=== PATIENT | male | born 1950 | race Caucasian/White ===

== ENCOUNTER 2017-08-03 00:51 | Inpatient (IN) | payer MEDICARE, OTHER ==
--- NOTE | 2017-08-03 01:02 | ED Physician Chart ---
ED Chief Complaint/HPI - Patient Information Date Seen:: 08/03/17 Time Seen:: 01:02 Chief Complaint:: Increased agitation History of Present Illness:: 66 yo male was brought from SNF to ER for evaluation of agitation and aggressiveness toward staff. He was trying to pull right right chest Fady catheter. He had ESRD on hemodialysis. 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 Allergies:: Allergies Allergy/AdvReac Type Severity Reaction Status Date / Time No Known Allergies Allergy Verified 08/03/17 00:52 ED Review of Systems - Review of Systems General/Constitutional: No fever Skin: No bruising Head: No headache Eyes: No pain ENT: No nasal drainage Neck: No neck pain Cardio Vascular: No chest pain Pulmonary: No cough GI: No nausea, No vomiting Musculoskeletal: No bone or joint pain Neurological: No focal symptoms ED Past Medical History - Past Medical History Past Medical History: HTN, DM, Dyslipidemia, PUD/GERD, ESRD, Thyroid disorder, Other (anemia of chronic kidney disease, BPH) Social History: Non Smoker, No Alcohol, No Drug Use Surgical History: CABG, other (Amputations of right 3rd, 4th, and 5th digits, Bilateral BTK amputations) Family Medical History - Family Member Mother History Unknown: Yes ED Physical Exam - Physical Examination General/Constitutional: Awake Other Gen/Cons comments:: Oriented to self and date Head: Atraumatic Eyes: PERRL Skin: No rash ENMT: Nasal exam nl Neck: No nuchal rigidity Other Respiratory comments:: Right chest Fady catheter intact. Decreased left lung sound Cardio Vascular: RRR, No murmur, gallop, rubs, NL S1 S2 GI: No tenderness/rebounding/guarding Other Extremities comments:: Bilateral BTK amputations, Right 3rd, 4th and 5th digits amputations Neuro/Psych: Normal sensory exam ED Labs/Radiology/EKG Results - Radiology Results Results: CXR: left lungs opacity ED Assessment - Assessment General Assessment: Left lung pneumonia Psychosis ESRD Dependent on dialysis Assessment/Comments:: CBC, CMP, UA CXR, EKG Oxygen support Admit to med surg for further evaluation and management ED Septic Shock - . Is Septic Shock (SBP<90, OR Lactate>4 mmol\L) present?: No ED Reassessment (Disposition) - Reassessment Reassessment Condition:: Improved - Patient Disposition Discharge/Transfer:: Acute Care w/in this hosp Admitting Medical Physician:: Hira Gaston
[2017-08-03 01:24] LABS: % BASOPHILS 0.7 % (0.0-2.0); % EOSINOPHILS 5.2 % (0.0-5.0); % LYMPHOCYTES 28.2 % (20.0-50.0); % MONOCYTES 10.9 % (2.0-10.0); EOSINOPHILE ABSOLUTE 0.3 Th/cmm (0.1-0.4); HEMATOCRIT 27.5 % (41.0-60); HEMOGLOBIN 8.9 gm/dL (12-16); LYMPHOCYTE ABSOLUTE 1.9 Th/cmm (1.5-3.0); MEAN CELL VOLUME 95.2 fl (80-99); MEAN CORPUSCULAR HEMOGLOBIN 30.8 pg (27.0-31.0); MEAN CORPUSCULAR HGB CONC 32.4 pg (28.0-36.0); MEAN PLATELET VOLUME 7.9 fl; MONOCYTE ABSOLUTE 0.7 Th/cmm (0.3-1.0); NEUTROPHILE ABSOLUTE 3.7 Th/cmm (1.8-8.0); PLATELET COUNT 308 Th/cmm (150-400); RED BLOOD COUNT 2.88 Mil/cmm (3.80-5.80); RED CELL DISTRIBUTION WIDTH 13.7 % (11.5-20.0); WHITE BLOOD COUNT 6.6 Th/cmm (4.8-10.8)
[2017-08-03 01:39] LABS: ALB/GLOB RATIO 0.8 (1.0-1.8); ALBUMIN 2.8 gm/dL (4.2-5.5); ANION GAP 9.3 (7.0-16.0); BILIRUBIN,TOTAL 0.6 mg/dL (0.3-1.0); CALCIUM SERUM 8.4 mg/dL (8.6-10.3); CARBON DIOXIDE 27.2 mEq/L (21.0-31.0); CREATININE - SERUM 2.6 mg/dL (0.7-1.3); GFR AFRICAN-AMERICAN 31.7 ml/min (>90); GFR NON AFRICAN-AMERICAN 26.2 ml/min; POTASSIUM SERUM 3.5 mEq/L (3.5-5.1); TOTAL PROTEIN,SERUM 6.4 gm/dL (6.0-8.3)
[2017-08-03] MEDS ORDERED: Albuterol Nebulizer 2.5mg/3mL HHN PRN (07:00)
[2017-08-03] MEDS ORDERED: Ipratropium Neb 0.5 mg/2.5 mL UD HHN PRN (07:21)
[2017-08-03] MEDS ORDERED: Morphine Sulfate 4 mg/mL 1mL Syr IVP PRN (07:23)
[2017-08-03] MEDS ORDERED: Dextrose 50% 50 mL Abboject IVP PRN (07:23)
[2017-08-03] MEDS ORDERED: Mag Sulfate 2gm/50mL Premix 2 GM/50 ML BAG IV PRN (07:23)
[2017-08-03] MEDS ORDERED: Potassium Chloride 20 mEq ER Tab PO PRN (07:23)
[2017-08-03] MEDS ORDERED: Potassium Chloride 40 MEQ, Lidocaine 1% 20mL Vial 25 MG in Sodium Chloride 0.9% 250 ML IV PRN (07:23)
[2017-08-03] MEDS ORDERED: INSULIN ASPART SLIDING SCALE 100 UNITS/ML UNIT SUBQ SCH (07:30)
--- NOTE | 2017-08-03 08:18 | Diagnostic Imaging Report ---
Portable chest x-ray HISTORY: Shortness of breath The exam demonstrates opacification of the majority of the left hemithorax suggesting a large pleural effusion. Underlying pulmonary parenchymal pathology cannot be excluded. Obscuration of the left heart margin. Multiple metallic densities project over the right upper chest and right neck region. Additional surgical clips noted in the right upper hemithorax. A vascular catheter extends into the region of the right atrium. IMPRESSION: 1. Opacification of the majority of the left hemithorax suggesting a pleural effusion. Underlying pulmonary parenchymal pathology cannot be excluded 2. Surgical changes 3. Metallic densities projecting over the right upper chest and right lower neck region 4. Vascular catheter tip extending into the region of the right atrium.
--- NOTE | 2017-08-03 08:43 | History & Physical ---
ADMIT DATE: 08/03/2017 CHIEF COMPLAINT: Agitation, psychosis, aggressive behavior, worsening confusion and pulling out hemodialysis access. HISTORY OF PRESENT ILLNESS: The patient is a 66-year-old male. He lives in a facility. He sees Dr. Hopkins as a psychiatrist. He has history of mood disorder and psychosis as well. Yesterday, he became more confused and he was more altered as well. He was also very agitated and aggressive towards the staff. Apparently, he also pulled out his right chest Fady catheter. He is a dialysis patient, along with history of diabetes along with anemia, bilateral BKAs, dyslipidemia and peripheral arterial disease. SOCIAL HISTORY: No documented history of alcohol, tobacco, or drug abuse. FAMILY HISTORY: Noncontributory. ALLERGIES: No known drug allergies. SURGICAL HISTORY: Positive for bilateral BKAs and dialysis access placement. MEDICATIONS: All medications reviewed and reconciled. FAMILY HISTORY: Noncontributory. REVIEW OF SYSTEMS: GENERAL: Positive for worsening fatigue, worsening confusion, decreased appetite and aggressive behavior as well. HEENT: No recent head trauma or change in vision, taste, hearing, or smell. ORAL: No recent pain or discharge. NECK: No recent tracheal deviation. ABDOMEN: No recent pain or distension. SKIN: No recent rashes. HEMATOLOGY: He has history of severe peripheral arterial disease. NEUROLOGIC: He has history of diabetic neuropathy. ENDOCRINE: He has history of diabetes out of control. EXTREMITIES/MUSCULOSKELETAL: He has history of bilateral BKAs. PHYSICAL EXAMINATION: VITAL SIGNS: Temperature is 98.8 degrees, heart rate is 86, respirations 17, blood pressure 166/66. Currently, no pain. GENERAL: No acute distress. He is sleepy; however, he does awaken to verbal and physical stimulus. He is confused. HEENT: No acute issues. NECK: Trachea is midline. No JVD. CARDIOVASCULAR: Regular rate and rhythm. RESPIRATORY: Decreased breath sounds bilaterally. PSYCHIATRIC: He has labile mood. He had episodes of psychosis and aggressive behavior yesterday. NEUROLOGIC: No evidence of acute stroke or seizure activity. EXTREMITIES: Bilateral BKA stumps are dry. GENITOURINARY: No hematuria is noted. LABORATORY DATA: White count is 6.6, hemoglobin is 8.9, platelet count 308,000. Sodium 134, potassium 3.5, chloride 101, bicarbonate 27.2, BUN 15, creatinine 2.6, glucose 214, alkaline phosphatase 189. Albumin is 2.8. Chest x-ray and UA are pending. ASSESSMENT: 1. Metabolic encephalopathy. 2. Vasomotor nephropathy. 3. Psychosis. 4. Anemia of chronic illness. 5. Moderate malnutrition. 6. Diabetes mellitus, out of control. 7. Bilateral BKA. 8. Deep vein thrombosis. 9. Hyperlipidemia. 10. Hyponatremia. 11. Neuropathy/diabetic neuropathy. 12. Peripheral arterial disease. 13. Hypertension, out of control. PLAN: UA and chest x-ray are pending. We will continue the patient's home medications. They have all been reviewed. He is on Eliquis for his history of DVT. Continue atorvastatin for dyslipidemia. Dr. Hopkins has been consulted. He may be a candidate for Geropsych Unit once he is medically cleared. His blood pressure medications have been reconciled. His blood pressure has been fluctuating. Also, his diabetes is out of control. He has been refusing fingerstick checks. I advised him to let us do his insulin sliding scale. Continue levothyroxine for his hypothyroidism. Also Dr. Zimmerman has been consulted for nephrology. He will require dialysis. We will assess for the need for a new catheter. JOB# [id number]
[2017-08-03] MEDS ORDERED: Non-Formulary Item 1 EA (Apixaban [Eliquis] 5 MG) PO SCH (09:00)
[2017-08-03] MEDS: INSULIN ASPART SLIDING SCALE 100 UNITS/ML UNIT SUBQ SCH ×5 (09:30→20:51)
[2017-08-03] MEDS: Vitamin B Complex w/Vitamin C Tab PO SCH ×2 (09:32→09:43)
[2017-08-03] MEDS: Ferrous Sulfate 325 MG TAB PO SCH ×4 (09:32→20:50)
[2017-08-03] MEDS: Aspirin 81mg Chewable Tab PO SCH (09:33)
[2017-08-03] MEDS: Levothyroxine 0.1 Mg Tab PO SCH (09:36)
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
[2017-08-03 16:23] LABS: A1C % 5.2 % (4.0-6.0)
[2017-08-03 18:12] LABS: URINE MICROSCOPIC INDICATED? YES; URINE SOURCE RANDOM
[2017-08-03 18:17] LABS: URINE BILIRUBIN NEGATIVE (NEGATIVE); URINE BLOOD LARGE (NEGATIVE); URINE GLUCOSE (UA) NEGATIVE (NEGATIVE); URINE KETONE NEGATIVE (NEGATIVE); URINE LEUKOCYTE ESTERASE TRACE (NEGATIVE); URINE NITRATE NEGATIVE (NEGATIVE); URINE PROTEIN 100 mg/dL (NEGATIVE); URINE UROBILINOGEN 0.2 E.U./dL (0.2 - 1.0)
[2017-08-03 18:23] LABS: URINE CLARITY HAZY (CLEAR); URINE COLOR YELLOW
[2017-08-03 18:25] LABS: URINE BACTERIA NONE SEEN /hpf (NONE SEEN); URINE EPITHELIAL CELLS FEW /lpf (FEW); URINE RBC 25-50 /hpf (0-5); URINE WBC 0-2 /hpf (0-5)
--- NOTE | 2017-08-03 21:37 | Consultation ---
DATE OF CONSULTATION: 08/03/2017 PSYCHIATRIC CONSULT PATIENT'S AGE: 66-year-old. SEX: Male. PHYSICIAN: Dr. Gaston. PROPERTY MANAGEMENT BOOKKEEPER: Dr. Hopkins. REASON FOR THE CONSULT: Psychosis and agitation. HISTORY OF PRESENT ILLNESS: The patient is a 66-year-old male who was admitted to the hospital because of increased agitation and irritability. The patient is living in a [facility] in the [facility]. I received a call from the nursing melting supervisor and the facility because the patient has been agitated and irritable and aggressive with the staff and he was transferred to the hospital. The patient currently is confused and agitated. Because of his agitation, I was not able to answer any of my questions coherently. Also, has been fighting with the staff and resisting care. PAST PSYCHIATRIC HISTORY: The patient has history of dementia and psychosis. PAST MEDICAL HISTORY: The patient has hypertension as well as diabetes mellitus and hyperlipidemia as well as peptic ulcer disease and hypothyroidism. SOCIAL HISTORY: The patient lives in [facility]. No known alcohol or drug use. ALLERGIES: No known allergies. MENTAL STATUS EXAM: The patient appears older than his stated age. Agitated. Disheveled. Restless. Disorganized thoughts. The patient did not answer any questions because of his agitation and irritability. The patient is agitated and he is restless and unable to answer any of my questions or follow any of my instructions. Poor insight and poor judgment. ASSESSMENT: PRIMARY DIAGNOSIS: Unspecified psychosis. SECONDARY DIAGNOSIS: Dementia, moderate to severe, with psychotic features. TREATMENT PLAN: We will monitor the patient's behavior closely. We will start individual as well as milieu psychotherapy. Also, we will start the patient on Seroquel 12.5 mg twice a day and we will follow up. Thanks to Dr. Gaston and we will follow with you. JOB# [id number]
--- NOTE | 2017-08-03 22:47 | Consultation ---
DATE OF CONSULTATION: 08/03/2017 RENAL CONSULTATION REFERRING PHYSICIAN: Dr. Gaston. REASON FOR CONSULTATION: End-stage renal disease, on chronic hemodialysis. HISTORY OF PRESENT ILLNESS: I was kindly asked by Dr. Gaston to evaluate this 66-year-old male with end-stage renal disease. The patient lives in a facility in [place]. Yesterday, he was confused, altered and agitated. He pulled out his right chest Fady catheter; therefore, he was sent to this hospital for Geropsych. PAST MEDICAL HISTORY: Diabetes, hypertension, bilateral BKA, dyslipidemia, peripheral artery disease and end-stage renal disease. FAMILY HISTORY: Noncontributory. ALLERGIES: No known drug allergies. SOCIAL HISTORY: Negative for smoking, alcohol or drugs. SURGICAL HISTORY: Bilateral BKA and dialysis access. MEDICATIONS: As listed in the chart. FAMILY HISTORY: Noncontributory. LABORATORY DATA: White count 6.6, H and H is 8.9 and 27.5 and platelets 208. Potassium 3.5, bicarbonate 27, BUN is 15, creatinine is 2.6 and glucose is 183. PHYSICAL EXAMINATION: VITAL SIGNS: Blood pressure is 164/79, heart rate is 85 and temperature 97.6. HEENT: Anicteric sclerae. NECK: Supple. No JVD. LUNGS: Clear to auscultation bilaterally. CARDIOVASCULAR: Regular rate and rhythm. ABDOMEN: Soft, nontender and nondistended. EXTREMITIES: No edema, no cyanosis. He has bilateral BKA. NEUROLOGIC: The patient is lethargic. ASSESSMENT AND PLAN: A 66-year-old male with diabetes, hypertension, bilateral below-knee amputations, end-stage renal disease and psychosis. The patient will be dialyzed tomorrow morning. We will make sure that the catheter is in the right place. JOB# [id number]
--- NOTE | 2017-08-04 01:49 | Consultation ---
DATE OF CONSULTATION: 08/03/[address] Gaston. Thank you very much Dr. Gsaton for this consultation. HISTORY OF PRESENT ILLNESS: This is a 66-year-old male who was getting agitated. He lives in the facility. He has history of end-stage renal disease, on dialysis for the past year. According to the family, the patient has history of diabetes, bilateral BKA and he was found to have pleural effusion on the chest x-ray and we were called for further evaluation. The patient denies any shortness of breath, minimal congestion on and off. He denies any distress. SOCIAL HISTORY: No smoking, drinking, or drug use. PHYSICAL EXAMINATION: GENERAL: Awake, alert, not in acute distress. VITAL SIGNS: Temperature is 97.6, pulse 85, respiration 16, blood pressure 164/79, saturation 99%. HEENT: Atraumatic, normocephalic. Pupils reactive to light and accommodation. Ears, nose and throat are normal. NECK: Supple. No JVD. CHEST: There are decreased breath sounds in left base, few rhonchi bilaterally. HEART: Regular rate and rhythm. ABDOMEN: Soft, nontender. EXTREMITIES: No edema. LABORATORY DATA: WBC 6.6, hemoglobin 8.9, hematocrit 27.5, platelets 308. Sodium is 134, potassium 3.5, BUN is 15, creatinine 2.6. TSH is 5.22. Chest x-ray, bilateral effusion, more significant on the left side, the cardiomegaly. IMPRESSION: This is a 66-year-old male with some fluid overload and significant pleural effusion on the left side without any consolidation as well. PLAN: 1. CT of the chest. 2. Ultrasound-guided thoracentesis of the left side. 3. Hemodialysis. Follow up chest x-ray. We will follow the patient with you. Thank you very much for this consultation. JOB# [id number]
[2017-08-04 06:21] LABS: % EOSINOPHILS 5.1 % (0.0-5.0); % LYMPHOCYTES 28.4 % (20.0-50.0); % MONOCYTES 11.8 % (2.0-10.0); % NEUTROPHILS 53.7 % (40.0-80.0); BASOPHILE ABSOLUTE 0.1 Th/cumm (0-0.2); EOSINOPHILE ABSOLUTE 0.4 Th/cmm (0.1-0.4); HEMATOCRIT 27.9 % (41.0-60); HEMOGLOBIN 9.4 gm/dL (12-16); LYMPHOCYTE ABSOLUTE 2.3 Th/cmm (1.5-3.0); MEAN CELL VOLUME 93.6 fl (80-99); MEAN CORPUSCULAR HEMOGLOBIN 31.7 pg (27.0-31.0); MEAN CORPUSCULAR HGB CONC 33.8 pg (28.0-36.0); MEAN PLATELET VOLUME 7.8 fl; NEUTROPHILE ABSOLUTE 4.3 Th/cmm (1.8-8.0); PLATELET COUNT 294 Th/cmm (150-400); RED BLOOD COUNT 2.98 Mil/cmm (3.80-5.80); RED CELL DISTRIBUTION WIDTH 14.2 % (11.5-20.0); WHITE BLOOD COUNT 8.1 Th/cmm (4.8-10.8)
[2017-08-04] MEDS: Levothyroxine 0.1 Mg Tab PO SCH (06:35)
[2017-08-04 06:38] LABS: ANION GAP 11.1 (7.0-16.0); CARBON DIOXIDE 25.9 mEq/L (21.0-31.0); CREATININE - SERUM 3.9 mg/dL (0.7-1.3); GFR AFRICAN-AMERICAN 19.9 ml/min (>90); GFR NON AFRICAN-AMERICAN 16.4 ml/min
[2017-08-04] MEDS: INSULIN ASPART SLIDING SCALE 100 UNITS/ML UNIT SUBQ SCH ×4 (06:48→21:34)
[2017-08-04 07:05] LABS: INR 1.09 (0.5-1.4); PROTHROMBIN TIME (TEST) 11.3 SECONDS (9.5-11.5)
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
[2017-08-04] MEDS: Aspirin 81mg Chewable Tab PO SCH (08:41)
[2017-08-04] MEDS: Ferrous Sulfate 325 MG TAB PO SCH ×3 (08:41→21:25)
[2017-08-04] MEDS: Vitamin B Complex w/Vitamin C Tab PO SCH (08:42)
--- NOTE | 2017-08-04 10:39 | Diagnostic Imaging Report ---
Ultrasound-guided left thoracentesis HISTORY: Left pleural effusion COMPARISON: CT chest 07/26/2017 Technique/procedure: Informed consent was obtained and sterile techniques were utilized. Using ultrasound guidance 1.8 liters of red tinged colored fluid was drained from the left pleural space and sent to the laboratory for analysis. The patient tolerated the procedure without any immediate complications. IMPRESSION: Successful left-sided ultrasound-guided thoracentesis as above.
--- NOTE | 2017-08-04 10:39 | Progress Notes ---
DATE: 08/04/2017 SUBJECTIVE: Chart reviewed and the patient interviewed. Also, discussed the patient's condition with the staff and reviewed records and labs. The patient seems to be slightly calmer than before. He also seems to be less irritable and less agitated. The patient also still has episodes of anger and irritability, but seems to be less than before. Otherwise, the patient continued to comply with taking his medications with no side effects of gabapentin or Seroquel. [facility]# [id number]
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
[2017-08-04] MEDS: Piperacillin/Tazobact 2.25 gm in 0.9% NS 50 ML IV SCH ×2 (12:02→21:25)
--- NOTE | 2017-08-04 14:58 | Diagnostic Imaging Report ---
CHEST X-RAY: AP view INDICATION: Status post left thoracentesis, left pneumothorax COMPARISON: Chest x-ray earlier the same day FINDINGS: Right dialysis catheter is stable. There is a left-sided pneumothorax estimated at 25% greatest along the left apex. There is probable minimal pneumothorax along the left base. A small left effusion is noted. Left basal airspace disease is noted. Mild cardiomegaly is noted. IMPRESSION: Left-sided pneumothorax estimated at 25% greatest along the left apex. Clinical correlation and continued follow-up is recommended. Small left effusion and left basal airspace disease. Results were conveyed to the referring team following the exam.
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
--- NOTE | 2017-08-04 16:32 | General Progress Note ---
Subjective - Review of Systems Service Date: 08/04/17 Subjective: patient seen and examined. patient had thorocentesis 1.8 liters removed feeling better Objective - Results Result Diagrams: 08/04/17 06:10 08/04/17 06:10 Recent Labs: Laboratory Last Values WBC 8.1 Th/cmm (4.8-10.8) 08/04/17 06:10 RBC 2.98 Mil/cmm (3.80-5.80) L 08/04/17 06:10 Hgb 9.4 gm/dL (12-16) L 08/04/17 06:10 Hct 27.9 % (41.0-60) L 08/04/17 06:10 MCV 93.6 fl (80-99) 08/04/17 06:10 MCH 31.7 pg (27.0-31.0) H 08/04/17 06:10 MCHC Differential 33.8 pg (28.0-36.0) 08/04/17 06:10 RDW 14.2 % (11.5-20.0) 08/04/17 06:10 Plt Count 294 Th/cmm (150-400) 08/04/17 06:10 MPV 7.8 fl 08/04/17 06:10 Neutrophils % 53.7 % (40.0-80.0) 08/04/17 06:10 Lymphocytes % 28.4 % (20.0-50.0) 08/04/17 06:10 Monocytes % 11.8 % (2.0-10.0) H 08/04/17 06:10 Eosinophils % 5.1 % (0.0-5.0) H 08/04/17 06:10 Basophils % 1.0 % (0.0-2.0) 08/04/17 06:10 PT 11.3 SECONDS (9.5-11.5) 08/04/17 06:10 INR 1.09 (0.5-1.4) 08/04/17 06:10 PTT (Actin FS) 30.0 SECONDS (26.0-38.0) 08/04/17 06:10 Sodium 135 mEq/L (136-145) L 08/04/17 06:10 Potassium 4.0 mEq/L (3.5-5.1) 08/04/17 06:10 Chloride 102 mEq/L (98-107) 08/04/17 06:10 Carbon Dioxide 25.9 mEq/L (21.0-31.0) 08/04/17 06:10 Anion Gap 11.1 (7.0-16.0) 08/04/17 06:10 BUN 28 mg/dL (7-25) H 08/04/17 06:10 Creatinine 3.9 mg/dL (0.7-1.3) H 08/04/17 06:10 Est GFR ( Amer) 19.9 ml/min (>90) 08/04/17 06:10 Est GFR (Non-Af Amer) 16.4 ml/min 08/04/17 06:10 BUN/Creatinine Ratio 7.2 08/04/17 06:10 Glucose 125 mg/dL (70-105) H 08/04/17 06:10 POC Glucose 198 MG/DL (70 - 105) H 08/04/17 12:01 Hemoglobin A1c % 5.2 % (4.0-6.0) 08/03/17 01:15 Calcium 9.0 mg/dL (8.6-10.3) 08/04/17 06:10 Magnesium 1.8 mg/dL (1.9-2.7) L 08/03/17 01:15 Total Bilirubin 0.6 mg/dL (0.3-1.0) 08/03/17 01:15 AST 22 U/L (13-39) 08/03/17 01:15 ALT 13 U/L (7-52) 08/03/17 01:15 Alkaline Phosphatase 189 U/L (34-104) H 08/03/17 01:15 Total Protein 6.4 gm/dL (6.0-8.3) 08/03/17 01:15 Albumin 2.8 gm/dL (4.2-5.5) L 08/03/17 01:15 Globulin 3.6 gm/dL 08/03/17 01:15 Albumin/Globulin Ratio 0.8 (1.0-1.8) L 08/03/17 01:15 TSH 5.22 uIU/ml (0.34-5.60) 08/03/17 01:15 Urine Source RANDOM 08/02/17 17:50 Urine Color YELLOW 08/02/17 17:50 Urine Clarity HAZY (CLEAR) 08/02/17 17:50 Urine pH 7.0 (4.6 - 8.0) 08/02/17 17:50 Ur Specific [place] 1.020 (1.005-1.030) 08/02/17 17:50 Urine Protein 100 mg/dL (NEGATIVE) H 08/02/17 17:50 Urine Glucose (UA) NEGATIVE mg/dL (NEGATIVE) 08/02/17 17:50 Urine Ketones NEGATIVE mg/dL (NEGATIVE) 08/02/17 17:50 Urine Blood LARGE (NEGATIVE) H 08/02/17 17:50 Urine Nitrate NEGATIVE (NEGATIVE) 08/02/17 17:50 Urine Bilirubin NEGATIVE (NEGATIVE) 08/02/17 17:50 Urine Urobilinogen 0.2 E.U./dL (0.2 - 1.0) 08/02/17 17:50 Ur Leukocyte Esterase TRACE (NEGATIVE) H 08/02/17 17:50 Urine RBC 25-50 /hpf (0-5) H 08/02/17 17:50 Urine WBC 0-2 /hpf (0-5) 08/02/17 17:50 Ur Epithelial Cells FEW /lpf (FEW) 08/02/17 17:50 Urine Bacteria NONE SEEN /hpf (NONE SEEN) 08/02/17 17:50 - Physical Exam Vitals and I&O: Vital Signs Temp 97.4 F 08/04/17 10:50 Pulse 83 08/04/17 14:23 Resp 20 08/04/17 14:23 BP 88/51 08/04/17 13:44 Pulse Ox 96 08/04/17 14:23 Intake & Output 08/03/17 08/04/17 08/04/17 18:59 06:59 18:59 Intake Total 600 Output Total 15 Balance 585 Weight (lbs) 65.317 kg 65.317 kg Intake: Oral 600 Output: Urine 15 Other: # Voids 2 0 # Bowel Movements 0 Weight Source Estimated Bedscale Active Medications: Current Medications Acetaminophen (Tylenol) 650 mg PO Q6H PRN PRN Reason: HEADACHE/TEMP ABOVE 100F Stop: 10/02/17 07:22 Albuterol Sulfate (Albuterol 2.5mg/3ml Neb Ud) 2.5 mg HHN Q4HRT PRN PRN Reason: Shortness of Breath or Wheeze Stop: 10/02/17 06:59 Aspirin (Aspirin Chewable) 81 mg PO DAILY [facility] Stop: 10/02/17 08:59 Last Admin: 08/04/17 08:41 Dose: Not Given Atorvastatin Calcium (Lipitor) 40 mg PO HS [facility] Stop: 10/02/17 20:59 Last Admin: 08/03/17 20:49 Dose: 40 mg Carvedilol (Coreg) 3.125 mg PO BID [facility] Stop: 10/02/17 08:59 Last Admin: 08/04/17 08:43 Dose: Not Given Dextrose (D50w) 50 ml IVP PRN PRN PRN Reason: BLOOD SUGAR BELOW 60 Stop: 10/02/17 07:22 Docusate Sodium (Colace) 100 mg PO BID [facility] Stop: 10/02/17 08:59 Last Admin: 08/04/17 08:42 Dose: 100 mg Famotidine (Pepcid) 20 mg PO [facility] Stop: 10/02/17 20:59 Last Admin: 08/03/17 20:49 Dose: 20 mg Ferrous Sulfate (Iron) 325 mg PO TID [facility] Stop: 10/02/17 08:59 Last Admin: 08/04/17 13:43 Dose: Not Given Gabapentin (Neurontin) 300 mg PO [facility] Stop: 10/02/17 20:59 Last Admin: 08/03/17 20:49 Dose: 300 mg Hydralazine HCl (Apresoline) 25 mg PO TID [facility] Stop: 10/02/17 08:59 Last Admin: 08/04/17 13:43 Dose: Not Given Potassium Chloride 40 meq/Lidocaine HCl 25 mg/ Sodium Chloride 272.5 mls @ 68 mls/hr IV DAILY PRN PRN Reason: k level less than 3.2 Stop: 10/02/17 07:22 Magnesium Sulfate (Magnesium Sulfate Premix) 2 gm in 50 mls @ 25 mls/hr IV DAILY PRN PRN Reason: Magnesium level less than 1.6 Stop: 10/02/17 07:22 Piperacillin Sod/Tazobactam (Sod 2.25 gm/ Sodium Chloride) 50 mls @ 100 mls/hr IV Q8HR [facility] Stop: 10/03/17 12:59 Last Admin: 08/04/17 12:02 Dose: 100 mls/hr Insulin Aspart (Novolog Insulin Sliding Scale) 0 units SUBQ ACHS [facility] PRN Reason: Protocol Stop: 10/02/17 07:29 Last Admin: 08/04/17 13:43 Dose: Not Given Ipratropium [place] (Atrovent Neb 0.5mg/2.5ml) 0.5 mg HHN Q4HRT PRN PRN Reason: Shortness of Breath or Wheeze Stop: 10/02/17 07:20 Isosorbide Dinitrate (Isordil) 10 mg PO TID [facility] Stop: 10/02/17 08:59 Last Admin: 08/04/17 13:44 Dose: Not Given Levothyroxine Sodium (Synthroid) 0.1 mg PO QDAC [facility] Stop: 10/02/17 08:59 Last Admin: 08/04/17 06:35 Dose: 0.1 mg Lorazepam (Ativan) 1 mg IVP Q4HR PRN; Protocol PRN Reason: Anxiety Stop: 10/02/17 07:22 Magnesium Oxide (Mag-Oxide) 400 mg PO BID PRN PRN Reason: Mg less than 1.9 Stop: 10/02/17 07:22 Last Admin: 08/04/17 08:42 Dose: 400 mg Miscellaneous (Apixaban [Eliquis]) 5 mg PO BID [facility] Stop: 10/02/17 08:59 Miscellaneous (Clinical Monitoring) 1 [facility] DAILY PRN PRN Reason: RENAL Stop: 10/02/17 10:23 Miscellaneous (Zosyn Iv Per Pharmacy) 1 [facility] PRN PRN PRN Reason: PROTOCOL Stop: 10/03/17 08:27 Miscellaneous (Pharmacy To Dose) 1 [facility] PRN [facility] Stop: 10/05/17 15:59 Morphine Sulfate (Morphine) 1 mg IVP Q4HR PRN PRN Reason: Severe Pain Stop: 10/02/17 07:22 Nitroglycerin (Nitrostat) 0.4 mg SL TID PRN PRN Reason: Chest Pain Stop: 10/02/17 07:20 Ondansetron HCl (Zofran) 4 mg IVP Q6H PRN PRN Reason: Nausea / Vomiting Stop: 10/02/17 07:22 Potassium Chloride (Klor-Con) 40 meq PO DAILY PRN PRN Reason: k level less than 3.5 Stop: 10/02/17 07:22 Quetiapine Fumarate 100 mg/ (Quetiapine Fumarate 25 mg) 125 mg PO BID [facility] Stop: 10/02/17 09:59 Last Admin: 08/04/17 08:47 Dose: Not Given Tamsulosin HCl (Flomax) 0.4 mg PO DAILY [facility] Stop: 10/02/17 08:59 Last Admin: 08/04/17 08:41 Dose: 0.4 mg Vitamin B Complex/Vit C/Folic Acid (Vitamin B Complex W/Vitamin C) 1 tab PO DAILY [facility] Stop: 10/02/17 08:59 Last Admin: 08/04/17 08:42 Dose: 1 tab Zinc Sulfate (Zinc Sulfate) 220 mg PO DAILY [facility] Stop: 10/02/17 08:59 Last Admin: 08/04/17 08:41 Dose: 220 mg Zolpidem Tartrate (Ambien) 5 mg PO HS PRN PRN Reason: Insomnia Stop: 10/02/17 07:20 General: Cooperative, No acute distress HEENT: Atraumatic, PERRLA Neck: Supple, no JVD Cardiovascular: Regular rate, Normal S1, Normal S2 Lungs: Other (has bl rales and congestion) Abdomen: Bowel sounds, Soft Extremities: Other (has bl bka) - Procedures Procedures: Procedures Procedure Code Date ASPIRATE PLEURA W/ IMAGING 87103 08/03/17 DRAINAGE OF LEFT PLEURAL CAVITY, PERCUTANEOUS APPROACH [id number] 08/03/17 Assessment/Plan - Assessment Assessment: ESRD PLEURAL EFFUSION PNEUMONIA DM TYPE 2 PVD B/L BKA - Plan Plan: CONTINUE HD SUPPORT Nutritional Asmnt/Malnutr-PDOC - Dietary Evaluation Malnutrition Findings (Please click <Entered> for more info): Nutritional Asmnt/Malnutrition Start: 08/03/17 17: 24 Text: Status: Complete Freq: Document 08/03/17 17:24 AMOS (Rec: 08/03/17 17:41 AMOS [email or web address]) Nutritional Asmnt/Malnutrition Patient General Information Nutritional Screening High Risk Consult Diagnosis PNA Pertinent Medical Hx/Surgical Hx HTN, DM, dyslipidemia, PUD/ GERD, ESRD, thyroid disorder, anemia of CKD, BPH, CABG, bilateral BKA, amputations of right 3rd, 4th and 5th digits Subjective Information Consult received for BS 214 at admission and low moni score, chronic surgical site. Pt seen sleeping at time of visit. RN reported pt ate well , consumed 100% of breakfast this morning. Current Diet Order/ Nutrition Support [facility]-60 Pertinent Medications colace, iron, novolog, synthroid, vit B complex w/vit C, zinc Pertinent Labs 08/03 Na 134, K 3.5, Cl 101, BUN 15, Cr 2.6, glucose 214, POC 183-196, A1c 5.2, Ca 8.4 Nutritional Hx/Data Height 1.65 m Height (Calculated Centimeters) 165.1 Current Weight (lbs) 65.317 kg Weight (Calculated Kilograms) 65.3 Weight (Calculated Grams) 81095.3 [place] Body Weight 136 % [place] Body Weight 105 Body Mass Index (BMI) 23.9 GI Symptoms GI Symptoms None Last BM 08/03 x 2 Difficult in: None Skin Integrity/Comment: Moni 12 scab to left wrist and left arm, reddened scar to sacrum Current %PO Good (75-100%) Estimated Nutritional Goals BEE in Kcals: Using Current wt Calories/Kcals/Kg 25-30 Kcals Calculated 5295-5350 Protein: Using Current wt Protein g/k-1.2 Protein Calculated 64-77 Fluid: ml 1600-1920ml (1ml/kcal) Nutritional Problem 1. Problem Problem altered nutrition related labs Etiology hx of DM Signs/Symptoms: glucose 214, POC 183-196 Malnutrition Alert Protein-Calorie Malnutrition N/A Is there a minimum of two criteria No selected? Query Text:Check all the applicable criteria. A minimum of two criteria are recommended for diagnosis of either severe or non-severe malnutrition. Intervention/Recommendation Comments 1. Continue with [facility]-60 diet as ordered. 2. Monitor PO intake, wt, labs and skin integrity 3. F/U as moderate risk in 3-5 days, 4/-08/09 Expected Outcomes/Goals Expected Outcomes/Goals 1. PO intake to meet at least 75% of nutritional needs. 2. Wt stability, skin to remain intact, labs to approach WNL.
[2017-08-04 20:10] LABS: BODY FLUID SOURCE THROACENTHESIS
[2017-08-04 20:11] LABS: BF APPEARANCE BLOODY; BF COLOR RED; BF WBC 239 /cumm
[2017-08-04 20:12] LABS: BF MONOCYTES 4 %; BF RBC 19350 /cumm
[2017-08-05] MEDS: Piperacillin/Tazobact 2.25 gm in 0.9% NS 50 ML IV SCH ×3 (04:16→21:13)
[2017-08-05 06:20] LABS: % BASOPHILS 0.6 % (0.0-2.0); % EOSINOPHILS 4.6 % (0.0-5.0); % LYMPHOCYTES 21.1 % (20.0-50.0); % MONOCYTES 11.9 % (2.0-10.0); % NEUTROPHILS 61.8 % (40.0-80.0); EOSINOPHILE ABSOLUTE 0.4 Th/cmm (0.1-0.4); HEMATOCRIT 28.5 % (41.0-60); HEMOGLOBIN 9.5 gm/dL (12-16); LYMPHOCYTE ABSOLUTE 1.8 Th/cmm (1.5-3.0); MEAN CELL VOLUME 94.7 fl (80-99); MEAN CORPUSCULAR HEMOGLOBIN 31.7 pg (27.0-31.0); MEAN CORPUSCULAR HGB CONC 33.5 pg (28.0-36.0); MEAN PLATELET VOLUME 8.3 fl; NEUTROPHILE ABSOLUTE 5.1 Th/cmm (1.8-8.0); PLATELET COUNT 306 Th/cmm (150-400); RED CELL DISTRIBUTION WIDTH 14.1 % (11.5-20.0); WHITE BLOOD COUNT 8.3 Th/cmm (4.8-10.8)
[2017-08-05] MEDS: INSULIN ASPART SLIDING SCALE 100 UNITS/ML UNIT SUBQ SCH ×4 (06:39→21:21)
[2017-08-05] MEDS: Levothyroxine 0.1 Mg Tab PO SCH (06:50)
[2017-08-05 06:51] LABS: ANION GAP 13.5 (7.0-16.0); CARBON DIOXIDE 23.2 mEq/L (21.0-31.0); CREATININE - SERUM 3.4 mg/dL (0.7-1.3); GFR AFRICAN-AMERICAN 23.3 ml/min (>90); GFR NON AFRICAN-AMERICAN 19.2 ml/min; POTASSIUM SERUM 3.7 mEq/L (3.5-5.1)
--- NOTE | 2017-08-05 09:08 | Diagnostic Imaging Report ---
CHEST X-RAY: AP view INDICATION: Pneumothorax COMPARISON: Chest x-ray 07/26/2018 FINDINGS: Left apical pneumothorax and probable left basal pneumothorax is noted estimated at 25-30%. Increased left lower lung zone markings are noted. Right dialysis catheter is stable. IMPRESSION: Left-sided pneumothorax greatest along the left apex estimated at 25% Increased left basal lung markings may be due to atelectasis versus less likely infiltrate.
--- NOTE | 2017-08-05 09:17 | General Progress Note ---
Subjective - Review of Systems Service Date: 08/05/17 Subjective: Pt seen and eval. I've been discussin care with daughter in detail. She was able to answer many questions. 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 Pt is very non complaint with food. He still eats desserts in spite of dm-ooc. Pt more comfortable now. No fevers or chills. No cough. Has sob with exertion. Pt is status post L thoracentesis on 08/04/17, and 1.8 liters removed. Has small Pneumothorax. Objective - Results Result Diagrams: 08/05/17 05:50 08/05/17 05:50 Recent Labs: Laboratory Last Values WBC 8.3 Th/cmm (4.8-10.8) 08/05/17 05:50 RBC 3.00 Mil/cmm (3.80-5.80) L 08/05/17 05:50 Hgb 9.5 gm/dL (12-16) L 08/05/17 05:50 Hct 28.5 % (41.0-60) L 08/05/17 05:50 MCV 94.7 fl (80-99) 08/05/17 05:50 MCH 31.7 pg (27.0-31.0) H 08/05/17 05:50 MCHC Differential 33.5 pg (28.0-36.0) 08/05/17 05:50 RDW 14.1 % (11.5-20.0) 08/05/17 05:50 Plt Count 306 Th/cmm (150-400) 08/05/17 05:50 MPV 8.3 fl 08/05/17 05:50 Neutrophils % 61.8 % (40.0-80.0) 08/05/17 05:50 Lymphocytes % 21.1 % (20.0-50.0) 08/05/17 05:50 Monocytes % 11.9 % (2.0-10.0) H 08/05/17 05:50 Eosinophils % 4.6 % (0.0-5.0) 08/05/17 05:50 Basophils % 0.6 % (0.0-2.0) 08/05/17 05:50 PT 11.3 SECONDS (9.5-11.5) 08/04/17 06:10 INR 1.09 (0.5-1.4) 08/04/17 06:10 PTT (Actin FS) 30.0 SECONDS (26.0-38.0) 08/04/17 06:10 Sodium 136 mEq/L (136-145) 08/05/17 05:50 Potassium 3.7 mEq/L (3.5-5.1) 08/05/17 05:50 Chloride 103 mEq/L (98-107) 08/05/17 05:50 Carbon Dioxide 23.2 mEq/L (21.0-31.0) 08/05/17 05:50 Anion Gap 13.5 (7.0-16.0) 08/05/17 05:50 BUN 22 mg/dL (7-25) 08/05/17 05:50 Creatinine 3.4 mg/dL (0.7-1.3) H 08/05/17 05:50 Est GFR ( Amer) 23.3 ml/min (>90) 08/05/17 05:50 Est GFR (Non-Af Amer) 19.2 ml/min 08/05/17 05:50 BUN/Creatinine Ratio 6.5 08/05/17 05:50 Glucose 139 mg/dL (70-105) H 08/05/17 05:50 POC Glucose 141 MG/DL (70 - 105) H 08/05/17 06:37 Hemoglobin A1c % 5.2 % (4.0-6.0) 08/03/17 01:15 Calcium 9.0 mg/dL (8.6-10.3) 08/05/17 05:50 Magnesium 1.8 mg/dL (1.9-2.7) L 08/03/17 01:15 Total Bilirubin 0.6 mg/dL (0.3-1.0) 08/03/17 01:15 AST 22 U/L (13-39) 08/03/17 01:15 ALT 13 U/L (7-52) 08/03/17 01:15 Alkaline Phosphatase 189 U/L (34-104) H 08/03/17 01:15 Total Protein 6.4 gm/dL (6.0-8.3) 08/03/17 01:15 Albumin 2.8 gm/dL (4.2-5.5) L 08/03/17 01:15 Globulin 3.6 gm/dL 08/03/17 01:15 Albumin/Globulin Ratio 0.8 (1.0-1.8) L 08/03/17 01:15 TSH 5.22 uIU/ml (0.34-5.60) 08/03/17 01:15 Urine Source RANDOM 08/02/17 17:50 Urine Color YELLOW 08/02/17 17:50 Urine Clarity HAZY (CLEAR) 08/02/17 17:50 Urine pH 7.0 (4.6 - 8.0) 08/02/17 17:50 Ur Specific [place] 1.020 (1.005-1.030) 08/02/17 17:50 Urine Protein 100 mg/dL (NEGATIVE) H 08/02/17 17:50 Urine Glucose (UA) NEGATIVE mg/dL (NEGATIVE) 08/02/17 17:50 Urine Ketones NEGATIVE mg/dL (NEGATIVE) 08/02/17 17:50 Urine Blood LARGE (NEGATIVE) H 08/02/17 17:50 Urine Nitrate NEGATIVE (NEGATIVE) 08/02/17 17:50 Urine Bilirubin NEGATIVE (NEGATIVE) 08/02/17 17:50 Urine Urobilinogen 0.2 E.U./dL (0.2 - 1.0) 08/02/17 17:50 Ur Leukocyte Esterase TRACE (NEGATIVE) H 08/02/17 17:50 Urine RBC 25-50 /hpf (0-5) H 08/02/17 17:50 Urine WBC 0-2 /hpf (0-5) 08/02/17 17:50 Ur Epithelial Cells FEW /lpf (FEW) 08/02/17 17:50 Urine Bacteria NONE SEEN /hpf (NONE SEEN) 08/02/17 17:50 Fluid Source THROACENTHESIS 08/04/17 11:00 Fluid Color RED 08/04/17 11:00 Fluid Appearance BLOODY 08/04/17 11:00 Fluid WBC 239 /cumm 08/04/17 11:00 Fluid RBC 96347 /cumm 08/04/17 11:00 Fluid Neutrophils 5 % 08/04/17 11:00 Fluid Lymphocytes 89 % 08/04/17 11:00 Fluid Monocytes 4 % 08/04/17 11:00 Fluid Eosinophils 1 % 08/04/17 11:00 Fluid Basophils 1 % 08/04/17 11:00 Fluid Glucose 118.0 mg/dL 08/04/17 11:00 - Physical Exam Vitals and I&O: Vital Signs Temp 97.7 F 08/05/17 04:00 Pulse 87 08/05/17 08:43 Resp 20 08/05/17 08:43 BP 138/62 08/05/17 04:00 Pulse Ox 97 08/05/17 08:43 Intake & Output 08/04/17 08/05/17 08/05/17 18:59 06:59 18:59 Intake Total 50 770 Balance 50 770 Weight (lbs) 65.317 kg Intake: Intake, IV Amount 50 50 Piperacillin Sodium/ 50 50 Tazobact 2.25 gm In Sodium Chloride 0.9% 50 ml @ 100 mls/hr IV Q8HR [facility] Rx#:[id number] Oral 720 Other: # Voids 2 # Bowel Movements 1 Weight Source Estimated Active Medications: Current Medications Acetaminophen (Tylenol) 650 mg PO Q6H PRN PRN Reason: HEADACHE/TEMP ABOVE 100F Stop: 10/02/17 07:22 Albuterol Sulfate (Albuterol 2.5mg/3ml Neb Ud) 2.5 mg HHN Q4HRT PRN PRN Reason: Shortness of Breath or Wheeze Stop: 10/02/17 06:59 Aspirin (Aspirin Chewable) 81 mg PO DAILY [facility] Stop: 10/02/17 08:59 Last Admin: 08/04/17 08:41 Dose: Not Given Atorvastatin Calcium (Lipitor) 40 mg PO HS [facility] Stop: 10/02/17 20:59 Last Admin: 08/04/17 21:24 Dose: 40 mg Carvedilol (Coreg) 3.125 mg PO BID [facility] Stop: 10/02/17 08:59 Last Admin: 08/04/17 17:12 Dose: Not Given Dextrose (D50w) 50 ml IVP PRN PRN PRN Reason: BLOOD SUGAR BELOW 60 Stop: 10/02/17 07:22 Docusate Sodium (Colace) 100 mg PO BID [facility] Stop: 10/02/17 08:59 Last Admin: 08/04/17 17:12 Dose: 100 mg Famotidine (Pepcid) 20 mg PO HS [facility] Stop: 10/02/17 20:59 Last Admin: 08/04/17 21:25 Dose: 20 mg Ferrous Sulfate (Iron) 325 mg PO TID [facility] Stop: 10/02/17 08:59 Last Admin: 08/04/17 21:25 Dose: 325 mg Gabapentin (Neurontin) 300 mg PO HS [facility] Stop: 10/02/17 20:59 Last Admin: 08/04/17 21:25 Dose: 300 mg Hydralazine HCl (Apresoline) 25 mg PO TID [facility] Stop: 10/02/17 08:59 Last Admin: 08/04/17 21:24 Dose: 25 mg Potassium Chloride 40 meq/Lidocaine HCl 25 mg/ Sodium Chloride 272.5 mls @ 68 mls/hr IV DAILY PRN PRN Reason: k level less than 3.2 Stop: 10/02/17 07:22 Magnesium Sulfate (Magnesium Sulfate Premix) 2 gm in 50 mls @ 25 mls/hr IV DAILY PRN PRN Reason: Magnesium level less than 1.6 Stop: 10/02/17 07:22 Piperacillin Sod/Tazobactam (Sod 2.25 gm/ Sodium Chloride) 50 mls @ 100 mls/hr IV Q8HR [facility] Stop: 10/03/17 12:59 Last Admin: 08/05/17 04:16 Dose: 100 mls/hr Insulin Aspart (Novolog Insulin Sliding Scale) 0 units SUBQ ACHS [facility] PRN Reason: Protocol Stop: 10/02/17 07:29 Last Admin: 08/05/17 06:39 Dose: Not Given Ipratropium [place] (Atrovent Neb 0.5mg/2.5ml) 0.5 mg HHN Q4HRT PRN PRN Reason: Shortness of Breath or Wheeze Stop: 10/02/17 07:20 Isosorbide Dinitrate (Isordil) 10 mg PO TID [facility] Stop: 10/02/17 08:59 Last Admin: 08/04/17 21:24 Dose: 10 mg Levothyroxine Sodium (Synthroid) 0.1 mg PO QDAC [facility] Stop: 10/02/17 08:59 Last Admin: 08/05/17 06:50 Dose: 0.1 mg Lorazepam (Ativan) 1 mg IVP Q4HR PRN; Protocol PRN Reason: Anxiety Stop: 10/02/17 07:22 Magnesium Oxide (Mag-Oxide) 400 mg PO BID PRN PRN Reason: Mg less than 1.9 Stop: 10/02/17 07:22 Last Admin: 08/04/17 08:42 Dose: 400 mg Miscellaneous (Clinical Monitoring) 1 [facility] DAILY PRN PRN Reason: RENAL Stop: 10/02/17 10:23 Miscellaneous (Zosyn Iv Per Pharmacy) 1 [facility] PRN PRN PRN Reason: PROTOCOL Stop: 10/03/17 08:27 Miscellaneous (Pharmacy To Dose) 1 [facility] PRN [facility] Stop: 10/05/17 15:59 Morphine Sulfate (Morphine) 1 mg IVP Q4HR PRN PRN Reason: Severe Pain Stop: 10/02/17 07:22 Nitroglycerin (Nitrostat) 0.4 mg SL TID PRN PRN Reason: Chest Pain Stop: 10/02/17 07:20 Ondansetron HCl (Zofran) 4 mg IVP Q6H PRN PRN Reason: Nausea / Vomiting Stop: 10/02/17 07:22 Potassium Chloride (Klor-Con) 40 meq PO DAILY PRN PRN Reason: k level less than 3.5 Stop: 10/02/17 07:22 Quetiapine Fumarate 100 mg/ (Quetiapine Fumarate 25 mg) 125 mg PO BID [facility] Stop: 10/02/17 09:59 Last Admin: 08/04/17 17:12 Dose: 125 mg Rivaroxaban (Xarelto) 10 mg PO DAILY [facility] Stop: 10/04/17 08:59 Tamsulosin HCl (Flomax) 0.4 mg PO DAILY [facility] Stop: 10/02/17 08:59 Last Admin: 08/04/17 08:41 Dose: 0.4 mg Vitamin B Complex/Vit C/Folic Acid (Vitamin B Complex W/Vitamin C) 1 tab PO DAILY [facility] Stop: 10/02/17 08:59 Last Admin: 08/04/17 08:42 Dose: 1 tab Zinc Sulfate (Zinc Sulfate) 220 mg PO DAILY [facility] Stop: 10/02/17 08:59 Last Admin: 08/04/17 08:41 Dose: 220 mg Zolpidem Tartrate (Ambien) 5 mg PO HS PRN PRN Reason: Insomnia Stop: 10/02/17 07:20 General: Cooperative, No acute distress HEENT: Atraumatic, PERRLA Neck: Supple, no JVD Cardiovascular: Regular rate, Normal S1, Normal S2 Lungs: Other (has bl rales and congestion) Abdomen: Bowel sounds, Soft Extremities: Other (has bl bka) - Procedures Procedures: Procedures Procedure Code Date ASPIRATE PLEURA W/ IMAGING 96330 08/03/17 DRAINAGE OF LEFT PLEURAL CAVITY, PERCUTANEOUS APPROACH [id number] 08/03/17 Assessment/Plan - Assessment Assessment: Asp PNA ME VMN Anemia of Ch ill Psychosis Mod malnut CAD with hx of quad bypass sx in 2013 Dm-OOC BL BKA PAD Hyponatremia Diabetic Nephropathy and Neuropathy HTN-OOC L pleural effusiob L Pneumothorax - Plan Plan: Pt is scheduled for US guided thoracentesis of L pleural effusion. Dr. Hernandez and Dr. Zimmerman have seen the pt. Scheduled for dialysis today. On IV zosyn. Met with daughter. Discussed diabetic control. Status post L thoracentesis with 1.8 liters removed. Has L pneumothorax. Dr. Saez and Dr. Hernandez following. Nutritional Asmnt/Malnutr-PDOC - Dietary Evaluation Malnutrition Findings (Please click <Entered> for more info): Nutritional Asmnt/Malnutrition Start: 08/03/17 17: 24 Text: Status: Complete Freq: Document 08/03/17 17:24 HEN (Rec: 08/03/17 17:41 [email or web address] [email or web address]) Nutritional Asmnt/Malnutrition Patient General Information Nutritional Screening High Risk Consult Diagnosis PNA Pertinent Medical Hx/Surgical Hx HTN, DM, dyslipidemia, PUD/ GERD, ESRD, thyroid disorder, anemia of CKD, BPH, CABG, bilateral BKA, amputations of right 3rd, 4th and 5th digits Subjective Information Consult received for BS 214 at admission and low moni score, chronic surgical site. Pt seen sleeping at time of visit. RN reported pt ate well , consumed 100% of breakfast this morning. Current Diet Order/ Nutrition Support CCHO-60gm Pertinent Medications colace, iron, novolog, synthroid, vit B complex w/vit C, zinc Pertinent Labs 08/03 Na 134, K 3.5, Cl 101, BUN 15, Cr 2.6, glucose 214, POC 183-196, A1c 5.2, Ca 8.4 Nutritional Hx/Data Height 1.65 m Height (Calculated Centimeters) 165.1 Current Weight (lbs) 65.317 kg Weight (Calculated Kilograms) 65.3 Weight (Calculated Grams) 80227.3 [place] Body Weight 136 % [place] Body Weight 105 Body Mass Index (BMI) 23.9 GI Symptoms GI Symptoms None Last BM 08/03 x 2 Difficult in: None Skin Integrity/Comment: Moni Kothari scab to left wrist and left arm, reddened scar to sacrum Current %PO Good (75-100%) Estimated Nutritional Goals BEE in Kcals: Using Current wt Calories/Kcals/Kg 25-30 Kcals Calculated 3848-5124 Protein: Using Current wt Protein g/k-1.2 Protein Calculated 64-77 Fluid: ml 1600-1920ml (1ml/kcal) Nutritional Problem 1. Problem Problem altered nutrition related labs Etiology hx of DM Signs/Symptoms: glucose 214, POC 183-196 Malnutrition Alert Protein-Calorie Malnutrition N/A Is there a minimum of two criteria No selected? Query Text:Check all the applicable criteria. A minimum of two criteria are recommended for diagnosis of either severe or non-severe malnutrition. Intervention/Recommendation Comments 1. Continue with CCHO-60gm diet as ordered. 2. Monitor PO intake, wt, labs and skin integrity 3. F/U as moderate risk in 3-5 days, 08/07-08/09 Expected Outcomes/Goals Expected Outcomes/Goals 1. PO intake to meet at least 75% of nutritional needs. 2. Wt stability, skin to remain intact, labs to approach WNL.
[2017-08-05] MEDS: Aspirin 81mg Chewable Tab PO SCH ×2 (10:00→12:51)
[2017-08-05] MEDS: Ferrous Sulfate 325 MG TAB PO SCH ×5 (10:01→21:00)
[2017-08-05] MEDS: Vitamin B Complex w/Vitamin C Tab PO SCH (10:07)
--- NOTE | 2017-08-05 12:43 | General Progress Note ---
Subjective - Review of Systems Service Date: 08/05/17 Subjective: patient seen and examined. patient had thorocentesis 1.8 liters removed feeling better Objective - Results Result Diagrams: 08/05/17 05:50 08/05/17 05:50 Recent Labs: Laboratory Last Values WBC 8.3 Th/cmm (4.8-10.8) 08/05/17 05:50 RBC 3.00 Mil/cmm (3.80-5.80) L 08/05/17 05:50 Hgb 9.5 gm/dL (12-16) L 08/05/17 05:50 Hct 28.5 % (41.0-60) L 08/05/17 05:50 MCV 94.7 fl (80-99) 08/05/17 05:50 MCH 31.7 pg (27.0-31.0) H 08/05/17 05:50 MCHC Differential 33.5 pg (28.0-36.0) 08/05/17 05:50 RDW 14.1 % (11.5-20.0) 08/05/17 05:50 Plt Count 306 Th/cmm (150-400) 08/05/17 05:50 MPV 8.3 fl 08/05/17 05:50 Neutrophils % 61.8 % (40.0-80.0) 08/05/17 05:50 Lymphocytes % 21.1 % (20.0-50.0) 08/05/17 05:50 Monocytes % 11.9 % (2.0-10.0) H 08/05/17 05:50 Eosinophils % 4.6 % (0.0-5.0) 08/05/17 05:50 Basophils % 0.6 % (0.0-2.0) 08/05/17 05:50 PT 11.3 SECONDS (9.5-11.5) 08/04/17 06:10 INR 1.09 (0.5-1.4) 08/04/17 06:10 PTT (Actin FS) 30.0 SECONDS (26.0-38.0) 08/04/17 06:10 Sodium 136 mEq/L (136-145) 08/05/17 05:50 Potassium 3.7 mEq/L (3.5-5.1) 08/05/17 05:50 Chloride 103 mEq/L (98-107) 08/05/17 05:50 Carbon Dioxide 23.2 mEq/L (21.0-31.0) 08/05/17 05:50 Anion Gap 13.5 (7.0-16.0) 08/05/17 05:50 BUN 22 mg/dL (7-25) 08/05/17 05:50 Creatinine 3.4 mg/dL (0.7-1.3) H 08/05/17 05:50 Est GFR ( Amer) 23.3 ml/min (>90) 08/05/17 05:50 Est GFR (Non-Af Amer) 19.2 ml/min 08/05/17 05:50 BUN/Creatinine Ratio 6.5 08/05/17 05:50 Glucose 139 mg/dL (70-105) H 08/05/17 05:50 POC Glucose 141 MG/DL (70 - 105) H 08/05/17 06:37 Hemoglobin A1c % 5.2 % (4.0-6.0) 08/03/17 01:15 Calcium 9.0 mg/dL (8.6-10.3) 08/05/17 05:50 Magnesium 1.8 mg/dL (1.9-2.7) L 08/03/17 01:15 Total Bilirubin 0.6 mg/dL (0.3-1.0) 08/03/17 01:15 AST 22 U/L (13-39) 08/03/17 01:15 ALT 13 U/L (7-52) 08/03/17 01:15 Alkaline Phosphatase 189 U/L (34-104) H 08/03/17 01:15 Total Protein 6.4 gm/dL (6.0-8.3) 08/03/17 01:15 Albumin 2.8 gm/dL (4.2-5.5) L 08/03/17 01:15 Globulin 3.6 gm/dL 08/03/17 01:15 Albumin/Globulin Ratio 0.8 (1.0-1.8) L 08/03/17 01:15 TSH 5.22 uIU/ml (0.34-5.60) 08/03/17 01:15 Urine Source RANDOM 08/02/17 17:50 Urine Color YELLOW 08/02/17 17:50 Urine Clarity HAZY (CLEAR) 08/02/17 17:50 Urine pH 7.0 (4.6 - 8.0) 08/02/17 17:50 Ur Specific [place] 1.020 (1.005-1.030) 08/02/17 17:50 Urine Protein 100 mg/dL (NEGATIVE) H 08/02/17 17:50 Urine Glucose (UA) NEGATIVE mg/dL (NEGATIVE) 08/02/17 17:50 Urine Ketones NEGATIVE mg/dL (NEGATIVE) 08/02/17 17:50 Urine Blood LARGE (NEGATIVE) H 08/02/17 17:50 Urine Nitrate NEGATIVE (NEGATIVE) 08/02/17 17:50 Urine Bilirubin NEGATIVE (NEGATIVE) 08/02/17 17:50 Urine Urobilinogen 0.2 E.U./dL (0.2 - 1.0) 08/02/17 17:50 Ur Leukocyte Esterase TRACE (NEGATIVE) H 08/02/17 17:50 Urine RBC 25-50 /hpf (0-5) H 08/02/17 17:50 Urine WBC 0-2 /hpf (0-5) 08/02/17 17:50 Ur Epithelial Cells FEW /lpf (FEW) 08/02/17 17:50 Urine Bacteria NONE SEEN /hpf (NONE SEEN) 08/02/17 17:50 Fluid Source THROACENTHESIS 08/04/17 11:00 Fluid Color RED 08/04/17 11:00 Fluid Appearance BLOODY 08/04/17 11:00 Fluid WBC 239 /cumm 08/04/17 11:00 Fluid RBC 16469 /cumm 08/04/17 11:00 Fluid Neutrophils 5 % 08/04/17 11:00 Fluid Lymphocytes 89 % 08/04/17 11:00 Fluid Monocytes 4 % 08/04/17 11:00 Fluid Eosinophils 1 % 08/04/17 11:00 Fluid Basophils 1 % 08/04/17 11:00 Fluid Glucose 118.0 mg/dL 08/04/17 11:00 Fluid LDH 190 U/L 08/04/17 11:00 - Physical Exam Vitals and I&O: Vital Signs Temp 97.3 F 08/05/17 08:00 Pulse 88 08/05/17 10:02 Resp 20 08/05/17 08:43 BP 108/50 08/05/17 10:02 Pulse Ox 97 08/05/17 08:43 Intake & Output 08/04/17 08/05/17 08/05/17 18:59 06:59 18:59 Intake Total 50 820 Balance 50 820 Weight (lbs) 65.317 kg 65.317 kg Intake: Intake, IV Amount 50 100 Piperacillin Sodium/ 50 100 Tazobact 2.25 gm In Sodium Chloride 0.9% 50 ml @ 100 mls/hr IV Q8HR [facility] Rx#:[id number] Oral 720 Other: # Voids 2 # Bowel Movements 1 Weight Source Estimated Bedscale Active Medications: Current Medications Acetaminophen (Tylenol) 650 mg PO Q6H PRN PRN Reason: HEADACHE/TEMP ABOVE 100F Stop: 10/02/17 07:22 Albuterol Sulfate (Albuterol 2.5mg/3ml Neb Ud) 2.5 mg HHN Q4HRT PRN PRN Reason: Shortness of Breath or Wheeze Stop: 10/02/17 06:59 Aspirin (Aspirin Chewable) 81 mg PO DAILY [facility] Stop: 10/02/17 08:59 Last Admin: 08/05/17 10:00 Dose: Not Given Atorvastatin Calcium (Lipitor) 40 mg PO HS [facility] Stop: 10/02/17 20:59 Last Admin: 08/04/17 21:24 Dose: 40 mg Carvedilol (Coreg) 3.125 mg PO BID [facility] Stop: 10/02/17 08:59 Last Admin: 08/05/17 10:00 Dose: Not Given Dextrose (D50w) 50 ml IVP PRN PRN PRN Reason: BLOOD SUGAR BELOW 60 Stop: 10/02/17 07:22 Docusate Sodium (Colace) 100 mg PO BID [facility] Stop: 10/02/17 08:59 Last Admin: 08/05/17 10:10 Dose: 100 mg Famotidine (Pepcid) 20 mg PO HS [facility] Stop: 10/02/17 20:59 Last Admin: 08/04/17 21:25 Dose: 20 mg Ferrous Sulfate (Iron) 325 mg PO TID [facility] Stop: 10/02/17 08:59 Last Admin: 08/05/17 10:09 Dose: 325 mg Gabapentin (Neurontin) 300 mg PO HS [facility] Stop: 10/02/17 20:59 Last Admin: 08/04/17 21:25 Dose: 300 mg Hydralazine HCl (Apresoline) 25 mg PO TID [facility] Stop: 10/02/17 08:59 Last Admin: 08/05/17 10:01 Dose: Not Given Potassium Chloride 40 meq/Lidocaine HCl 25 mg/ Sodium Chloride 272.5 mls @ 68 mls/hr IV DAILY PRN PRN Reason: k level less than 3.2 Stop: 10/02/17 07:22 Magnesium Sulfate (Magnesium Sulfate Premix) 2 gm in 50 mls @ 25 mls/hr IV DAILY PRN PRN Reason: Magnesium level less than 1.6 Stop: 10/02/17 07:22 Piperacillin Sod/Tazobactam (Sod 2.25 gm/ Sodium Chloride) 50 mls @ 100 mls/hr IV Q8HR [facility] Stop: 10/03/17 12:59 Last Admin: 08/05/17 12:26 Dose: 100 mls/hr Insulin Aspart (Novolog Insulin Sliding Scale) 0 units SUBQ ACHS [place] PRN Reason: Protocol Stop: 10/02/17 07:29 Last Admin: 08/05/17 06:39 Dose: Not Given Ipratropium [place] (Atrovent Neb 0.5mg/2.5ml) 0.5 mg HHN Q4HRT PRN PRN Reason: Shortness of Breath or Wheeze Stop: 10/02/17 07:20 Isosorbide Dinitrate (Isordil) 10 mg PO TID [facility] Stop: 10/02/17 08:59 Last Admin: 08/05/17 10:02 Dose: Not Given Levothyroxine Sodium (Synthroid) 0.1 mg PO QDAC [facility] Stop: 10/02/17 08:59 Last Admin: 08/05/17 06:50 Dose: 0.1 mg Lorazepam (Ativan) 1 mg IVP Q4HR PRN; Protocol PRN Reason: Anxiety Stop: 10/02/17 07:22 Magnesium Oxide (Mag-Oxide) 400 mg PO BID PRN PRN Reason: Mg less than 1.9 Stop: 10/02/17 07:22 Last Admin: 08/04/17 08:42 Dose: 400 mg Miscellaneous (Clinical Monitoring) 1 ea DAILY PRN PRN Reason: RENAL Stop: 10/02/17 10:23 Miscellaneous (Zosyn Iv Per Pharmacy) 1 ea MC PRN PRN PRN Reason: PROTOCOL Stop: 10/03/17 08:27 Miscellaneous (Pharmacy To Dose) 1 ea PRN [facility] Stop: 10/05/17 15:59 Morphine Sulfate (Morphine) 1 mg IVP Q4HR PRN PRN Reason: Severe Pain Stop: 10/02/17 07:22 Nitroglycerin (Nitrostat) 0.4 mg SL TID PRN PRN Reason: Chest Pain Stop: 10/02/17 07:20 Ondansetron HCl (Zofran) 4 mg IVP Q6H PRN PRN Reason: Nausea / Vomiting Stop: 10/02/17 07:22 Potassium Chloride (Klor-Con) 40 meq PO DAILY PRN PRN Reason: k level less than 3.5 Stop: 10/02/17 07:22 Quetiapine Fumarate 100 mg/ (Quetiapine Fumarate 25 mg) 125 mg PO BID [facility] Stop: 10/02/17 09:59 Last Admin: 08/05/17 10:10 Dose: 125 mg Rivaroxaban (Xarelto) 10 mg PO DAILY [facility] Stop: 10/04/17 08:59 Last Admin: 08/05/17 10:07 Dose: 10 mg Tamsulosin HCl (Flomax) 0.4 mg PO DAILY [facility] Stop: 10/02/17 08:59 Last Admin: 08/05/17 10:09 Dose: 0.4 mg Vitamin B Complex/Vit C/Folic Acid (Vitamin B Complex W/Vitamin C) 1 tab PO DAILY [facility] Stop: 10/02/17 08:59 Last Admin: 08/05/17 10:07 Dose: 1 tab Zinc Sulfate (Zinc Sulfate) 220 mg PO DAILY [facility] Stop: 10/02/17 08:59 Last Admin: 08/05/17 10:09 Dose: 220 mg Zolpidem Tartrate (Ambien) 5 mg PO HS PRN PRN Reason: Insomnia Stop: 10/02/17 07:20 General: Cooperative, No acute distress HEENT: Atraumatic, PERRLA Neck: Supple, no JVD Cardiovascular: Regular rate, Normal S1, Normal S2 Lungs: Other (has bl rales and congestion) Abdomen: Bowel sounds, Soft Extremities: Other (has bl bka) - Procedures Procedures: Procedures Procedure Code Date ASPIRATE PLEURA W/ IMAGING 46996 08/03/17 DRAINAGE OF LEFT PLEURAL CAVITY, PERCUTANEOUS APPROACH [id number] 08/03/17 Assessment/Plan - Assessment Assessment: ESRD PLEURAL EFFUSION PNEUMONIA DM TYPE 2 PVD B/L BKA - Plan Plan: CONTINUE HD SUPPORT Nutritional Asmnt/Malnutr-PDOC - Dietary Evaluation Malnutrition Findings (Please click <Entered> for more info): Nutritional Asmnt/Malnutrition Start: 08/03/17 17: 24 Text: Status: Complete Freq: Document 08/03/17 17:24 RAFA (Rec: 08/03/17 17:41 [facility]) Nutritional Asmnt/Malnutrition Patient General Information Nutritional Screening High Risk Consult Diagnosis PNA Pertinent Medical Hx/Surgical Hx HTN, DM, dyslipidemia, PUD/ GERD, ESRD, thyroid disorder, anemia of CKD, BPH, CABG, bilateral BKA, amputations of right 3rd, 4th and 5th digits Subjective Information Consult received for BS 214 at admission and low moni score, chronic surgical site. Pt seen sleeping at time of visit. RN reported pt ate well , consumed 100% of breakfast this morning. Current Diet Order/ [facility] Pertinent Medications colace, iron, novolog, synthroid, vit B complex w/vit C, zinc Pertinent Labs 08/03 Na 134, K 3.5, Cl 101, BUN 15, Cr 2.6, glucose 214, POC 183-196, A1c 5.2, Ca 8.4 Nutritional Hx/Data Height 1.65 m Height (Calculated Centimeters) 165.1 Current Weight (lbs) 65.317 kg Weight (Calculated Kilograms) 65.3 Weight (Calculated Grams) 73799.3 [place] Body Weight 136 % [place] Body Weight 105 Body Mass Index (BMI) 23.9 GI Symptoms GI Symptoms None Last BM 08/03 x 2 Difficult in: None Skin Integrity/Comment: Moni 12 scab to left wrist and left arm, reddened scar to sacrum Current %PO Good (75-100%) Estimated Nutritional Goals BEE in Kcals: Using Current wt Calories/Kcals/Kg 25-30 Kcals Calculated 1299-4993 Protein: Using Current wt Protein g/k-1.2 Protein Calculated 64-77 Fluid: ml 1600-1920ml (1ml/kcal) Nutritional Problem 1. Problem Problem altered nutrition related labs Etiology hx of DM Signs/Symptoms: glucose 214, POC 183-196 Malnutrition Alert Protein-Calorie Malnutrition N/A Is there a minimum of two criteria No selected? Query Text:Check all the applicable criteria. A minimum of two criteria are recommended for diagnosis of either severe or non-severe malnutrition. Intervention/Recommendation Comments 1. Continue with CCHO-60gm diet as ordered. 2. Monitor PO intake, wt, labs and skin integrity 3. F/U as moderate risk in 3-5 days, 08/07-08/09 Expected Outcomes/Goals Expected Outcomes/Goals 1. PO intake to meet at least 75% of nutritional needs. 2. Wt stability, skin to remain intact, labs to approach WNL.
[2017-08-05 13:36] LABS: BF TOTAL PROTEIN 4.1 g/dL
--- NOTE | 2017-08-05 16:12 | Pathology Report ---
[id number] Collection Date: 08/04/2017 Surgeon: Dr. Robi Moore Specimen Description: Left pleural fluid for cytology Gross Description: Received in two large glass containers is approximately 1800 mL of dark red fluid. A hostess party sales representative portion of the specimen is sent for cytology processing. Microscopic Description: Examination of two cytospins and a cell block shows large numbers of red blood cells admixed with a few lymphocytes and neutrophils. There is no evidence for atypia. Diagnosis: No cytologic evidence for malignancy, left pleural fluid cytology. Comment: The specimen appears to consist of mostly blood. Clinical correlation is recommended to determine if follow-up studies are warranted. [facility]# [id number] IAIN
--- NOTE | 2017-08-06 01:43 | Progress Notes ---
DATE: 08/05/2017 FOLLOWUP NOTE A 66-year-old male who was admitted to the hospital agitation, irritability, combative at [facility]. The patient not able to be cared for at a lower level of care. Daughter at bedside. Notes that the patient has dementia. He has gotten aggressive at times and agitated at times. He was removing his catheter, yelling and screaming. She is concerned now that maybe he is too sedated. PAST PSYCHIATRIC HISTORY: Dementia, mental behaviors. SOCIAL HISTORY: The patient living in [place]. Daughter at bedside. Brother at bedside. ALLERGIES: No known drug allergies. MEDICATIONS: Noted. MENTAL STATUS EXAMINATION: Stated age. Sleeping, hard to arouse, lethargic. History of confusion, still with poor impulse control. PROVISIONAL DIAGNOSIS: Dementia with behavioral disturbances; psychosis, unspecified, and maybe also an overlying delirium. RECOMMENDATIONS AND PLAN: I will continue to monitor. Daughter concerned that the patient may be somewhat over sedated. I will lower his Seroquel dosing down a little bit to 100 mg in the morning and 125 mg at night. We will monitor and follow up. Discussed with daughter. JOB# [id number]
[2017-08-06] MEDS: Piperacillin/Tazobact 2.25 gm in 0.9% NS 50 ML IV SCH ×3 (04:52→21:12)
[2017-08-06] MEDS: Levothyroxine 0.1 Mg Tab PO SCH (06:46)
[2017-08-06] MEDS: INSULIN ASPART SLIDING SCALE 100 UNITS/ML UNIT SUBQ SCH ×4 (06:47→21:50)
[2017-08-06 06:53] LABS: % BASOPHILS 0.2 % (0.0-2.0); % LYMPHOCYTES 19.7 % (20.0-50.0); % MONOCYTES 11.3 % (2.0-10.0); % NEUTROPHILS 63.8 % (40.0-80.0); EOSINOPHILE ABSOLUTE 0.4 Th/cmm (0.1-0.4); HEMATOCRIT 26.9 % (41.0-60); HEMOGLOBIN 8.9 gm/dL (12-16); LYMPHOCYTE ABSOLUTE 1.8 Th/cmm (1.5-3.0); MEAN CELL VOLUME 95.3 fl (80-99); MEAN CORPUSCULAR HEMOGLOBIN 31.7 pg (27.0-31.0); MEAN CORPUSCULAR HGB CONC 33.2 pg (28.0-36.0); MEAN PLATELET VOLUME 8.3 fl; NEUTROPHILE ABSOLUTE 5.7 Th/cmm (1.8-8.0); PLATELET COUNT 284 Th/cmm (150-400); RED BLOOD COUNT 2.82 Mil/cmm (3.80-5.80); RED CELL DISTRIBUTION WIDTH 13.9 % (11.5-20.0); WHITE BLOOD COUNT 8.9 Th/cmm (4.8-10.8)
[2017-08-06 06:59] LABS: ANION GAP 13.5 (7.0-16.0); CALCIUM SERUM 8.7 mg/dL (8.6-10.3); CARBON DIOXIDE 24.5 mEq/L (21.0-31.0); GFR AFRICAN-AMERICAN 17.3 ml/min (>90); GFR NON AFRICAN-AMERICAN 14.3 ml/min
[2017-08-06 07:36] LABS: CREATININE - SERUM 4.4 mg/dL (0.7-1.3)
[2017-08-06] MEDS: Ferrous Sulfate 325 MG TAB PO SCH ×3 (08:36→21:11)
[2017-08-06] MEDS: Vitamin B Complex w/Vitamin C Tab PO SCH (08:36)
[2017-08-06] MEDS: Aspirin 81mg Chewable Tab PO SCH (08:36)
--- NOTE | 2017-08-06 09:02 | Diagnostic Imaging Report ---
CHEST X-RAY: AP view INDICATION: Shortness of breath COMPARISON: 08/06/2015 FINDINGS: Left apical and left basal pneumothorax is noted estimated at 30%. Small left effusion is noted. Right dialysis catheter is stable. Cardiomegaly is noted. IMPRESSION: Left apical and left basal pneumothorax estimated at 30%. Clinical correlation and follow-up recommended. Left basal atelectasis versus less likely infiltrate.
--- NOTE | 2017-08-06 09:13 | General Progress Note ---
Subjective - Review of Systems Service Date: 08/06/17 Subjective: Pt seen and eval. I've been discussin care with daughter in detail. She was able to answer many questions. 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 Pt is very non complaint with food. He still eats desserts in spite of dm-ooc. Pt more comfortable now. No fevers or chills. No cough. Has sob with exertion. Pt is status post L thoracentesis on 08/04/17, and 1.8 liters removed. Has L 30% Pneumothorax. Objective - Results Result Diagrams: 08/06/17 05:44 08/06/17 05:44 Recent Labs: Laboratory Last Values WBC 8.9 Th/cmm (4.8-10.8) 08/06/17 05:44 RBC 2.82 Mil/cmm (3.80-5.80) L 08/06/17 05:44 Hgb 8.9 gm/dL (12-16) L 08/06/17 05:44 Hct 26.9 % (41.0-60) L 08/06/17 05:44 MCV 95.3 fl (80-99) 08/06/17 05:44 MCH 31.7 pg (27.0-31.0) H 08/06/17 05:44 MCHC Differential 33.2 pg (28.0-36.0) 08/06/17 05:44 RDW 13.9 % (11.5-20.0) 08/06/17 05:44 Plt Count 284 Th/cmm (150-400) 08/06/17 05:44 MPV 8.3 fl 08/06/17 05:44 Neutrophils % 63.8 % (40.0-80.0) 08/06/17 05:44 Lymphocytes % 19.7 % (20.0-50.0) L 08/06/17 05:44 Monocytes % 11.3 % (2.0-10.0) H 08/06/17 05:44 Eosinophils % 5.0 % (0.0-5.0) 08/06/17 05:44 Basophils % 0.2 % (0.0-2.0) 08/06/17 05:44 PT 11.3 SECONDS (9.5-11.5) 08/04/17 06:10 INR 1.09 (0.5-1.4) 08/04/17 06:10 PTT (Actin FS) 30.0 SECONDS (26.0-38.0) 08/04/17 06:10 Sodium 135 mEq/L (136-145) L 08/06/17 05:44 Potassium 4.0 mEq/L (3.5-5.1) 08/06/17 05:44 Chloride 101 mEq/L (98-107) 08/06/17 05:44 Carbon Dioxide 24.5 mEq/L (21.0-31.0) 08/06/17 05:44 Anion Gap 13.5 (7.0-16.0) 08/06/17 05:44 BUN 32 mg/dL (7-25) H 08/06/17 05:44 Creatinine 4.4 mg/dL (0.7-1.3) H* 08/06/17 05:44 Est GFR ( Amer) 17.3 ml/min (>90) 08/06/17 05:44 Est GFR (Non-Af Amer) 14.3 ml/min 08/06/17 05:44 BUN/Creatinine Ratio 7.3 08/06/17 05:44 Glucose 108 mg/dL (70-105) H 08/06/17 05:44 POC Glucose 103 MG/DL (70 - 105) 08/06/17 05:52 Hemoglobin A1c % 5.2 % (4.0-6.0) 08/03/17 01:15 Calcium 8.7 mg/dL (8.6-10.3) 08/06/17 05:44 Magnesium 1.8 mg/dL (1.9-2.7) L 08/03/17 01:15 Total Bilirubin 0.6 mg/dL (0.3-1.0) 08/03/17 01:15 AST 22 U/L (13-39) 08/03/17 01:15 ALT 13 U/L (7-52) 08/03/17 01:15 Alkaline Phosphatase 189 U/L (34-104) H 08/03/17 01:15 Total Protein 6.4 gm/dL (6.0-8.3) 08/03/17 01:15 Albumin 2.8 gm/dL (4.2-5.5) L 08/03/17 01:15 Globulin 3.6 gm/dL 08/03/17 01:15 Albumin/Globulin Ratio 0.8 (1.0-1.8) L 08/03/17 01:15 TSH 5.22 uIU/ml (0.34-5.60) 08/03/17 01:15 Urine Source RANDOM 08/02/17 17:50 Urine Color YELLOW 08/02/17 17:50 Urine Clarity HAZY (CLEAR) 08/02/17 17:50 Urine pH 7.0 (4.6 - 8.0) 08/02/17 17:50 Ur Specific [place] 1.020 (1.005-1.030) 08/02/17 17:50 Urine Protein 100 mg/dL (NEGATIVE) H 08/02/17 17:50 Urine Glucose (UA) NEGATIVE mg/dL (NEGATIVE) 08/02/17 17:50 Urine Ketones NEGATIVE mg/dL (NEGATIVE) 08/02/17 17:50 Urine Blood LARGE (NEGATIVE) H 08/02/17 17:50 Urine Nitrate NEGATIVE (NEGATIVE) 08/02/17 17:50 Urine Bilirubin NEGATIVE (NEGATIVE) 08/02/17 17:50 Urine Urobilinogen 0.2 E.U./dL (0.2 - 1.0) 08/02/17 17:50 Ur Leukocyte Esterase TRACE (NEGATIVE) H 08/02/17 17:50 Urine RBC 25-50 /hpf (0-5) H 08/02/17 17:50 Urine WBC 0-2 /hpf (0-5) 08/02/17 17:50 Ur Epithelial Cells FEW /lpf (FEW) 08/02/17 17:50 Urine Bacteria NONE SEEN /hpf (NONE SEEN) 08/02/17 17:50 Fluid Source THROACENTHESIS 08/04/17 11:00 Fluid Color RED 08/04/17 11:00 Fluid Appearance BLOODY 08/04/17 11:00 Fluid WBC 239 /cumm 08/04/17 11:00 Fluid RBC 38612 /cumm 08/04/17 11:00 Fluid Neutrophils 5 % 08/04/17 11:00 Fluid Lymphocytes 89 % 08/04/17 11:00 Fluid Monocytes 4 % 08/04/17 11:00 Fluid Eosinophils 1 % 08/04/17 11:00 Fluid Basophils 1 % 08/04/17 11:00 Fluid Glucose 118.0 mg/dL 08/04/17 11:00 Fluid Total Protein 4.1 g/dL 08/04/17 11:00 Fluid LDH 190 U/L 08/04/17 11:00 - Physical Exam Vitals and I&O: Vital Signs Temp 97.6 F 08/06/17 08:19 Pulse 81 08/06/17 08:49 Resp 22 08/06/17 08:50 BP 100/47 08/06/17 08:35 Pulse Ox 98 08/06/17 08:49 Intake & Output 08/05/17 08/06/17 08/06/17 18:59 06:59 18:59 Intake Total 250 50 Output Total 0 Balance 250 50 Weight (lbs) 65.317 kg Intake: Intake, IV Amount 50 50 Piperacillin Sodium/ 50 50 Tazobact 2.25 gm In Sodium Chloride 0.9% 50 ml @ 100 mls/hr IV Q8HR [facility] Rx#:[id number] Oral 200 Output: Urine 0 Other: # Bowel Movements 0 Weight Source Bedscale Active Medications: Current Medications Acetaminophen (Tylenol) 650 mg PO Q6H PRN PRN Reason: HEADACHE/TEMP ABOVE 100F Stop: 10/02/17 07:22 Albuterol Sulfate (Albuterol 2.5mg/3ml Neb Ud) 2.5 mg HHN Q4HRT PRN PRN Reason: Shortness of Breath or Wheeze Stop: 10/02/17 06:59 Aspirin (Aspirin Chewable) 81 mg PO DAILY [facility] Stop: 10/02/17 08:59 Last Admin: 08/06/17 08:36 Dose: 81 mg Atorvastatin Calcium (Lipitor) 40 mg PO HS [facility] Stop: 10/02/17 20:59 Last Admin: 08/05/17 21:01 Dose: 40 mg Carvedilol (Coreg) 3.125 mg PO BID [facility] Stop: 10/02/17 08:59 Last Admin: 08/06/17 08:35 Dose: Not Given Dextrose (D50w) 50 ml IVP PRN PRN PRN Reason: BLOOD SUGAR BELOW 60 Stop: 10/02/17 07:22 Docusate Sodium (Colace) 100 mg PO BID [facility] Stop: 10/02/17 08:59 Last Admin: 08/06/17 08:36 Dose: 100 mg Famotidine (Pepcid) 20 mg PO [facility] Stop: 10/02/17 20:59 Last Admin: 08/05/17 21:02 Dose: 20 mg Ferrous Sulfate (Iron) 325 mg PO TID [facility] Stop: 10/02/17 08:59 Last Admin: 08/06/17 08:36 Dose: 325 mg Gabapentin (Neurontin) 300 mg PO [facility] Stop: 10/02/17 20:59 Last Admin: 08/05/17 21:01 Dose: 300 mg Hydralazine HCl (Apresoline) 25 mg PO TID [facility] Stop: 10/02/17 08:59 Last Admin: 08/06/17 08:35 Dose: Not Given Potassium Chloride 40 meq/Lidocaine HCl 25 mg/ Sodium Chloride 272.5 mls @ 68 mls/hr IV DAILY PRN PRN Reason: k level less than 3.2 Stop: 10/02/17 07:22 Magnesium Sulfate (Magnesium Sulfate Premix) 2 gm in 50 mls @ 25 mls/hr IV DAILY PRN PRN Reason: Magnesium level less than 1.6 Stop: 10/02/17 07:22 Piperacillin Sod/Tazobactam (Sod 2.25 gm/ Sodium Chloride) 50 mls @ 100 mls/hr IV Q8HR [facility] Stop: 10/03/17 12:59 Last Admin: 08/06/17 04:52 Dose: 100 mls/hr Insulin Aspart (Novolog Insulin Sliding Scale) 0 units SUBQ ACHS [facility] PRN Reason: Protocol Stop: 10/02/17 07:29 Last Admin: 08/06/17 06:47 Dose: Not Given Ipratropium [place] (Atrovent Neb 0.5mg/2.5ml) 0.5 mg HHN Q4HRT PRN PRN Reason: Shortness of Breath or Wheeze Stop: 10/02/17 07:20 Isosorbide Dinitrate (Isordil) 10 mg PO TID [facility] Stop: 10/02/17 08:59 Last Admin: 08/06/17 08:35 Dose: Not Given Levothyroxine Sodium (Synthroid) 0.1 mg PO QDAC [facility] Stop: 10/02/17 08:59 Last Admin: 08/06/17 06:46 Dose: 0.1 mg Lorazepam (Ativan) 1 mg IVP Q4HR PRN; Protocol PRN Reason: Anxiety Stop: 10/02/17 07:22 Magnesium Oxide (Mag-Oxide) 400 mg PO BID PRN PRN Reason: Mg less than 1.9 Stop: 10/02/17 07:22 Last Admin: 08/04/17 08:42 Dose: 400 mg Miscellaneous (Clinical Monitoring) 1 [facility] DAILY PRN PRN Reason: RENAL Stop: 10/02/17 10:23 Miscellaneous (Zosyn Iv Per Pharmacy) 1 [facility] PRN PRN PRN Reason: PROTOCOL Stop: 10/03/17 08:27 Miscellaneous (Pharmacy To Dose) 1 [facility] PRN [facility] Stop: 10/05/17 15:59 Morphine Sulfate (Morphine) 1 mg IVP Q4HR PRN PRN Reason: Severe Pain Stop: 10/02/17 07:22 Last Admin: 08/06/17 03:24 Dose: 1 mg Nitroglycerin (Nitrostat) 0.4 mg SL TID PRN PRN Reason: Chest Pain Stop: 10/02/17 07:20 Ondansetron HCl (Zofran) 4 mg IVP Q6H PRN PRN Reason: Nausea / Vomiting Stop: 10/02/17 07:22 Potassium Chloride (Klor-Con) 40 meq PO DAILY PRN PRN Reason: k level less than 3.5 Stop: 10/02/17 07:22 Quetiapine Fumarate (Seroquel) 100 mg PO DAILY [facility] Stop: 10/05/17 08:59 Last Admin: 08/06/17 08:36 Dose: 100 mg Quetiapine Fumarate 100 mg/ (Quetiapine Fumarate 25 mg) 125 mg PO [facility] Stop: 10/04/17 20:59 Last Admin: 08/05/17 21:00 Dose: 125 mg Rivaroxaban (Xarelto) 10 mg PO DAILY [facility] Stop: 10/04/17 08:59 Last Admin: 08/06/17 08:36 Dose: 10 mg Tamsulosin HCl (Flomax) 0.4 mg PO DAILY [facility] Stop: 10/02/17 08:59 Last Admin: 08/06/17 08:36 Dose: 0.4 mg Vitamin B Complex/Vit C/Folic Acid (Vitamin B Complex W/Vitamin C) 1 tab PO DAILY [facility] Stop: 10/02/17 08:59 Last Admin: 08/06/17 08:36 Dose: 1 tab Zinc Sulfate (Zinc Sulfate) 220 mg PO DAILY [facility] Stop: 10/02/17 08:59 Last Admin: 08/06/17 08:36 Dose: 220 mg Zolpidem Tartrate (Ambien) 5 mg PO HS PRN PRN Reason: Insomnia Stop: 10/02/17 07:20 General: Cooperative, No acute distress HEENT: Atraumatic, PERRLA Neck: Supple, no JVD Cardiovascular: Regular rate, Normal S1, Normal S2 Lungs: Other (has bl rales and congestion) Abdomen: Bowel sounds, Soft Extremities: Other (has bl bka) - Procedures Procedures: Procedures Procedure Code Date ASPIRATE PLEURA W/ IMAGING 62651 08/03/17 DRAINAGE OF LEFT PLEURAL CAVITY, PERCUTANEOUS APPROACH [id number] 08/03/17 Assessment/Plan - Assessment Assessment: Asp PNA ME VMN Anemia of Ch ill Psychosis Mod malnut CAD with hx of quad bypass sx in 2013 Dm-OOC BL BKA PAD Hyponatremia Diabetic Nephropathy and Neuropathy HTN-OOC L pleural effusion 30% L Pneumothorax - Plan Plan: Pt is scheduled for US guided thoracentesis of L pleural effusion. Dr. Hernandez and Dr. Zimmerman have seen the pt. Scheduled for dialysis today. On IV zosyn. Met with daughter. Discussed diabetic control. Status post L thoracentesis with 1.8 liters removed. Has L pneumothorax. Dr. Saez and Dr. Hernandez following. Nutritional Asmnt/Malnutr-PDOC - Dietary Evaluation Malnutrition Findings (Please click <Entered> for more info): Nutritional Asmnt/Malnutrition Start: 08/03/17 17: 24 Text: Status: Complete Freq: Document 08/03/17 17:24 LCHENG (Rec: 08/03/17 17:41 RAFAG [id number]) Nutritional Asmnt/Malnutrition Patient General Information Nutritional Screening High Risk Consult Diagnosis PNA Pertinent Medical Hx/Surgical Hx HTN, DM, dyslipidemia, PUD/ GERD, ESRD, thyroid disorder, anemia of CKD, BPH, CABG, bilateral BKA, amputations of right 3rd, 4th and 5th digits Subjective Information Consult received for BS 214 at admission and low moni score, chronic surgical site. Pt seen sleeping at time of visit. RN reported pt ate well , consumed 100% of breakfast this morning. Current Diet [facility]/ [facility] Pertinent Medications colace, iron, novolog, synthroid, vit B complex w/vit C, zinc Pertinent Labs 08/03 Na 134, K 3.5, Cl 101, BUN 15, Cr 2.6, glucose 214, POC 183-196, A1c 5.2, Ca 8.4 Nutritional Hx/Data Height 1.65 m Height (Calculated Centimeters) 165.1 Current Weight (lbs) 65.317 kg Weight (Calculated Kilograms) 65.3 Weight (Calculated Grams) 92102.3 [place] Body Weight 136 % [place]bee Body Weight 105 Body Mass Index (BMI) 23.9 GI Symptoms GI Symptoms None Last BM 08/03 x 2 Difficult in: None Skin Integrity/Comment: Moni 12 scab to left wrist and left arm, reddened scar to sacrum Current %PO Good (75-100%) Estimated Nutritional Goals BEE in Kcals: Using Current wt Calories/Kcals/Kg 25-30 Kcals Calculated 7066-2899 Protein: Using Current wt Protein g/k-1.2 Protein Calculated 64-77 Fluid: ml 1600-1920ml (1ml/kcal) Nutritional Problem 1. Problem Problem altered nutrition related labs Etiology hx of DM Signs/Symptoms: glucose 214, POC 183-196 Malnutrition Alert Protein-Calorie Malnutrition N/A Is there a minimum of two criteria No selected? Query Text:Check all the applicable criteria. A minimum of two criteria are recommended for diagnosis of either severe or non-severe malnutrition. Intervention/Recommendation Comments 1. Continue with [facility] diet as ordered. 2. Monitor PO intake, wt, labs and skin integrity 3. F/U as moderate risk in 3-5 days, 08/07-08/09 Expected Outcomes/Goals Expected Outcomes/Goals 1. PO intake to meet at least 75% of nutritional needs. 2. Wt stability, skin to remain intact, labs to approach WNL.
--- NOTE | 2017-08-06 14:35 | General Progress Note ---
Subjective - Review of Systems Service Date: 08/06/17 Subjective: patient seen and examined. Objective - Results Result Diagrams: 08/06/17 05:44 08/06/17 05:44 Recent Labs: Laboratory Last Values WBC 8.9 Th/cmm (4.8-10.8) 08/06/17 05:44 RBC 2.82 Mil/cmm (3.80-5.80) L 08/06/17 05:44 Hgb 8.9 gm/dL (12-16) L 08/06/17 05:44 Hct 26.9 % (41.0-60) L 08/06/17 05:44 MCV 95.3 fl (80-99) 08/06/17 05:44 MCH 31.7 pg (27.0-31.0) H 08/06/17 05:44 MCHC Differential 33.2 pg (28.0-36.0) 08/06/17 05:44 RDW 13.9 % (11.5-20.0) 08/06/17 05:44 Plt Count 284 Th/cmm (150-400) 08/06/17 05:44 MPV 8.3 fl 08/06/17 05:44 Neutrophils % 63.8 % (40.0-80.0) 08/06/17 05:44 Lymphocytes % 19.7 % (20.0-50.0) L 08/06/17 05:44 Monocytes % 11.3 % (2.0-10.0) H 08/06/17 05:44 Eosinophils % 5.0 % (0.0-5.0) 08/06/17 05:44 Basophils % 0.2 % (0.0-2.0) 08/06/17 05:44 PT 11.3 SECONDS (9.5-11.5) 08/04/17 06:10 INR 1.09 (0.5-1.4) 08/04/17 06:10 PTT (Actin FS) 30.0 SECONDS (26.0-38.0) 08/04/17 06:10 Sodium 135 mEq/L (136-145) L 08/06/17 05:44 Potassium 4.0 mEq/L (3.5-5.1) 08/06/17 05:44 Chloride 101 mEq/L (98-107) 08/06/17 05:44 Carbon Dioxide 24.5 mEq/L (21.0-31.0) 08/06/17 05:44 Anion Gap 13.5 (7.0-16.0) 08/06/17 05:44 BUN 32 mg/dL (7-25) H 08/06/17 05:44 Creatinine 4.4 mg/dL (0.7-1.3) H* 08/06/17 05:44 Est GFR ( Amer) 17.3 ml/min (>90) 08/06/17 05:44 Est GFR (Non-Af Amer) 14.3 ml/min 08/06/17 05:44 BUN/Creatinine Ratio 7.3 08/06/17 05:44 Glucose 108 mg/dL (70-105) H 08/06/17 05:44 POC Glucose 175 MG/DL (70 - 105) H 08/06/17 11:27 Hemoglobin A1c % 5.2 % (4.0-6.0) 08/03/17 01:15 Calcium 8.7 mg/dL (8.6-10.3) 08/06/17 05:44 Magnesium 1.8 mg/dL (1.9-2.7) L 08/03/17 01:15 Total Bilirubin 0.6 mg/dL (0.3-1.0) 08/03/17 01:15 AST 22 U/L (13-39) 08/03/17 01:15 ALT 13 U/L (7-52) 08/03/17 01:15 Alkaline Phosphatase 189 U/L (34-104) H 08/03/17 01:15 Total Protein 6.4 gm/dL (6.0-8.3) 08/03/17 01:15 Albumin 2.8 gm/dL (4.2-5.5) L 08/03/17 01:15 Globulin 3.6 gm/dL 08/03/17 01:15 Albumin/Globulin Ratio 0.8 (1.0-1.8) L 08/03/17 01:15 TSH 5.22 uIU/ml (0.34-5.60) 08/03/17 01:15 Urine Source RANDOM 08/02/17 17:50 Urine Color YELLOW 08/02/17 17:50 Urine Clarity HAZY (CLEAR) 08/02/17 17:50 Urine pH 7.0 (4.6 - 8.0) 08/02/17 17:50 Ur Specific [place] 1.020 (1.005-1.030) 08/02/17 17:50 Urine Protein 100 mg/dL (NEGATIVE) H 08/02/17 17:50 Urine Glucose (UA) NEGATIVE mg/dL (NEGATIVE) 08/02/17 17:50 Urine Ketones NEGATIVE mg/dL (NEGATIVE) 08/02/17 17:50 Urine Blood LARGE (NEGATIVE) H 08/02/17 17:50 Urine Nitrate NEGATIVE (NEGATIVE) 08/02/17 17:50 Urine Bilirubin NEGATIVE (NEGATIVE) 08/02/17 17:50 Urine Urobilinogen 0.2 E.U./dL (0.2 - 1.0) 08/02/17 17:50 Ur Leukocyte Esterase TRACE (NEGATIVE) H 08/02/17 17:50 Urine RBC 25-50 /hpf (0-5) H 08/02/17 17:50 Urine WBC 0-2 /hpf (0-5) 08/02/17 17:50 Ur Epithelial Cells FEW /lpf (FEW) 08/02/17 17:50 Urine Bacteria NONE SEEN /hpf (NONE SEEN) 08/02/17 17:50 Fluid Source THROACENTHESIS 08/04/17 11:00 Fluid Color RED 08/04/17 11:00 Fluid Appearance BLOODY 08/04/17 11:00 Fluid WBC 239 /cumm 08/04/17 11:00 Fluid RBC 86002 /cumm 08/04/17 11:00 Fluid Neutrophils 5 % 08/04/17 11:00 Fluid Lymphocytes 89 % 08/04/17 11:00 Fluid Monocytes 4 % 08/04/17 11:00 Fluid Eosinophils 1 % 08/04/17 11:00 Fluid Basophils 1 % 08/04/17 11:00 Fluid Glucose 118.0 mg/dL 08/04/17 11:00 Fluid Total Protein 4.1 g/dL 08/04/17 11:00 Fluid LDH 190 U/L 08/04/17 11:00 - Physical Exam Vitals and I&O: Vital Signs Temp 97.6 F 08/06/17 12:00 Pulse 87 08/06/17 13:42 Resp 18 08/06/17 12:00 BP 113/85 08/06/17 13:42 Pulse Ox 99 08/06/17 12:00 Intake & Output 08/05/17 08/06/17 08/06/17 18:59 06:59 18:59 Intake Total 250 100 50 Output Total 0 Balance 250 100 50 Weight (lbs) 65.317 kg Intake: Intake, IV Amount 50 100 50 Piperacillin Sodium/ 50 100 50 Tazobact 2.25 gm In Sodium Chloride 0.9% 50 ml @ 100 mls/hr IV Q8HR [facility] Rx#:[id number] Oral 200 Output: Urine 0 Other: # Bowel Movements 0 Weight Source Bedscale Active Medications: Current Medications Acetaminophen (Tylenol) 650 mg PO Q6H PRN PRN Reason: HEADACHE/TEMP ABOVE 100F Stop: 10/02/17 07:22 Albuterol Sulfate (Albuterol 2.5mg/3ml Neb Ud) 2.5 mg HHN Q4HRT PRN PRN Reason: Shortness of Breath or Wheeze Stop: 10/02/17 06:59 Aspirin (Aspirin Chewable) 81 mg PO DAILY [facility] Stop: 10/02/17 08:59 Last Admin: 08/06/17 08:36 Dose: 81 mg Atorvastatin Calcium (Lipitor) 40 mg PO HS [facility] Stop: 10/02/17 20:59 Last Admin: 08/05/17 21:01 Dose: 40 mg Carvedilol (Coreg) 3.125 mg PO BID [facility] Stop: 10/02/17 08:59 Last Admin: 08/06/17 08:35 Dose: Not Given Dextrose (D50w) 50 ml IVP PRN PRN PRN Reason: BLOOD SUGAR BELOW 60 Stop: 10/02/17 07:22 Docusate Sodium (Colace) 100 mg PO BID [facility] Stop: 10/02/17 08:59 Last Admin: 08/06/17 08:36 Dose: 100 mg Famotidine (Pepcid) 20 mg PO HS [facility] Stop: 10/02/17 20:59 Last Admin: 08/05/17 21:02 Dose: 20 mg Ferrous Sulfate (Iron) 325 mg PO TID [facility] Stop: 10/02/17 08:59 Last Admin: 08/06/17 13:39 Dose: 325 mg Gabapentin (Neurontin) 300 mg PO HS [facility] Stop: 10/02/17 20:59 Last Admin: 08/05/17 21:01 Dose: 300 mg Hydralazine HCl (Apresoline) 25 mg PO TID [facility] Stop: 10/02/17 08:59 Last Admin: 08/06/17 13:41 Dose: Not Given Potassium Chloride 40 meq/Lidocaine HCl 25 mg/ Sodium Chloride 272.5 mls @ 68 mls/hr IV DAILY PRN PRN Reason: k level less than 3.2 Stop: 10/02/17 07:22 Magnesium Sulfate (Magnesium Sulfate Premix) 2 gm in 50 mls @ 25 mls/hr IV DAILY PRN PRN Reason: Magnesium level less than 1.6 Stop: 10/02/17 07:22 Piperacillin Sod/Tazobactam (Sod 2.25 gm/ Sodium Chloride) 50 mls @ 100 mls/hr IV Q8HR [facility] Stop: 10/03/17 12:59 Last Infusion: 08/06/17 12:42 Dose: Infused Insulin Aspart (Novolog Insulin Sliding Scale) 0 units SUBQ ACHS [facility] PRN Reason: Protocol Stop: 10/02/17 07:29 Last Admin: 08/06/17 11:32 Dose: 2 units Ipratropium [place] (Atrovent Neb 0.5mg/2.5ml) 0.5 mg HHN Q4HRT PRN PRN Reason: Shortness of Breath or Wheeze Stop: 10/02/17 07:20 Isosorbide Dinitrate (Isordil) 10 mg PO TID [facility] Stop: 10/02/17 08:59 Last Admin: 08/06/17 13:42 Dose: Not Given Levothyroxine Sodium (Synthroid) 0.1 mg PO QDAC [facility] Stop: 10/02/17 08:59 Last Admin: 08/06/17 06:46 Dose: 0.1 mg Lorazepam (Ativan) 1 mg IVP Q4HR PRN; Protocol PRN Reason: Anxiety Stop: 10/02/17 07:22 Magnesium Oxide (Mag-Oxide) 400 mg PO BID PRN PRN Reason: Mg less than 1.9 Stop: 10/02/17 07:22 Last Admin: 08/04/17 08:42 Dose: 400 mg Miscellaneous (Clinical Monitoring) 1 [facility] DAILY PRN PRN Reason: RENAL Stop: 10/02/17 10:23 Miscellaneous (Zosyn Iv Per Pharmacy) 1 [facility] PRN PRN PRN Reason: PROTOCOL Stop: 10/03/17 08:27 Miscellaneous (Pharmacy To Dose) 1 [facility] PRN [facility] Stop: 10/05/17 15:59 Morphine Sulfate (Morphine) 1 mg IVP Q4HR PRN PRN Reason: Severe Pain Stop: 10/02/17 07:22 Last Admin: 08/06/17 03:24 Dose: 1 mg Nitroglycerin (Nitrostat) 0.4 mg SL TID PRN PRN Reason: Chest Pain Stop: 10/02/17 07:20 Ondansetron HCl (Zofran) 4 mg IVP Q6H PRN PRN Reason: Nausea / Vomiting Stop: 10/02/17 07:22 Potassium Chloride (Klor-Con) 40 meq PO DAILY PRN PRN Reason: k level less than 3.5 Stop: 10/02/17 07:22 Quetiapine Fumarate (Seroquel) 100 mg PO DAILY [facility] Stop: 10/05/17 08:59 Last Admin: 08/06/17 08:36 Dose: 100 mg Quetiapine Fumarate 100 mg/ (Quetiapine Fumarate 25 mg) 125 mg PO HS [facility] Stop: 10/04/17 20:59 Last Admin: 08/05/17 21:00 Dose: 125 mg Rivaroxaban (Xarelto) 10 mg PO DAILY [facility] Stop: 10/04/17 08:59 Last Admin: 08/06/17 08:36 Dose: 10 mg Tamsulosin HCl (Flomax) 0.4 mg PO DAILY [facility] Stop: 10/02/17 08:59 Last Admin: 08/06/17 08:36 Dose: 0.4 mg Vitamin B Complex/Vit C/Folic Acid (Vitamin B Complex W/Vitamin C) 1 tab PO DAILY [facility] Stop: 10/02/17 08:59 Last Admin: 08/06/17 08:36 Dose: 1 tab Zinc Sulfate (Zinc Sulfate) 220 mg PO DAILY [facility] Stop: 10/02/17 08:59 Last Admin: 08/06/17 08:36 Dose: 220 mg Zolpidem Tartrate (Ambien) 5 mg PO HS PRN PRN Reason: Insomnia Stop: 10/02/17 07:20 General: Cooperative, No acute distress HEENT: Atraumatic, PERRLA Neck: Supple, no JVD Cardiovascular: Regular rate, Normal S1, Normal S2 Lungs: Other (has bl rales and congestion) Abdomen: Bowel sounds, Soft Extremities: Other (has bl bka) - Procedures Procedures: Procedures Procedure Code Date ASPIRATE PLEURA W/ IMAGING 05365 08/03/17 DRAINAGE OF LEFT PLEURAL CAVITY, PERCUTANEOUS APPROACH [id number] 08/03/17 Assessment/Plan - Assessment Assessment: ESRD PLEURAL EFFUSION PNEUMONIA DM TYPE 2 PVD B/L BKA - Plan Plan: CONTINUE HD SUPPORT Nutritional Asmnt/Malnutr-PDOC - Dietary Evaluation Malnutrition Findings (Please click <Entered> for more info): Nutritional Asmnt/Malnutrition Start: 08/03/17 17: 24 Text: Status: Complete Freq: Document 08/03/17 17:24 RAFA (Rec: 08/03/17 17:41 [id number] Nutritional Asmnt/Malnutrition Patient General Information Nutritional Screening High Risk Consult Diagnosis PNA Pertinent Medical Hx/Surgical Hx HTN, DM, dyslipidemia, PUD/ GERD, ESRD, thyroid disorder, anemia of CKD, BPH, CABG, bilateral BKA, amputations of right 3rd, 4th and 5th digits Subjective Information Consult received for BS 214 at admission and low luis eduardo score, chronic surgical site. Pt seen sleeping at time of visit. RN reported pt ate well , consumed 100% of breakfast this morning. Current Diet [facility]/ [facility] Pertinent Medications colace, iron, novolog, synthroid, vit B complex w/vit C, zinc Pertinent Labs 08/03 Na 134, K 3.5, Cl 101, BUN 15, Cr 2.6, glucose 214, POC 183-196, A1c 5.2, Ca 8.4 Nutritional Hx/Data Height 1.65 m Height (Calculated Centimeters) 165.1 Current Weight (lbs) 65.317 kg Weight (Calculated Kilograms) 65.3 Weight (Calculated Grams) 70062.3 Colver Body Weight 136 % Colver Body Weight 105 Body Mass Index (BMI) 23.9 GI Symptoms GI Symptoms None Last BM 08/03 x 2 Difficult in: None Skin Integrity/Comment: Luis Eduardo 12 scab to left wrist and left arm, reddened scar to sacrum Current %PO Good (75-100%) Estimated Nutritional Goals BEE in Kcals: Using Current wt Calories/Kcals/Kg 25-30 Kcals Calculated 0910-7058 Protein: Using Current wt Protein g/k-1.2 Protein Calculated 64-77 Fluid: ml 1600-1920ml (1ml/kcal) Nutritional Problem 1. Problem Problem altered nutrition related labs Etiology hx of DM Signs/Symptoms: glucose 214, POC 183-196 Malnutrition Alert Protein-Calorie Malnutrition N/A Is there a minimum of two criteria No selected? Query Text:Check all the applicable criteria. A minimum of two criteria are recommended for diagnosis of either severe or non-severe malnutrition. Intervention/Recommendation Comments 1. Continue with CCHO-60gm diet as ordered. 2. Monitor PO intake, wt, labs and skin integrity 3. F/U as moderate risk in 3-5 days, 08/07-08/09 Expected Outcomes/Goals Expected Outcomes/Goals 1. PO intake to meet at least 75% of nutritional needs. 2. Wt stability, skin to remain intact, labs to approach WNL.
--- NOTE | 2017-08-06 16:09 | Consultation ---
DATE OF CONSULTATION: 08/04/2017 SURGICAL CONSULTATION REFERRING PHYSICIAN: Dr. Gaston. REASON FOR CONSULTATION: Left pneumothorax. Thank you for referring this patient to me. HISTORY OF PRESENT ILLNESS: This is a 66-year-old male who was admitted through Emergency Room because of increased agitation. He was also found to be short of breath. He has had hemodialysis catheter in the right subclavian location. A chest x-ray showed a whiteout of the left chest and a CT scan was done. Subsequent to that, he underwent thoracentesis and 1.8 liters of fluid was removed. He developed a 25% pneumothorax. The patient has a psychosis and on examination, he refuses to be touched in the chest area. He is not short of breath and oxygen saturation on room air is 100%. RECOMMENDATIONS: Suggest followup chest x-ray and if necessary, we will insert chest tube. We will follow with you. [facility]# [id number]
[2017-08-07] MEDS: Piperacillin/Tazobact 2.25 gm in 0.9% NS 50 ML IV SCH ×3 (05:58→22:00)
[2017-08-07 06:45] LABS: % BASOPHILS 0.8 % (0.0-2.0); % EOSINOPHILS 4.3 % (0.0-5.0); % LYMPHOCYTES 23.9 % (20.0-50.0); % MONOCYTES 12.1 % (2.0-10.0); % NEUTROPHILS 58.9 % (40.0-80.0); BASOPHILE ABSOLUTE 0.1 Th/cumm (0-0.2); EOSINOPHILE ABSOLUTE 0.4 Th/cmm (0.1-0.4); HEMOGLOBIN 8.8 gm/dL (12-16); MEAN PLATELET VOLUME 8.6 fl; NEUTROPHILE ABSOLUTE 4.9 Th/cmm (1.8-8.0); PLATELET COUNT 271 Th/cmm (150-400); RED BLOOD COUNT 2.76 Mil/cmm (3.80-5.80); RED CELL DISTRIBUTION WIDTH 14.1 % (11.5-20.0); WHITE BLOOD COUNT 8.4 Th/cmm (4.8-10.8)
[2017-08-07 07:04] LABS: ANION GAP 12.6 (7.0-16.0); CALCIUM SERUM 8.7 mg/dL (8.6-10.3); CARBON DIOXIDE 25.1 mEq/L (21.0-31.0); CREATININE - SERUM 3.8 mg/dL (0.7-1.3); GFR AFRICAN-AMERICAN 20.5 ml/min (>90); GFR NON AFRICAN-AMERICAN 16.9 ml/min; POTASSIUM SERUM 3.7 mEq/L (3.5-5.1)
[2017-08-07] MEDS: Levothyroxine 0.1 Mg Tab PO SCH (07:37)
[2017-08-07] MEDS: INSULIN ASPART SLIDING SCALE 100 UNITS/ML UNIT SUBQ SCH ×3 (07:37→17:11)
[2017-08-07] MEDS: Ferrous Sulfate 325 MG TAB PO SCH ×3 (08:30→22:13)
[2017-08-07] MEDS: Aspirin 81mg Chewable Tab PO SCH (08:30)
[2017-08-07] MEDS: Vitamin B Complex w/Vitamin C Tab PO SCH (08:30)
--- NOTE | 2017-08-07 09:44 | General Progress Note ---
Subjective - Review of Systems Service Date: 08/07/17 Subjective: Pt seen and eval. I've been discussing care with daughter in detail. She was able to answer many questions. 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 Pt is very non complaint with food. He still eats desserts in spite of dm-ooc. Pt more comfortable now. No fevers or chills. No cough. Has sob with exertion. Pt is status post L thoracentesis on 08/04/17, and 1.8 liters removed. Has L 30% Pneumothorax. Objective - Results Result Diagrams: 08/07/17 05:39 08/07/17 05:39 Recent Labs: Laboratory Last Values WBC 8.4 Th/cmm (4.8-10.8) 08/07/17 05:39 RBC 2.76 Mil/cmm (3.80-5.80) L 08/07/17 05:39 Hgb 8.8 gm/dL (12-16) L 08/07/17 05:39 Hct 26.0 % (41.0-60) L 08/07/17 05:39 MCV 94.0 fl (80-99) 08/07/17 05:39 MCH 32.0 pg (27.0-31.0) H 08/07/17 05:39 MCHC Differential 34.0 pg (28.0-36.0) 08/07/17 05:39 RDW 14.1 % (11.5-20.0) 08/07/17 05:39 Plt Count 271 Th/cmm (150-400) 08/07/17 05:39 MPV 8.6 fl 08/07/17 05:39 Neutrophils % 58.9 % (40.0-80.0) 08/07/17 05:39 Lymphocytes % 23.9 % (20.0-50.0) 08/07/17 05:39 Monocytes % 12.1 % (2.0-10.0) H 08/07/17 05:39 Eosinophils % 4.3 % (0.0-5.0) 08/07/17 05:39 Basophils % 0.8 % (0.0-2.0) 08/07/17 05:39 PT 11.3 SECONDS (9.5-11.5) 08/04/17 06:10 INR 1.09 (0.5-1.4) 08/04/17 06:10 PTT (Actin FS) 30.0 SECONDS (26.0-38.0) 08/04/17 06:10 Sodium 135 mEq/L (136-145) L 08/07/17 05:39 Potassium 3.7 mEq/L (3.5-5.1) 08/07/17 05:39 Chloride 101 mEq/L (98-107) 08/07/17 05:39 Carbon Dioxide 25.1 mEq/L (21.0-31.0) 08/07/17 05:39 Anion Gap 12.6 (7.0-16.0) 08/07/17 05:39 BUN 27 mg/dL (7-25) H 08/07/17 05:39 Creatinine 3.8 mg/dL (0.7-1.3) H 08/07/17 05:39 Est GFR ( Amer) 20.5 ml/min (>90) 08/07/17 05:39 Est GFR (Non-Af Amer) 16.9 ml/min 08/07/17 05:39 BUN/Creatinine Ratio 7.1 08/07/17 05:39 Glucose 150 mg/dL (70-105) H 08/07/17 05:39 POC Glucose 152 MG/DL (70 - 105) H 08/07/17 06:42 Hemoglobin A1c % 5.2 % (4.0-6.0) 08/03/17 01:15 Calcium 8.7 mg/dL (8.6-10.3) 08/07/17 05:39 Magnesium 1.8 mg/dL (1.9-2.7) L 08/03/17 01:15 Total Bilirubin 0.6 mg/dL (0.3-1.0) 08/03/17 01:15 AST 22 U/L (13-39) 08/03/17 01:15 ALT 13 U/L (7-52) 08/03/17 01:15 Alkaline Phosphatase 189 U/L (34-104) H 08/03/17 01:15 Total Protein 6.4 gm/dL (6.0-8.3) 08/03/17 01:15 Albumin 2.8 gm/dL (4.2-5.5) L 08/03/17 01:15 Globulin 3.6 gm/dL 08/03/17 01:15 Albumin/Globulin Ratio 0.8 (1.0-1.8) L 08/03/17 01:15 TSH 5.22 uIU/ml (0.34-5.60) 08/03/17 01:15 Urine Source RANDOM 08/02/17 17:50 Urine Color YELLOW 08/02/17 17:50 Urine Clarity HAZY (CLEAR) 08/02/17 17:50 Urine pH 7.0 (4.6 - 8.0) 08/02/17 17:50 Ur Specific [place] 1.020 (1.005-1.030) 08/02/17 17:50 Urine Protein 100 mg/dL (NEGATIVE) H 08/02/17 17:50 Urine Glucose (UA) NEGATIVE mg/dL (NEGATIVE) 08/02/17 17:50 Urine Ketones NEGATIVE mg/dL (NEGATIVE) 08/02/17 17:50 Urine Blood LARGE (NEGATIVE) H 08/02/17 17:50 Urine Nitrate NEGATIVE (NEGATIVE) 08/02/17 17:50 Urine Bilirubin NEGATIVE (NEGATIVE) 08/02/17 17:50 Urine Urobilinogen 0.2 E.U./dL (0.2 - 1.0) 08/02/17 17:50 Ur Leukocyte Esterase TRACE (NEGATIVE) H 08/02/17 17:50 Urine RBC 25-50 /hpf (0-5) H 08/02/17 17:50 Urine WBC 0-2 /hpf (0-5) 08/02/17 17:50 Ur Epithelial Cells FEW /lpf (FEW) 08/02/17 17:50 Urine Bacteria NONE SEEN /hpf (NONE SEEN) 08/02/17 17:50 Fluid Source THROACENTHESIS 08/04/17 11:00 Fluid Color RED 08/04/17 11:00 Fluid Appearance BLOODY 08/04/17 11:00 Fluid WBC 239 /cumm 08/04/17 11:00 Fluid RBC 88263 /cumm 08/04/17 11:00 Fluid Neutrophils 5 % 08/04/17 11:00 Fluid Lymphocytes 89 % 08/04/17 11:00 Fluid Monocytes 4 % 08/04/17 11:00 Fluid Eosinophils 1 % 08/04/17 11:00 Fluid Basophils 1 % 08/04/17 11:00 Fluid Glucose 118.0 mg/dL 08/04/17 11:00 Fluid Total Protein 4.1 g/dL 08/04/17 11:00 Fluid LDH 190 U/L 08/04/17 11:00 - Physical Exam Vitals and I&O: Vital Signs Temp 99.0 F 08/07/17 04:14 Pulse 98 08/07/17 08:31 Resp 20 08/07/17 07:32 BP 135/77 08/07/17 08:31 Pulse Ox 98 08/07/17 07:32 Intake & Output 08/06/17 08/07/17 08/07/17 18:59 06:59 18:59 Intake Total 50 100 Balance 50 100 Weight (lbs) 65.317 kg Intake: Intake, IV Amount 50 50 Piperacillin Sodium/ 50 50 Tazobact 2.25 gm In Sodium Chloride 0.9% 50 ml @ 100 mls/hr IV Q8HR [facility] Rx#:[id number] Oral 50 Other: Weight Source Bedscale Active Medications: Current Medications Acetaminophen (Tylenol) 650 mg PO Q6H PRN PRN Reason: HEADACHE/TEMP ABOVE 100F Stop: 10/02/17 07:22 Albuterol Sulfate (Albuterol 2.5mg/3ml Neb Ud) 2.5 mg HHN Q4HRT PRN PRN Reason: Shortness of Breath or Wheeze Stop: 10/02/17 06:59 Aspirin (Aspirin Chewable) 81 mg PO DAILY [facility] Stop: 10/02/17 08:59 Last Admin: 08/07/17 08:30 Dose: 81 mg Atorvastatin Calcium (Lipitor) 40 mg PO HS [facility] Stop: 10/02/17 20:59 Last Admin: 08/06/17 21:11 Dose: 40 mg Carvedilol (Coreg) 3.125 mg PO BID [facility] Stop: 10/02/17 08:59 Last Admin: 08/07/17 08:31 Dose: 3.125 mg Dextrose (D50w) 50 ml IVP PRN PRN PRN Reason: BLOOD SUGAR BELOW 60 Stop: 10/02/17 07:22 Docusate Sodium (Colace) 100 mg PO BID [facility] Stop: 10/02/17 08:59 Last Admin: 08/07/17 08:30 Dose: 100 mg Famotidine (Pepcid) 20 mg PO [facility] Stop: 10/02/17 20:59 Last Admin: 08/06/17 21:10 Dose: 20 mg Ferrous Sulfate (Iron) 325 mg PO TID [facility] Stop: 10/02/17 08:59 Last Admin: 08/07/17 08:30 Dose: 325 mg Gabapentin (Neurontin) 300 mg PO [facility] Stop: 10/02/17 20:59 Last Admin: 08/06/17 21:11 Dose: 300 mg Hydralazine HCl (Apresoline) 25 mg PO TID [facility] Stop: 10/02/17 08:59 Last Admin: 08/07/17 08:30 Dose: 25 mg Potassium Chloride 40 meq/Lidocaine HCl 25 mg/ Sodium Chloride 272.5 mls @ 68 mls/hr IV DAILY PRN PRN Reason: k level less than 3.2 Stop: 10/02/17 07:22 Magnesium Sulfate (Magnesium Sulfate Premix) 2 gm in 50 mls @ 25 mls/hr IV DAILY PRN PRN Reason: Magnesium level less than 1.6 Stop: 10/02/17 07:22 Piperacillin Sod/Tazobactam (Sod 2.25 gm/ Sodium Chloride) 50 mls @ 100 mls/hr IV Q8HR [facility] Stop: 10/03/17 12:59 Last Admin: 08/07/17 05:58 Dose: 100 mls/hr Insulin Aspart (Novolog Insulin Sliding Scale) 0 units SUBQ ACHS [place] PRN Reason: Protocol Stop: 10/02/17 07:29 Last Admin: 08/07/17 07:37 Dose: 2 units Ipratropium [place] (Atrovent Neb 0.5mg/2.5ml) 0.5 mg HHN Q4HRT PRN PRN Reason: Shortness of Breath or Wheeze Stop: 10/02/17 07:20 Isosorbide Dinitrate (Isordil) 10 mg PO TID [facility] Stop: 10/02/17 08:59 Last Admin: 08/07/17 08:30 Dose: 10 mg Levothyroxine Sodium (Synthroid) 0.1 mg PO QDAC [facility] Stop: 10/02/17 08:59 Last Admin: 08/07/17 07:37 Dose: 0.1 mg Lorazepam (Ativan) 1 mg IVP Q4HR PRN; Protocol PRN Reason: Anxiety Stop: 10/02/17 07:22 Last Admin: 08/06/17 21:18 Dose: 1 mg Magnesium Oxide (Mag-Oxide) 400 mg PO BID PRN PRN Reason: Mg less than 1.9 Stop: 10/02/17 07:22 Last Admin: 08/04/17 08:42 Dose: 400 mg Miscellaneous (Clinical Monitoring) 1 [facility] DAILY PRN PRN Reason: RENAL Stop: 10/02/17 10:23 Miscellaneous (Zosyn Iv Per Pharmacy) 1 [facility] PRN PRN PRN Reason: PROTOCOL Stop: 10/03/17 08:27 Miscellaneous (Pharmacy To Dose) 1 [facility] PRN [place] Stop: 10/05/17 15:59 Morphine Sulfate (Morphine) 1 mg IVP Q4HR PRN PRN Reason: Severe Pain Stop: 10/02/17 07:22 Last Admin: 08/06/17 03:24 Dose: 1 mg Nitroglycerin (Nitrostat) 0.4 mg SL TID PRN PRN Reason: Chest Pain Stop: 10/02/17 07:20 Ondansetron HCl (Zofran) 4 mg IVP Q6H PRN PRN Reason: Nausea / Vomiting Stop: 10/02/17 07:22 Potassium Chloride (Klor-Con) 40 meq PO DAILY PRN PRN Reason: k level less than 3.5 Stop: 10/02/17 07:22 Quetiapine Fumarate (Seroquel) 100 mg PO DAILY [facility] Stop: 10/05/17 08:59 Last Admin: 08/07/17 08:31 Dose: 100 mg Quetiapine Fumarate 100 mg/ (Quetiapine Fumarate 25 mg) 125 mg PO [facility] Stop: 10/04/17 20:59 Last Admin: 08/06/17 21:23 Dose: 125 mg Rivaroxaban (Xarelto) 10 mg PO DAILY [facility] Stop: 10/04/17 08:59 Last Admin: 08/07/17 08:30 Dose: 10 mg Tamsulosin HCl (Flomax) 0.4 mg PO DAILY [facility] Stop: 10/02/17 08:59 Last Admin: 08/07/17 08:30 Dose: 0.4 mg Vitamin B Complex/Vit C/Folic Acid (Vitamin B Complex W/Vitamin C) 1 tab PO DAILY [place] Stop: 10/02/17 08:59 Last Admin: 08/07/17 08:30 Dose: 1 tab Zinc Sulfate (Zinc Sulfate) 220 mg PO DAILY [facility] Stop: 10/02/17 08:59 Last Admin: 08/07/17 08:31 Dose: 220 mg Zolpidem Tartrate (Ambien) 5 mg PO HS PRN PRN Reason: Insomnia Stop: 10/02/17 07:20 General: Cooperative, No acute distress HEENT: Atraumatic, PERRLA Neck: Supple, no JVD Cardiovascular: Regular rate, Normal S1, Normal S2 Lungs: Other (has bl rales and congestion) Abdomen: Bowel sounds, Soft Extremities: Other (has bl bka) - Procedures Procedures: Procedures Procedure Code Date ASPIRATE PLEURA W/ IMAGING 43304 08/03/17 DRAINAGE OF LEFT PLEURAL CAVITY, PERCUTANEOUS APPROACH [id number] 08/03/17 Assessment/Plan - Assessment Assessment: Asp PNA ME VMN Anemia of Ch ill Psychosis Mod malnut CAD with hx of quad bypass sx in 2013 Dm-OOC BL BKA PAD Hyponatremia Diabetic Nephropathy and Neuropathy HTN-OOC L pleural effusion 30% L Pneumothorax - Plan Plan: Pt is scheduled for US guided thoracentesis of L pleural effusion. Dr. Hernandez and Dr. Zimmerman have seen the pt. Scheduled for dialysis today. On IV zosyn. Met with daughter. Discussed diabetic control. Status post L thoracentesis with 1.8 liters removed. Has L pneumothorax. Dr. Saez and Dr. Hernandez following. Repeat cxr tomorrow. Nutritional Asmnt/Malnutr-PDOC - Dietary Evaluation Malnutrition Findings (Please click <Entered> for more info): Nutritional Asmnt/Malnutrition Start: 08/03/17 17: 24 Text: Status: Complete Freq: Document 08/03/17 17:24 [id number] (Rec: 08/03/17 17:41 [id number]) Nutritional Asmnt/Malnutrition Patient General Information Nutritional Screening High Risk Consult Diagnosis PNA Pertinent Medical Hx/Surgical Hx HTN, DM, dyslipidemia, PUD/ GERD, ESRD, thyroid disorder, anemia of CKD, BPH, CABG, bilateral BKA, amputations of right 3rd, 4th and 5th digits Subjective Information Consult received for BS 214 at admission and low moni score, chronic surgical site. Pt seen sleeping at time of visit. RN reported pt ate well , consumed 100% of breakfast this morning. Current Diet Order/ Nutrition Support [facility]-60 Pertinent Medications colace, iron, novolog, synthroid, vit B complex w/vit C, zinc Pertinent Labs 08/03 Na 134, K 3.5, Cl 101, BUN 15, Cr 2.6, glucose 214, POC 183-196, A1c 5.2, Ca 8.4 Nutritional Hx/Data Height 1.65 m Height (Calculated Centimeters) 165.1 Current Weight (lbs) 65.317 kg Weight (Calculated Kilograms) 65.3 Weight (Calculated Grams) 68233.3 [place] Body Weight 136 % [place] Body Weight 105 Body Mass Index (BMI) 23.9 GI Symptoms GI Symptoms None Last BM 08/03 x 2 Difficult in: None Skin Integrity/Comment: Moni 12 scab to left wrist and left arm, reddened scar to sacrum Current %PO Good (75-100%) Estimated Nutritional Goals BEE in Kcals: Using Current wt Calories/Kcals/Kg 25-30 Kcals Calculated 2460-2110 Protein: Using Current wt Protein g/k-1.2 Protein Calculated 64-77 Fluid: ml 1600-1920ml (1ml/kcal) Nutritional Problem 1. Problem Problem altered nutrition related labs Etiology hx of DM Signs/Symptoms: glucose 214, POC 183-196 Malnutrition Alert Protein-Calorie Malnutrition N/A Is there a minimum of two criteria No selected? Query Text:Check all the applicable criteria. A minimum of two criteria are recommended for diagnosis of either severe or non-severe malnutrition. Intervention/Recommendation Comments 1. Continue with [facility]-60 diet as ordered. 2. Monitor PO intake, wt, labs and skin integrity 3. F/U as moderate risk in 3-5 days, 08/07-08/09 Expected Outcomes/Goals Expected Outcomes/Goals 1. PO intake to meet at least 75% of nutritional needs. 2. Wt stability, skin to remain intact, labs to approach WNL.
--- NOTE | 2017-08-07 15:29 | General Progress Note ---
Subjective - Review of Systems Service Date: 08/07/17 Subjective: patient seen and examined. Objective - Results Result Diagrams: 08/07/17 05:39 08/07/17 05:39 Recent Labs: Laboratory Last Values WBC 8.4 Th/cmm (4.8-10.8) 08/07/17 05:39 RBC 2.76 Mil/cmm (3.80-5.80) L 08/07/17 05:39 Hgb 8.8 gm/dL (12-16) L 08/07/17 05:39 Hct 26.0 % (41.0-60) L 08/07/17 05:39 MCV 94.0 fl (80-99) 08/07/17 05:39 MCH 32.0 pg (27.0-31.0) H 08/07/17 05:39 MCHC Differential 34.0 pg (28.0-36.0) 08/07/17 05:39 RDW 14.1 % (11.5-20.0) 08/07/17 05:39 Plt Count 271 Th/cmm (150-400) 08/07/17 05:39 MPV 8.6 fl 08/07/17 05:39 Neutrophils % 58.9 % (40.0-80.0) 08/07/17 05:39 Lymphocytes % 23.9 % (20.0-50.0) 08/07/17 05:39 Monocytes % 12.1 % (2.0-10.0) H 08/07/17 05:39 Eosinophils % 4.3 % (0.0-5.0) 08/07/17 05:39 Basophils % 0.8 % (0.0-2.0) 08/07/17 05:39 PT 11.3 SECONDS (9.5-11.5) 08/04/17 06:10 INR 1.09 (0.5-1.4) 08/04/17 06:10 PTT (Actin FS) 30.0 SECONDS (26.0-38.0) 08/04/17 06:10 Sodium 135 mEq/L (136-145) L 08/07/17 05:39 Potassium 3.7 mEq/L (3.5-5.1) 08/07/17 05:39 Chloride 101 mEq/L (98-107) 08/07/17 05:39 Carbon Dioxide 25.1 mEq/L (21.0-31.0) 08/07/17 05:39 Anion Gap 12.6 (7.0-16.0) 08/07/17 05:39 BUN 27 mg/dL (7-25) H 08/07/17 05:39 Creatinine 3.8 mg/dL (0.7-1.3) H 08/07/17 05:39 Est GFR ( Amer) 20.5 ml/min (>90) 08/07/17 05:39 Est GFR (Non-Af Amer) 16.9 ml/min 08/07/17 05:39 BUN/Creatinine Ratio 7.1 08/07/17 05:39 Glucose 150 mg/dL (70-105) H 08/07/17 05:39 POC Glucose 160 MG/DL (70 - 105) H 08/07/17 11:51 Hemoglobin A1c % 5.2 % (4.0-6.0) 08/03/17 01:15 Calcium 8.7 mg/dL (8.6-10.3) 08/07/17 05:39 Magnesium 1.8 mg/dL (1.9-2.7) L 08/03/17 01:15 Total Bilirubin 0.6 mg/dL (0.3-1.0) 08/03/17 01:15 AST 22 U/L (13-39) 08/03/17 01:15 ALT 13 U/L (7-52) 08/03/17 01:15 Alkaline Phosphatase 189 U/L (34-104) H 08/03/17 01:15 Total Protein 6.4 gm/dL (6.0-8.3) 08/03/17 01:15 Albumin 2.8 gm/dL (4.2-5.5) L 08/03/17 01:15 Globulin 3.6 gm/dL 08/03/17 01:15 Albumin/Globulin Ratio 0.8 (1.0-1.8) L 08/03/17 01:15 TSH 5.22 uIU/ml (0.34-5.60) 08/03/17 01:15 Urine Source RANDOM 08/02/17 17:50 Urine Color YELLOW 08/02/17 17:50 Urine Clarity HAZY (CLEAR) 08/02/17 17:50 Urine pH 7.0 (4.6 - 8.0) 08/02/17 17:50 Ur Specific [place] 1.020 (1.005-1.030) 08/02/17 17:50 Urine Protein 100 mg/dL (NEGATIVE) H 08/02/17 17:50 Urine Glucose (UA) NEGATIVE mg/dL (NEGATIVE) 08/02/17 17:50 Urine Ketones NEGATIVE mg/dL (NEGATIVE) 08/02/17 17:50 Urine Blood LARGE (NEGATIVE) H 08/02/17 17:50 Urine Nitrate NEGATIVE (NEGATIVE) 08/02/17 17:50 Urine Bilirubin NEGATIVE (NEGATIVE) 08/02/17 17:50 Urine Urobilinogen 0.2 E.U./dL (0.2 - 1.0) 08/02/17 17:50 Ur Leukocyte Esterase TRACE (NEGATIVE) H 08/02/17 17:50 Urine RBC 25-50 /hpf (0-5) H 08/02/17 17:50 Urine WBC 0-2 /hpf (0-5) 08/02/17 17:50 Ur Epithelial Cells FEW /lpf (FEW) 08/02/17 17:50 Urine Bacteria NONE SEEN /hpf (NONE SEEN) 08/02/17 17:50 Fluid Source THROACENTHESIS 08/04/17 11:00 Fluid Color RED 08/04/17 11:00 Fluid Appearance BLOODY 08/04/17 11:00 Fluid WBC 239 /cumm 08/04/17 11:00 Fluid RBC 03312 /cumm 08/04/17 11:00 Fluid Neutrophils 5 % 08/04/17 11:00 Fluid Lymphocytes 89 % 08/04/17 11:00 Fluid Monocytes 4 % 08/04/17 11:00 Fluid Eosinophils 1 % 08/04/17 11:00 Fluid Basophils 1 % 08/04/17 11:00 Fluid Glucose 118.0 mg/dL 08/04/17 11:00 Fluid Total Protein 4.1 g/dL 08/04/17 11:00 Fluid LDH 190 U/L 08/04/17 11:00 - Physical Exam Vitals and I&O: Vital Signs Temp 98.2 F 08/07/17 12:19 Pulse 88 08/07/17 13:23 Resp 18 08/07/17 12:19 BP 169/59 08/07/17 13:23 Pulse Ox 100 08/07/17 12:19 Intake & Output 08/06/17 08/07/17 08/07/17 18:59 06:59 18:59 Intake Total 50 150 Balance 50 150 Weight (lbs) 65.317 kg Intake: Intake, IV Amount 50 100 Piperacillin Sodium/ 50 100 Tazobact 2.25 gm In Sodium Chloride 0.9% 50 ml @ 100 mls/hr IV Q8HR [facility] Rx#:[id number] Oral 50 Other: Weight Source Bedscale Active Medications: Current Medications Acetaminophen (Tylenol) 650 mg PO Q6H PRN PRN Reason: HEADACHE/TEMP ABOVE 100F Stop: 10/02/17 07:22 Last Admin: 08/07/17 11:48 Dose: 650 mg Albuterol Sulfate (Albuterol 2.5mg/3ml Neb Ud) 2.5 mg HHN Q4HRT PRN PRN Reason: Shortness of Breath or Wheeze Stop: 10/02/17 06:59 Aspirin (Aspirin Chewable) 81 mg PO DAILY [facility] Stop: 10/02/17 08:59 Last Admin: 08/07/17 08:30 Dose: 81 mg Atorvastatin Calcium (Lipitor) 40 mg PO HS [facility] Stop: 10/02/17 20:59 Last Admin: 08/06/17 21:11 Dose: 40 mg Carvedilol (Coreg) 3.125 mg PO BID [facility] Stop: 10/02/17 08:59 Last Admin: 08/07/17 08:31 Dose: 3.125 mg Dextrose (D50w) 50 ml IVP PRN PRN PRN Reason: BLOOD SUGAR BELOW 60 Stop: 10/02/17 07:22 Docusate Sodium (Colace) 100 mg PO BID [facility] Stop: 10/02/17 08:59 Last Admin: 08/07/17 08:30 Dose: 100 mg Famotidine (Pepcid) 20 mg PO HS [facility] Stop: 10/02/17 20:59 Last Admin: 08/06/17 21:10 Dose: 20 mg Ferrous Sulfate (Iron) 325 mg PO TID [facility] Stop: 10/02/17 08:59 Last Admin: 08/07/17 13:23 Dose: 325 mg Gabapentin (Neurontin) 300 mg PO HS [facility] Stop: 10/02/17 20:59 Last Admin: 08/06/17 21:11 Dose: 300 mg Hydralazine HCl (Apresoline) 25 mg PO TID [facility] Stop: 10/02/17 08:59 Last Admin: 08/07/17 13:23 Dose: 25 mg Potassium Chloride 40 meq/Lidocaine HCl 25 mg/ Sodium Chloride 272.5 mls @ 68 mls/hr IV DAILY PRN PRN Reason: k level less than 3.2 Stop: 10/02/17 07:22 Magnesium Sulfate (Magnesium Sulfate Premix) 2 gm in 50 mls @ 25 mls/hr IV DAILY PRN PRN Reason: Magnesium level less than 1.6 Stop: 10/02/17 07:22 Piperacillin Sod/Tazobactam (Sod 2.25 gm/ Sodium Chloride) 50 mls @ 100 mls/hr IV Q8HR [facility] Stop: 10/03/17 12:59 Last Admin: 08/07/17 12:00 Dose: 100 mls/hr Insulin Aspart (Novolog Insulin Sliding Scale) 0 units SUBQ ACHS [facility] PRN Reason: Protocol Stop: 10/02/17 07:29 Last Admin: 08/07/17 11:56 Dose: 2 units Ipratropium [place] (Atrovent Neb 0.5mg/2.5ml) 0.5 mg HHN Q4HRT PRN PRN Reason: Shortness of Breath or Wheeze Stop: 10/02/17 07:20 Isosorbide Dinitrate (Isordil) 10 mg PO TID [facility] Stop: 10/02/17 08:59 Last Admin: 08/07/17 13:23 Dose: 10 mg Levothyroxine Sodium (Synthroid) 0.1 mg PO QDAC [facility] Stop: 10/02/17 08:59 Last Admin: 08/07/17 07:37 Dose: 0.1 mg Lorazepam (Ativan) 1 mg IVP Q4HR PRN; Protocol PRN Reason: Anxiety Stop: 10/02/17 07:22 Last Admin: 08/06/17 21:18 Dose: 1 mg Magnesium Oxide (Mag-Oxide) 400 mg PO BID PRN PRN Reason: Mg less than 1.9 Stop: 10/02/17 07:22 Last Admin: 08/04/17 08:42 Dose: 400 mg Miscellaneous (Clinical Monitoring) 1 ea MC DAILY PRN PRN Reason: RENAL Stop: 10/02/17 10:23 Miscellaneous (Zosyn Iv Per Pharmacy) 1 ea PRN PRN PRN Reason: PROTOCOL Stop: 10/03/17 08:27 Miscellaneous (Pharmacy To Dose) 1 ea PRN [facility] Stop: 10/05/17 15:59 Morphine Sulfate (Morphine) 1 mg IVP Q4HR PRN PRN Reason: Severe Pain Stop: 10/02/17 07:22 Last Admin: 08/06/17 03:24 Dose: 1 mg Nitroglycerin (Nitrostat) 0.4 mg SL TID PRN PRN Reason: Chest Pain Stop: 10/02/17 07:20 Ondansetron HCl (Zofran) 4 mg IVP Q6H PRN PRN Reason: Nausea / Vomiting Stop: 10/02/17 07:22 Potassium Chloride (Klor-Con) 40 meq PO DAILY PRN PRN Reason: k level less than 3.5 Stop: 10/02/17 07:22 Quetiapine Fumarate (Seroquel) 100 mg PO DAILY [facility] Stop: 10/05/17 08:59 Last Admin: 08/07/17 08:31 Dose: 100 mg Quetiapine Fumarate 100 mg/ (Quetiapine Fumarate 25 mg) 125 mg PO HS [facility] Stop: 10/04/17 20:59 Last Admin: 08/06/17 21:23 Dose: 125 mg Rivaroxaban (Xarelto) 10 mg PO DAILY [facility] Stop: 10/04/17 08:59 Last Admin: 08/07/17 08:30 Dose: 10 mg Tamsulosin HCl (Flomax) 0.4 mg PO DAILY [facility] Stop: 10/02/17 08:59 Last Admin: 08/07/17 08:30 Dose: 0.4 mg Vitamin B Complex/Vit C/Folic Acid (Vitamin B Complex W/Vitamin C) 1 tab PO DAILY [facility] Stop: 10/02/17 08:59 Last Admin: 08/07/17 08:30 Dose: 1 tab Zinc Sulfate (Zinc Sulfate) 220 mg PO DAILY [facility] Stop: 10/02/17 08:59 Last Admin: 08/07/17 08:31 Dose: 220 mg Zolpidem Tartrate (Ambien) 5 mg PO HS PRN PRN Reason: Insomnia Stop: 10/02/17 07:20 General: Cooperative, No acute distress HEENT: Atraumatic, PERRLA Neck: Supple, no JVD Cardiovascular: Regular rate, Normal S1, Normal S2 Lungs: Other (has bl rales and congestion) Abdomen: Bowel sounds, Soft Extremities: Other (has bl bka) - Procedures Procedures: Procedures Procedure Code Date ASPIRATE PLEURA W/ IMAGING 50377 08/03/17 DRAINAGE OF LEFT PLEURAL CAVITY, PERCUTANEOUS APPROACH [id number] 08/03/17 Assessment/Plan - Assessment Assessment: ESRD PLEURAL EFFUSION PNEUMONIA DM TYPE 2 PVD B/L BKA s/p thorocentesis with PTX - Plan Plan: CONTINUE HD SUPPORT HD Q Tuesday, , Tuesday Nutritional Asmnt/Malnutr-PDOC - Dietary Evaluation Malnutrition Findings (Please click <Entered> for more info): Nutritional Asmnt/Malnutrition Start: 08/03/17 17: 24 Text: Status: Complete Freq: Document 08/03/17 17:24 RAFA (Rec: 08/03/17 17:41 [facility] Nutritional Asmnt/Malnutrition Patient General Information Nutritional Screening High Risk Consult Diagnosis PNA Pertinent Medical Hx/Surgical Hx HTN, DM, dyslipidemia, PUD/ GERD, ESRD, thyroid disorder, anemia of CKD, BPH, CABG, bilateral BKA, amputations of right 3rd, 4th and 5th digits Subjective Information Consult received for BS 214 at admission and low luis eduardo score, chronic surgical site. Pt seen sleeping at time of visit. RN reported pt ate well , consumed 100% of breakfast this morning. Current Diet Order/ [facility] Pertinent Medications colace, iron, novolog, synthroid, vit B complex w/vit C, zinc Pertinent Labs 08/03 Na 134, K 3.5, Cl 101, BUN 15, Cr 2.6, glucose 214, POC 183-196, A1c 5.2, Ca 8.4 Nutritional Hx/Data Height 1.65 m Height (Calculated Centimeters) 165.1 Current Weight (lbs) 65.317 kg Weight (Calculated Kilograms) 65.3 Weight (Calculated Grams) 61702.3 [place] Body Weight 136 % [place] Body Weight 105 Body Mass Index (BMI) 23.9 GI Symptoms GI Symptoms None Last BM 08/03 x 2 Difficult in: None Skin Integrity/Comment: Luis Eduardo 12 scab to left wrist and left arm, reddened scar to sacrum Current %PO Good (75-100%) Estimated Nutritional Goals BEE in Kcals: Using Current wt Calories/Kcals/Kg 25-30 Kcals Calculated 0025-8440 Protein: Using Current wt Protein g/k-1.2 Protein Calculated 64-77 Fluid: ml 1600-1920ml (1ml/kcal) Nutritional Problem 1. Problem Problem altered nutrition related labs Etiology hx of DM Signs/Symptoms: glucose 214, POC 183-196 Malnutrition Alert Protein-Calorie Malnutrition N/A Is there a minimum of two criteria No selected? Query Text:Check all the applicable criteria. A minimum of two criteria are recommended for diagnosis of either severe or non-severe malnutrition. Intervention/Recommendation Comments 1. Continue with CCHO-60gm diet as ordered. 2. Monitor PO intake, wt, labs and skin integrity 3. F/U as moderate risk in 3-5 days, 08/07-08/09 Expected Outcomes/Goals Expected Outcomes/Goals 1. PO intake to meet at least 75% of nutritional needs. 2. Wt stability, skin to remain intact, labs to approach WNL.
[2017-08-08] MEDS: INSULIN ASPART SLIDING SCALE 100 UNITS/ML UNIT SUBQ SCH ×5 (01:20→22:00)
[2017-08-08] MEDS: Piperacillin/Tazobact 2.25 gm in 0.9% NS 50 ML IV SCH ×3 (04:35→21:30)
[2017-08-08 06:22] LABS: ANION GAP 15.1 (7.0-16.0); CALCIUM SERUM 8.1 mg/dL (8.6-10.3); GFR AFRICAN-AMERICAN 13.9 ml/min (>90); GFR NON AFRICAN-AMERICAN 11.5 ml/min; POTASSIUM SERUM 4.1 mEq/L (3.5-5.1)
[2017-08-08 06:24] LABS: CREATININE - SERUM 5.3 mg/dL (0.7-1.3)
[2017-08-08 06:44] LABS: BASOPHILE ABSOLUTE 0.1 Th/cumm (0-0.2); LYMPHOCYTE ABSOLUTE 1.7 Th/cmm (1.5-3.0); MONOCYTE ABSOLUTE 0.9 Th/cmm (0.3-1.0); WHITE BLOOD COUNT 7.1 Th/cmm (4.8-10.8)
[2017-08-08 06:45] LABS: HEMATOCRIT 22.9 % (41.0-60); MEAN CELL VOLUME 94.6 fl (80-99); RED BLOOD COUNT 2.43 Mil/cmm (3.80-5.80)
[2017-08-08 06:46] LABS: % BASOPHILS 0.8 % (0.0-2.0); % EOSINOPHILS 4.4 % (0.0-5.0); % LYMPHOCYTES 24.5 % (20.0-50.0); % MONOCYTES 12.8 % (2.0-10.0); % NEUTROPHILS 57.5 % (40.0-80.0); MEAN CORPUSCULAR HGB CONC 33.8 pg (28.0-36.0); MEAN PLATELET VOLUME 7.9 fl; NEUTROPHILE ABSOLUTE 4.1 Th/cmm (1.8-8.0); PLATELET COUNT 248 Th/cmm (150-400); RED CELL DISTRIBUTION WIDTH 14.1 % (11.5-20.0)
[2017-08-08 06:47] LABS: EOSINOPHILE ABSOLUTE 0.3 Th/cmm (0.1-0.4)
[2017-08-08 06:49] LABS: HEMOGLOBIN 7.8 gm/dL (12-16)
[2017-08-08] MEDS: Levothyroxine 0.1 Mg Tab PO SCH (07:02)
--- NOTE | 2017-08-08 08:29 | Diagnostic Imaging Report ---
Portable chest x-ray HISTORY: Pneumothorax Compared with prior exam of August 06, 2017, the remaining a small (less than 10%) left apical pneumothorax. Faint parenchymal density noted in the left apical region. Evidence of a small left pleural effusion noted. No other changes. IMPRESSION: 1. Findings consistent with a relatively small (approximately 10%) left apical pneumothorax. Faint parenchymal density also noted within the left upper lobe. If needed, a follow-up CT scan would provide additional detail.
[2017-08-08] MEDS ORDERED: Probiotic Screen MC PRN (09:00)
--- NOTE | 2017-08-08 09:02 | General Progress Note ---
Subjective - Review of Systems Service Date: 08/08/17 Subjective: Pt seen and eval. I've been discussing care with daughter in detail. She was able to answer many questions. 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 Pt is very non complaint with food. He still eats desserts in spite of dm-ooc. Pt more comfortable now. No fevers or chills. No cough. Has sob with exertion. Pt is status post L thoracentesis on 08/04/17, and 1.8 liters removed. Now has L 10% Pneumothorax, improved from 30%. Objective - Results Result Diagrams: 08/08/17 05:50 08/08/17 05:50 Recent Labs: Laboratory Last Values WBC 7.1 Th/cmm (4.8-10.8) 08/08/17 05:50 RBC 2.43 Mil/cmm (3.80-5.80) L 08/08/17 05:50 Hgb 7.8 gm/dL (12-16) L* 08/08/17 05:50 Hct 22.9 % (41.0-60) L 08/08/17 05:50 MCV 94.6 fl (80-99) 08/08/17 05:50 MCH 32.0 pg (27.0-31.0) H 08/08/17 05:50 MCHC Differential 33.8 pg (28.0-36.0) 08/08/17 05:50 RDW 14.1 % (11.5-20.0) 08/08/17 05:50 Plt Count 248 Th/cmm (150-400) 08/08/17 05:50 MPV 7.9 fl 08/08/17 05:50 Neutrophils % 57.5 % (40.0-80.0) 08/08/17 05:50 Lymphocytes % 24.5 % (20.0-50.0) 08/08/17 05:50 Monocytes % 12.8 % (2.0-10.0) H 08/08/17 05:50 Eosinophils % 4.4 % (0.0-5.0) 08/08/17 05:50 Basophils % 0.8 % (0.0-2.0) 08/08/17 05:50 PT 11.3 SECONDS (9.5-11.5) 08/04/17 06:10 INR 1.09 (0.5-1.4) 08/04/17 06:10 PTT (Actin FS) 30.0 SECONDS (26.0-38.0) 08/04/17 06:10 Sodium 132 mEq/L (136-145) L 08/08/17 05:50 Potassium 4.1 mEq/L (3.5-5.1) 08/08/17 05:50 Chloride 99 mEq/L (98-107) 08/08/17 05:50 Carbon Dioxide 22.0 mEq/L (21.0-31.0) 08/08/17 05:50 Anion Gap 15.1 (7.0-16.0) 08/08/17 05:50 BUN 42 mg/dL (7-25) H 08/08/17 05:50 Creatinine 5.3 mg/dL (0.7-1.3) H* 08/08/17 05:50 Est GFR ( Amer) 13.9 ml/min (>90) 08/08/17 05:50 Est GFR (Non-Af Amer) 11.5 ml/min 08/08/17 05:50 BUN/Creatinine Ratio 7.9 08/08/17 05:50 Glucose 165 mg/dL (70-105) H 08/08/17 05:50 POC Glucose 162 MG/DL (70 - 105) H 08/08/17 06:10 Hemoglobin A1c % 5.2 % (4.0-6.0) 08/03/17 01:15 Calcium 8.1 mg/dL (8.6-10.3) L 08/08/17 05:50 Magnesium 1.8 mg/dL (1.9-2.7) L 08/03/17 01:15 Total Bilirubin 0.6 mg/dL (0.3-1.0) 08/03/17 01:15 AST 22 U/L (13-39) 08/03/17 01:15 ALT 13 U/L (7-52) 08/03/17 01:15 Alkaline Phosphatase 189 U/L (34-104) H 08/03/17 01:15 Total Protein 6.4 gm/dL (6.0-8.3) 08/03/17 01:15 Albumin 2.8 gm/dL (4.2-5.5) L 08/03/17 01:15 Globulin 3.6 gm/dL 08/03/17 01:15 Albumin/Globulin Ratio 0.8 (1.0-1.8) L 08/03/17 01:15 TSH 5.22 uIU/ml (0.34-5.60) 08/03/17 01:15 Urine Source RANDOM 08/02/17 17:50 Urine Color YELLOW 08/02/17 17:50 Urine Clarity HAZY (CLEAR) 08/02/17 17:50 Urine pH 7.0 (4.6 - 8.0) 08/02/17 17:50 Ur Specific [place] 1.020 (1.005-1.030) 08/02/17 17:50 Urine Protein 100 mg/dL (NEGATIVE) H 08/02/17 17:50 Urine Glucose (UA) NEGATIVE mg/dL (NEGATIVE) 08/02/17 17:50 Urine Ketones NEGATIVE mg/dL (NEGATIVE) 08/02/17 17:50 Urine Blood LARGE (NEGATIVE) H 08/02/17 17:50 Urine Nitrate NEGATIVE (NEGATIVE) 08/02/17 17:50 Urine Bilirubin NEGATIVE (NEGATIVE) 08/02/17 17:50 Urine Urobilinogen 0.2 E.U./dL (0.2 - 1.0) 08/02/17 17:50 Ur Leukocyte Esterase TRACE (NEGATIVE) H 08/02/17 17:50 Urine RBC 25-50 /hpf (0-5) H 08/02/17 17:50 Urine WBC 0-2 /hpf (0-5) 08/02/17 17:50 Ur Epithelial Cells FEW /lpf (FEW) 08/02/17 17:50 Urine Bacteria NONE SEEN /hpf (NONE SEEN) 08/02/17 17:50 Fluid Source THROACENTHESIS 08/04/17 11:00 Fluid Color RED 08/04/17 11:00 Fluid Appearance BLOODY 08/04/17 11:00 Fluid WBC 239 /cumm 08/04/17 11:00 Fluid RBC 15406 /cumm 08/04/17 11:00 Fluid Neutrophils 5 % 08/04/17 11:00 Fluid Lymphocytes 89 % 08/04/17 11:00 Fluid Monocytes 4 % 08/04/17 11:00 Fluid Eosinophils 1 % 08/04/17 11:00 Fluid Basophils 1 % 08/04/17 11:00 Fluid Glucose 118.0 mg/dL 08/04/17 11:00 Fluid Total Protein 4.1 g/dL 08/04/17 11:00 Fluid LDH 190 U/L 08/04/17 11:00 - Physical Exam Vitals and I&O: Vital Signs Temp 97.8 F 08/08/17 04:00 Pulse 85 08/08/17 04:00 Resp 17 08/08/17 04:00 BP 134/58 08/08/17 04:00 Pulse Ox 98 08/08/17 04:00 Intake & Output 08/07/17 08/08/17 08/08/17 18:59 06:59 18:59 Intake Total 610 150 Balance 610 150 Weight (lbs) 65.317 kg 79.605 kg Intake: Intake, IV Amount 50 50 Piperacillin Sodium/ 50 50 Tazobact 2.25 gm In Sodium Chloride 0.9% 50 ml @ 100 mls/hr IV Q8HR [facility] Rx#:[id number] Oral 560 100 Other: # Voids 3 0 # Bowel Movements 1 1 Weight Source Bedscale Bedscale Active Medications: Current Medications Acetaminophen (Tylenol) 650 mg PO Q6H PRN PRN Reason: HEADACHE/TEMP ABOVE 100F Stop: 10/02/17 07:22 Last Admin: 08/07/17 11:48 Dose: 650 mg Albuterol Sulfate (Albuterol 2.5mg/3ml Neb Ud) 2.5 mg HHN Q4HRT PRN PRN Reason: Shortness of Breath or Wheeze Stop: 10/02/17 06:59 Aspirin (Aspirin Chewable) 81 mg PO DAILY [facility] Stop: 10/02/17 08:59 Last Admin: 08/07/17 08:30 Dose: 81 mg Atorvastatin Calcium (Lipitor) 40 mg PO HS [facility] Stop: 10/02/17 20:59 Last Admin: 08/07/17 22:10 Dose: 40 mg Carvedilol (Coreg) 3.125 mg PO BID [facility] Stop: 10/02/17 08:59 Last Admin: 08/07/17 17:10 Dose: 3.125 mg Dextrose (D50w) 50 ml IVP PRN PRN PRN Reason: BLOOD SUGAR BELOW 60 Stop: 10/02/17 07:22 Docusate Sodium (Colace) 100 mg PO BID [facility] Stop: 10/02/17 08:59 Last Admin: 08/07/17 17:10 Dose: 100 mg Famotidine (Pepcid) 20 mg PO HS [facility] Stop: 10/02/17 20:59 Last Admin: 08/07/17 22:13 Dose: 20 mg Ferrous Sulfate (Iron) 325 mg PO TID [facility] Stop: 10/02/17 08:59 Last Admin: 08/07/17 22:13 Dose: 325 mg Gabapentin (Neurontin) 300 mg PO [facility] Stop: 10/02/17 20:59 Last Admin: 08/07/17 22:13 Dose: 300 mg Hydralazine HCl (Apresoline) 25 mg PO TID [facility] Stop: 10/02/17 08:59 Last Admin: 08/07/17 22:04 Dose: 25 mg Potassium Chloride 40 meq/Lidocaine HCl 25 mg/ Sodium Chloride 272.5 mls @ 68 mls/hr IV DAILY PRN PRN Reason: k level less than 3.2 Stop: 10/02/17 07:22 Magnesium Sulfate (Magnesium Sulfate Premix) 2 gm in 50 mls @ 25 mls/hr IV DAILY PRN PRN Reason: Magnesium level less than 1.6 Stop: 10/02/17 07:22 Piperacillin Sod/Tazobactam (Sod 2.25 gm/ Sodium Chloride) 50 mls @ 100 mls/hr IV Q8HR [facility] Stop: 10/03/17 12:59 Last Admin: 08/08/17 04:35 Dose: 100 mls/hr Insulin Aspart (Novolog Insulin Sliding Scale) 0 units SUBQ ACHS [facility] PRN Reason: Protocol Stop: 10/02/17 07:29 Last Admin: 08/08/17 01:20 Dose: Not Given Ipratropium [place] (Atrovent Neb 0.5mg/2.5ml) 0.5 mg HHN Q4HRT PRN PRN Reason: Shortness of Breath or Wheeze Stop: 10/02/17 07:20 Isosorbide Dinitrate (Isordil) 10 mg PO TID [facility] Stop: 10/02/17 08:59 Last Admin: 08/07/17 22:12 Dose: 10 mg Lactobacillus Rhamnosus (Culturelle 15b) 1 each PO DAILY [facility] Stop: 10/07/17 08:59 Levothyroxine Sodium (Synthroid) 0.1 mg PO QDAC [facility] Stop: 10/02/17 08:59 Last Admin: 08/08/17 07:02 Dose: 0.1 mg Lorazepam (Ativan) 1 mg IVP Q4HR PRN; Protocol PRN Reason: Anxiety Stop: 10/02/17 07:22 Last Admin: 08/06/17 21:18 Dose: 1 mg Magnesium Oxide (Mag-Oxide) 400 mg PO BID PRN PRN Reason: Mg less than 1.9 Stop: 10/02/17 07:22 Last Admin: 08/04/17 08:42 Dose: 400 mg Miscellaneous (Clinical Monitoring) 1 ea MC DAILY PRN PRN Reason: RENAL Stop: 10/02/17 10:23 Miscellaneous (Zosyn Iv Per Pharmacy) 1 ea PRN PRN PRN Reason: PROTOCOL Stop: 10/03/17 08:27 Miscellaneous (Pharmacy To Dose) 1 ea MC PRN [facility] Stop: 10/05/17 15:59 Miscellaneous (Probiotic Screen) 1 ea PRN PRN PRN Reason: PROTOCOL Stop: 10/07/17 08:59 Morphine Sulfate (Morphine) 1 mg IVP Q4HR PRN PRN Reason: Severe Pain Stop: 10/02/17 07:22 Last Admin: 08/06/17 03:24 Dose: 1 mg Nitroglycerin (Nitrostat) 0.4 mg SL TID PRN PRN Reason: Chest Pain Stop: 10/02/17 07:20 Ondansetron HCl (Zofran) 4 mg IVP Q6H PRN PRN Reason: Nausea / Vomiting Stop: 10/02/17 07:22 Potassium Chloride (Klor-Con) 40 meq PO DAILY PRN PRN Reason: k level less than 3.5 Stop: 10/02/17 07:22 Quetiapine Fumarate (Seroquel) 100 mg PO DAILY [facility] Stop: 10/05/17 08:59 Last Admin: 08/07/17 08:31 Dose: 100 mg Quetiapine Fumarate 100 mg/ (Quetiapine Fumarate 25 mg) 125 mg PO HS [facility] Stop: 10/04/17 20:59 Last Admin: 08/07/17 22:02 Dose: 125 mg Rivaroxaban (Xarelto) 10 mg PO DAILY [facility] Stop: 10/04/17 08:59 Last Admin: 08/07/17 08:30 Dose: 10 mg Tamsulosin HCl (Flomax) 0.4 mg PO DAILY [facility] Stop: 10/02/17 08:59 Last Admin: 08/07/17 08:30 Dose: 0.4 mg Vitamin B Complex/Vit C/Folic Acid (Vitamin B Complex W/Vitamin C) 1 tab PO DAILY [facility] Stop: 10/02/17 08:59 Last Admin: 08/07/17 08:30 Dose: 1 tab Zinc Sulfate (Zinc Sulfate) 220 mg PO DAILY [facility] Stop: 10/02/17 08:59 Last Admin: 08/07/17 08:31 Dose: 220 mg Zolpidem Tartrate (Ambien) 5 mg PO HS PRN PRN Reason: Insomnia Stop: 10/02/17 07:20 General: Cooperative, No acute distress HEENT: Atraumatic, PERRLA Neck: Supple, no JVD Cardiovascular: Regular rate, Normal S1, Normal S2 Lungs: Other (has bl rales and congestion) Abdomen: Bowel sounds, Soft Extremities: Other (has bl bka) - Procedures Procedures: Procedures Procedure Code Date ASPIRATE PLEURA W/ IMAGING 07611 08/03/17 DRAINAGE OF LEFT PLEURAL CAVITY, PERCUTANEOUS APPROACH [id number] 08/03/17 Assessment/Plan - Assessment Assessment: Asp PNA ME VMN Anemia of Ch ill Psychosis Mod malnut CAD with hx of quad bypass sx in 2014 Dm-OOC BL BKA PAD Hyponatremia Diabetic Nephropathy and Neuropathy HTN-OOC L pleural effusion 10% L Pneumothorax - Plan Plan: Dr. Hernandez and Dr. Zimmerman have seen the pt. Has been receiving dialysis. On IV zosyn. Met with daughter. Discussed diabetic control. Status post L thoracentesis with 1.8 liters removed. Has L pneumothorax. It's decreased to 10% on repeat cxr as of 08/08/17. Dr. Saez and Dr. Hernandez following. Nutritional Asmnt/Malnutr-PDOC - Dietary Evaluation Malnutrition Findings (Please click <Entered> for more info): Nutritional Asmnt/Malnutrition Start: 08/03/17 17: 24 Text: Status: Complete Freq: Document 08/03/17 17:24 [email or web address] (Rec: 08/03/17 17:41 [id number]) Nutritional Asmnt/Malnutrition Patient General Information Nutritional Screening High Risk Consult Diagnosis PNA Pertinent Medical Hx/Surgical Hx HTN, DM, dyslipidemia, PUD/ GERD, ESRD, thyroid disorder, anemia of CKD, BPH, CABG, bilateral BKA, amputations of right 3rd, 4th and 5th digits Subjective Information Consult received for BS 214 at admission and low moni score, chronic surgical site. Pt seen sleeping at time of visit. RN reported pt ate well , consumed 100% of breakfast this morning. Current Diet Order/ Nutrition Support CCHO-60gm Pertinent Medications colace, iron, novolog, synthroid, vit B complex w/vit C, zinc Pertinent Labs 08/03 Na 134, K 3.5, Cl 101, BUN 15, Cr 2.6, glucose 214, POC 183-196, A1c 5.2, Ca 8.4 Nutritional Hx/Data Height 1.65 m Height (Calculated Centimeters) 165.1 Current Weight (lbs) 65.317 kg Weight (Calculated Kilograms) 65.3 Weight (Calculated Grams) 20103.3 [place] Body Weight 136 % [place] Body Weight 105 Body Mass Index (BMI) 23.9 GI Symptoms GI Symptoms None Last BM 08/03 x 2 Difficult in: None Skin Integrity/Comment: Moni 12 scab to left wrist and left arm, reddened scar to sacrum Current %PO Good (75-100%) Estimated Nutritional Goals BEE in Kcals: Using Current wt Calories/Kcals/Kg 25-30 Kcals Calculated 0925-3045 Protein: Using Current wt Protein g/k-1.2 Protein Calculated 64-77 Fluid: ml 1600-1920ml (1ml/kcal) Nutritional Problem 1. Problem Problem altered nutrition related labs Etiology hx of DM Signs/Symptoms: glucose 214, POC 183-196 Malnutrition Alert Protein-Calorie Malnutrition N/A Is there a minimum of two criteria No selected? Query Text:Check all the applicable criteria. A minimum of two criteria are recommended for diagnosis of either severe or non-severe malnutrition. Intervention/Recommendation Comments 1. Continue with CCHO-60gm diet as ordered. 2. Monitor PO intake, wt, labs and skin integrity 3. F/U as moderate risk in 3-5 days, 08/07-08/09 Expected Outcomes/Goals Expected Outcomes/Goals 1. PO intake to meet at least 75% of nutritional needs. 2. Wt stability, skin to remain intact, labs to approach WNL.
[2017-08-08] MEDS: Lactobacillus Rhamnosus GG 15 Billion CFU CAP.SPRINK PO SCH (09:25)
[2017-08-08] MEDS: Vitamin B Complex w/Vitamin C Tab PO SCH (09:25)
[2017-08-08] MEDS: Aspirin 81mg Chewable Tab PO SCH (09:26)
[2017-08-08] MEDS: Ferrous Sulfate 325 MG TAB PO SCH ×3 (09:26→21:38)
--- NOTE | 2017-08-08 16:29 | General Progress Note ---
Subjective - Review of Systems Service Date: 08/08/17 Subjective: patient seen and examined. Objective - Results Result Diagrams: 08/08/17 05:50 08/08/17 05:50 Recent Labs: Laboratory Last Values WBC 7.1 Th/cmm (4.8-10.8) 08/08/17 05:50 RBC 2.43 Mil/cmm (3.80-5.80) L 08/08/17 05:50 Hgb 7.8 gm/dL (12-16) L* 08/08/17 05:50 Hct 22.9 % (41.0-60) L 08/08/17 05:50 MCV 94.6 fl (80-99) 08/08/17 05:50 MCH 32.0 pg (27.0-31.0) H 08/08/17 05:50 MCHC Differential 33.8 pg (28.0-36.0) 08/08/17 05:50 RDW 14.1 % (11.5-20.0) 08/08/17 05:50 Plt Count 248 Th/cmm (150-400) 08/08/17 05:50 MPV 7.9 fl 08/08/17 05:50 Neutrophils % 57.5 % (40.0-80.0) 08/08/17 05:50 Lymphocytes % 24.5 % (20.0-50.0) 08/08/17 05:50 Monocytes % 12.8 % (2.0-10.0) H 08/08/17 05:50 Eosinophils % 4.4 % (0.0-5.0) 08/08/17 05:50 Basophils % 0.8 % (0.0-2.0) 08/08/17 05:50 PT 11.3 SECONDS (9.5-11.5) 08/04/17 06:10 INR 1.09 (0.5-1.4) 08/04/17 06:10 PTT (Actin FS) 30.0 SECONDS (26.0-38.0) 08/04/17 06:10 Sodium 132 mEq/L (136-145) L 08/08/17 05:50 Potassium 4.1 mEq/L (3.5-5.1) 08/08/17 05:50 Chloride 99 mEq/L (98-107) 08/08/17 05:50 Carbon Dioxide 22.0 mEq/L (21.0-31.0) 08/08/17 05:50 Anion Gap 15.1 (7.0-16.0) 08/08/17 05:50 BUN 42 mg/dL (7-25) H 08/08/17 05:50 Creatinine 5.3 mg/dL (0.7-1.3) H* 08/08/17 05:50 Est GFR ( Amer) 13.9 ml/min (>90) 08/08/17 05:50 Est GFR (Non-Af Amer) 11.5 ml/min 08/08/17 05:50 BUN/Creatinine Ratio 7.9 08/08/17 05:50 Glucose 165 mg/dL (70-105) H 08/08/17 05:50 POC Glucose 162 MG/DL (70 - 105) H 08/08/17 06:10 Hemoglobin A1c % 5.2 % (4.0-6.0) 08/03/17 01:15 Calcium 8.1 mg/dL (8.6-10.3) L 08/08/17 05:50 Magnesium 1.8 mg/dL (1.9-2.7) L 08/03/17 01:15 Total Bilirubin 0.6 mg/dL (0.3-1.0) 08/03/17 01:15 AST 22 U/L (13-39) 08/03/17 01:15 ALT 13 U/L (7-52) 08/03/17 01:15 Alkaline Phosphatase 189 U/L (34-104) H 08/03/17 01:15 Total Protein 6.4 gm/dL (6.0-8.3) 08/03/17 01:15 Albumin 2.8 gm/dL (4.2-5.5) L 08/03/17 01:15 Globulin 3.6 gm/dL 08/03/17 01:15 Albumin/Globulin Ratio 0.8 (1.0-1.8) L 08/03/17 01:15 TSH 5.22 uIU/ml (0.34-5.60) 08/03/17 01:15 Urine Source RANDOM 08/02/17 17:50 Urine Color YELLOW 08/02/17 17:50 Urine Clarity HAZY (CLEAR) 08/02/17 17:50 Urine pH 7.0 (4.6 - 8.0) 08/02/17 17:50 Ur Specific [place] 1.020 (1.005-1.030) 08/02/17 17:50 Urine Protein 100 mg/dL (NEGATIVE) H 08/02/17 17:50 Urine Glucose (UA) NEGATIVE mg/dL (NEGATIVE) 08/02/17 17:50 Urine Ketones NEGATIVE mg/dL (NEGATIVE) 08/02/17 17:50 Urine Blood LARGE (NEGATIVE) H 08/02/17 17:50 Urine Nitrate NEGATIVE (NEGATIVE) 08/02/17 17:50 Urine Bilirubin NEGATIVE (NEGATIVE) 08/02/17 17:50 Urine Urobilinogen 0.2 E.U./dL (0.2 - 1.0) 08/02/17 17:50 Ur Leukocyte Esterase TRACE (NEGATIVE) H 08/02/17 17:50 Urine RBC 25-50 /hpf (0-5) H 08/02/17 17:50 Urine WBC 0-2 /hpf (0-5) 08/02/17 17:50 Ur Epithelial Cells FEW /lpf (FEW) 08/02/17 17:50 Urine Bacteria NONE SEEN /hpf (NONE SEEN) 08/02/17 17:50 Fluid Source THROACENTHESIS 08/04/17 11:00 Fluid Color RED 08/04/17 11:00 Fluid Appearance BLOODY 08/04/17 11:00 Fluid WBC 239 /cumm 08/04/17 11:00 Fluid RBC 59729 /cumm 08/04/17 11:00 Fluid Neutrophils 5 % 08/04/17 11:00 Fluid Lymphocytes 89 % 08/04/17 11:00 Fluid Monocytes 4 % 08/04/17 11:00 Fluid Eosinophils 1 % 08/04/17 11:00 Fluid Basophils 1 % 08/04/17 11:00 Fluid Glucose 118.0 mg/dL 08/04/17 11:00 Fluid Total Protein 4.1 g/dL 08/04/17 11:00 Fluid LDH 190 U/L 08/04/17 11:00 - Physical Exam Vitals and I&O: Vital Signs Temp 96.5 F 08/08/17 12:03 Pulse 83 08/08/17 12:03 Resp 18 08/08/17 12:35 BP 123/43 08/08/17 12:03 Pulse Ox 99 08/08/17 07:57 Intake & Output 08/07/17 08/08/17 08/08/17 18:59 06:59 18:59 Intake Total 610 200 Balance 610 200 Weight (lbs) 65.317 kg 79.605 kg Intake: Intake, IV Amount 50 100 Piperacillin Sodium/ 50 100 Tazobact 2.25 gm In Sodium Chloride 0.9% 50 ml @ 100 mls/hr IV Q8HR [facility] Rx#:[id number] Oral 560 100 Other: # Voids 3 0 # Bowel Movements 1 1 Weight Source Bedscale Bedscale Active Medications: Current Medications Acetaminophen (Tylenol) 650 mg PO Q6H PRN PRN Reason: HEADACHE/TEMP ABOVE 100F Stop: 10/02/17 07:22 Last Admin: 08/07/17 11:48 Dose: 650 mg Albuterol Sulfate (Albuterol 2.5mg/3ml Neb Ud) 2.5 mg HHN Q4HRT PRN PRN Reason: Shortness of Breath or Wheeze Stop: 10/02/17 06:59 Aspirin (Aspirin Chewable) 81 mg PO DAILY [facility] Stop: 10/02/17 08:59 Last Admin: 08/08/17 09:26 Dose: 81 mg Atorvastatin Calcium (Lipitor) 40 mg PO HS [facility] Stop: 10/02/17 20:59 Last Admin: 08/07/17 22:10 Dose: 40 mg Carvedilol (Coreg) 3.125 mg PO BID [facility] Stop: 10/02/17 08:59 Last Admin: 08/08/17 09:26 Dose: 3.125 mg Dextrose (D50w) 50 ml IVP PRN PRN PRN Reason: BLOOD SUGAR BELOW 60 Stop: 10/02/17 07:22 Docusate Sodium (Colace) 100 mg PO BID [facility] Stop: 10/02/17 08:59 Last Admin: 08/08/17 09:26 Dose: 100 mg Famotidine (Pepcid) 20 mg PO HS [facility] Stop: 10/02/17 20:59 Last Admin: 08/07/17 22:13 Dose: 20 mg Ferrous Sulfate (Iron) 325 mg PO TID [facility] Stop: 10/02/17 08:59 Last Admin: 08/08/17 13:45 Dose: Not Given Gabapentin (Neurontin) 300 mg PO HS [facility] Stop: 10/02/17 20:59 Last Admin: 08/07/17 22:13 Dose: 300 mg Hydralazine HCl (Apresoline) 25 mg PO TID [facility] Stop: 10/02/17 08:59 Last Admin: 08/08/17 13:45 Dose: Not Given Potassium Chloride 40 meq/Lidocaine HCl 25 mg/ Sodium Chloride 272.5 mls @ 68 mls/hr IV DAILY PRN PRN Reason: k level less than 3.2 Stop: 10/02/17 07:22 Magnesium Sulfate (Magnesium Sulfate Premix) 2 gm in 50 mls @ 25 mls/hr IV DAILY PRN PRN Reason: Magnesium level less than 1.6 Stop: 10/02/17 07:22 Piperacillin Sod/Tazobactam (Sod 2.25 gm/ Sodium Chloride) 50 mls @ 100 mls/hr IV Q8HR [facility] Stop: 10/03/17 12:59 Last Admin: 08/08/17 15:52 Dose: 100 mls/hr Insulin Aspart (Novolog Insulin Sliding Scale) 0 units SUBQ ACHS [facility] PRN Reason: Protocol Stop: 10/02/17 07:29 Last Admin: 08/08/17 11:54 Dose: Not Given Ipratropium Black (Atrovent Neb 0.5mg/2.5ml) 0.5 mg HHN Q4HRT PRN PRN Reason: Shortness of Breath or Wheeze Stop: 10/02/17 07:20 Isosorbide Dinitrate (Isordil) 10 mg PO TID [facility] Stop: 10/02/17 08:59 Last Admin: 08/08/17 14:19 Dose: Not Given Lactobacillus Rhamnosus (Culturelle 15b) 1 each PO DAILY [facility] Stop: 10/07/17 08:59 Last Admin: 08/08/17 09:25 Dose: 1 each Levothyroxine Sodium (Synthroid) 0.1 mg PO QDAC [facility] Stop: 10/02/17 08:59 Last Admin: 08/08/17 07:02 Dose: 0.1 mg Lorazepam (Ativan) 1 mg IVP Q4HR PRN; Protocol PRN Reason: Anxiety Stop: 10/02/17 07:22 Last Admin: 08/06/17 21:18 Dose: 1 mg Magnesium Oxide (Mag-Oxide) 400 mg PO BID PRN PRN Reason: Mg less than 1.9 Stop: 10/02/17 07:22 Last Admin: 08/04/17 08:42 Dose: 400 mg Miscellaneous (Clinical Monitoring) 1 ea MC DAILY PRN PRN Reason: RENAL Stop: 10/02/17 10:23 Miscellaneous (Zosyn Iv Per Pharmacy) 1 ea PRN PRN PRN Reason: PROTOCOL Stop: 10/03/17 08:27 Miscellaneous (Pharmacy To Dose) 1 ea MC PRN [facility] Stop: 10/05/17 15:59 Miscellaneous (Probiotic Screen) 1 ea PRN PRN PRN Reason: PROTOCOL Stop: 10/07/17 08:59 Morphine Sulfate (Morphine) 1 mg IVP Q4HR PRN PRN Reason: Severe Pain Stop: 10/02/17 07:22 Last Admin: 08/06/17 03:24 Dose: 1 mg Nitroglycerin (Nitrostat) 0.4 mg SL TID PRN PRN Reason: Chest Pain Stop: 10/02/17 07:20 Ondansetron HCl (Zofran) 4 mg IVP Q6H PRN PRN Reason: Nausea / Vomiting Stop: 10/02/17 07:22 Potassium Chloride (Klor-Con) 40 meq PO DAILY PRN PRN Reason: k level less than 3.5 Stop: 10/02/17 07:22 Quetiapine Fumarate (Seroquel) 100 mg PO DAILY [facility] Stop: 10/05/17 08:59 Last Admin: 08/08/17 09:26 Dose: 100 mg Quetiapine Fumarate 100 mg/ (Quetiapine Fumarate 25 mg) 125 mg PO [facility] Stop: 10/04/17 20:59 Last Admin: 08/07/17 22:02 Dose: 125 mg Rivaroxaban (Xarelto) 10 mg PO DAILY [facility] Stop: 10/04/17 08:59 Last Admin: 08/08/17 09:25 Dose: 10 mg Tamsulosin HCl (Flomax) 0.4 mg PO DAILY [facility] Stop: 10/02/17 08:59 Last Admin: 08/08/17 09:25 Dose: 0.4 mg Vitamin B Complex/Vit C/Folic Acid (Vitamin B Complex W/Vitamin C) 1 tab PO DAILY [facility] Stop: 10/02/17 08:59 Last Admin: 08/08/17 09:25 Dose: 1 tab Zinc Sulfate (Zinc Sulfate) 220 mg PO DAILY [facility] Stop: 10/02/17 08:59 Last Admin: 08/08/17 09:25 Dose: 220 mg Zolpidem Tartrate (Ambien) 5 mg PO HS PRN PRN Reason: Insomnia Stop: 10/02/17 07:20 General: Cooperative, No acute distress HEENT: Atraumatic, PERRLA Neck: Supple, no JVD Cardiovascular: Regular rate, Normal S1, Normal S2 Lungs: Other (has bl rales and congestion) Abdomen: Bowel sounds, Soft Extremities: Other (has bl bka) - Procedures Procedures: Procedures Procedure Code Date ASPIRATE PLEURA W/ IMAGING 68294 08/03/17 DRAINAGE OF LEFT PLEURAL CAVITY, PERCUTANEOUS APPROACH 1P1P2SE 08/03/17 Assessment/Plan - Assessment Assessment: ESRD PLEURAL EFFUSION PNEUMONIA DM TYPE 2 PVD B/L BKA s/p thorocentesis with PTX - Plan Plan: CONTINUE HD SUPPORT HD Q Tuesday, , Tuesday Nutritional Asmnt/Malnutr-PDOC - Dietary Evaluation Malnutrition Findings (Please click <Entered> for more info): Nutritional Asmnt/Malnutrition Start: 08/03/17 17: 24 Text: Status: Complete Freq: Document 08/03/17 17:24 RAFA (Rec: 08/03/17 17:41 [id number]) Nutritional Asmnt/Malnutrition Patient General Information Nutritional Screening High Risk Consult Diagnosis PNA Pertinent Medical Hx/Surgical Hx HTN, DM, dyslipidemia, PUD/ GERD, ESRD, thyroid disorder, anemia of CKD, BPH, CABG, bilateral BKA, amputations of right 3rd, 4th and 5th digits Subjective Information Consult received for BS 214 at admission and low moni score, chronic surgical site. Pt seen sleeping at time of visit. RN reported pt ate well , consumed 100% of breakfast this morning. Current Diet Order/ Nutrition Support CCHO-60gm Pertinent Medications colace, iron, novolog, synthroid, vit B complex w/vit C, zinc Pertinent Labs 08/03 Na 134, K 3.5, Cl 101, BUN 15, Cr 2.6, glucose 214, POC 183-196, A1c 5.2, Ca 8.4 Nutritional Hx/Data Height 1.65 m Height (Calculated Centimeters) 165.1 Current Weight (lbs) 65.317 kg Weight (Calculated Kilograms) 65.3 Weight (Calculated Grams) 35611.3 [place] Body Weight 136 % [place] Body Weight 105 Body Mass Index (BMI) 23.9 GI Symptoms GI Symptoms None Last BM 08/03 x 2 Difficult in: None Skin Integrity/Comment: Moni 12 scab to left wrist and left arm, reddened scar to sacrum Current %PO Good (75-100%) Estimated Nutritional Goals BEE in Kcals: Using Current wt Calories/Kcals/Kg 25-30 Kcals Calculated 0235-3927 Protein: Using Current wt Protein g/k-1.2 Protein Calculated 64-77 Fluid: ml 1600-1920ml (1ml/kcal) Nutritional Problem 1. Problem Problem altered nutrition related labs Etiology hx of DM Signs/Symptoms: glucose 214, POC 183-196 Malnutrition Alert Protein-Calorie Malnutrition N/A Is there a minimum of two criteria No selected? Query Text:Check all the applicable criteria. A minimum of two criteria are recommended for diagnosis of either severe or non-severe malnutrition. Intervention/Recommendation Comments 1. Continue with CCHO-60gm diet as ordered. 2. Monitor PO intake, wt, labs and skin integrity 3. F/U as moderate risk in 3-5 days, 08/07-08/09 Expected Outcomes/Goals Expected Outcomes/Goals 1. PO intake to meet at least 75% of nutritional needs. 2. Wt stability, skin to remain intact, labs to approach WNL.
[2017-08-09] MEDS: Piperacillin/Tazobact 2.25 gm in 0.9% NS 50 ML IV SCH ×3 (04:57→20:41)
[2017-08-09 07:05] LABS: % BASOPHILS 0.6 % (0.0-2.0); % EOSINOPHILS 5.1 % (0.0-5.0); % LYMPHOCYTES 25.4 % (20.0-50.0); % MONOCYTES 10.8 % (2.0-10.0); % NEUTROPHILS 58.1 % (40.0-80.0); EOSINOPHILE ABSOLUTE 0.4 Th/cmm (0.1-0.4); HEMATOCRIT 26.7 % (41.0-60); LYMPHOCYTE ABSOLUTE 1.9 Th/cmm (1.5-3.0); MEAN CELL VOLUME 94.7 fl (80-99); MEAN CORPUSCULAR HEMOGLOBIN 31.9 pg (27.0-31.0); MEAN CORPUSCULAR HGB CONC 33.6 pg (28.0-36.0); MONOCYTE ABSOLUTE 0.8 Th/cmm (0.3-1.0); NEUTROPHILE ABSOLUTE 4.5 Th/cmm (1.8-8.0); PLATELET COUNT 280 Th/cmm (150-400); RED BLOOD COUNT 2.82 Mil/cmm (3.80-5.80); WHITE BLOOD COUNT 7.6 Th/cmm (4.8-10.8)
[2017-08-09 07:14] LABS: ANION GAP 14.3 (7.0-16.0); CALCIUM SERUM 8.5 mg/dL (8.6-10.3); CARBON DIOXIDE 23.6 mEq/L (21.0-31.0); CREATININE - SERUM 3.8 mg/dL (0.7-1.3); GFR AFRICAN-AMERICAN 20.5 ml/min (>90); GFR NON AFRICAN-AMERICAN 16.9 ml/min; POTASSIUM SERUM 3.9 mEq/L (3.5-5.1)
[2017-08-09] MEDS: INSULIN ASPART SLIDING SCALE 100 UNITS/ML UNIT SUBQ SCH ×4 (08:02→20:36)
--- NOTE | 2017-08-09 08:07 | Progress Notes ---
DATE: 08/09/2017 SUBJECTIVE: Chart reviewed and the patient interviewed. Also discussed the patient's condition with the staff and reviewed records and labs. The patient is slightly agitated, especially when staff tries to help him with his ADLs. The patient also is restless at times. On the other hand, the patient is compliant with taking his medications and no major behavioral issues. ASSESSMENT: The patient is less agitated and less irritable. TREATMENT PLAN: We will continue monitoring his behavior and continue current psychotropic medications and continue to follow up. JOB# [id number]
[2017-08-09] MEDS: Vitamin B Complex w/Vitamin C Tab PO SCH (08:13)
[2017-08-09] MEDS: Aspirin 81mg Chewable Tab PO SCH (08:14)
[2017-08-09] MEDS: Ferrous Sulfate 325 MG TAB PO SCH ×3 (08:16→20:34)
[2017-08-09] MEDS: Levothyroxine 0.1 Mg Tab PO SCH (08:30)
[2017-08-09] MEDS: Lactobacillus Rhamnosus GG 15 Billion CFU CAP.SPRINK PO SCH (08:30)
--- NOTE | 2017-08-09 11:32 | Discharge Summary ---
DATE OF DISCHARGE: 08/09/2017 CAUSE OF ADMISSION: The patient is a 66-year-old male. He lives in a snf facility. Dr. Hopkins is his psychiatrist. He has history of mood disorder and psychosis as well. He became more confused and was altered. He was agitated, aggressive towards the staff. He also pulled out his right chest Fady catheter. He is a dialysis patient, along with history of diabetes, anemia, and bilateral BKAs, dyslipidemia, peripheral arterial disease. ADMITTING DIAGNOSES: Metabolic encephalopathy; vasomotor nephropathy; psychosis; anemia of chronic illness; moderate malnutrition; diabetes mellitus, out of control; bilateral below knee amputations; history of DVT; hyperlipidemia; hyponatremia; diabetic neuropathy; peripheral arterial disease; hypertension, out of control. DISCHARGE DIAGNOSES: Left-sided pleural effusion, status post thoracentesis; left-sided pneumothorax, reduced to 10%; bilateral below knee amputations; peripheral arterial disease; hyponatremia; diabetic nephropathy; diabetic neuropathy; hypertension, out of control. Hyponatremia, vasomotor nephropathy, and hypokalemia. SUMMARY OF HOSPITAL COURSE: Dr. Zepeda has been following the patient for Pulmonary and Dr. Saez for surgery and Dr. Zimmerman for the plumber cub. He has been receiving dialysis, has been on IV Zosyn, met with the daughter. We discussed diabetic control. The patient had thoracentesis done with 1.8 liters removed. He also developed pneumothorax, decreased down to 10%. Repeat chest x-ray was done on 08/08/2017. Pulmonary and Surgery agreed to do anything as he is asymptomatic and the pneumothorax is resolving. The patient is stable to be discharged back to snf facility. PHYSICAL EXAMINATION: VITAL SIGNS: Today temperature 97 degrees, heart rate is 80, respirations is 18, blood pressure 160/75. Currently, no pain. GENERAL: No acute distress. He is awake, but weak and confused. HEENT: No acute issues. NECK: Trachea in midline. CARDIOVASCULAR: Regular rate and rhythm. SKIN: No rash. EXTREMITIES: No edema. LABORATORY DATA: UA is essentially negative. White count is 7.6; hemoglobin is 98; platelet count is 280,000. Sodium 135; potassium 3.9; chloride 101; bicarbonate 23.6; BUN 24; creatinine 3.8; glucose 158; calcium is 8.5. Also, the patient's chest x-ray shows that the pneumothorax is on 10%. PROGNOSIS: Fair. ACTIVITY: As tolerated. MEDICATIONS: All medication reviewed and reconciled. CONSULTS: Dr. Zimmerman for Nephrology, Dr. Saez for surgery and Dr. Hopkins for Psychiatry and Dr. Zepeda for Pulmonary. PROCEDURES: Left-sided thoracentesis and dialysis. PROGNOSIS: Fair. DISPOSITION: He is being discharged back to snf facility to ____. JOB# [id number]
--- NOTE | 2017-08-09 16:48 | General Progress Note ---
Subjective - Review of Systems Service Date: 08/09/17 Subjective: patient seen and examined. Objective - Results Result Diagrams: 08/09/17 06:40 08/09/17 06:40 Recent Labs: Laboratory Last Values WBC 7.6 Th/cmm (4.8-10.8) 08/09/17 06:40 RBC 2.82 Mil/cmm (3.80-5.80) L 08/09/17 06:40 Hgb 9.0 gm/dL (12-16) L 08/09/17 06:40 Hct 26.7 % (41.0-60) L 08/09/17 06:40 MCV 94.7 fl (80-99) 08/09/17 06:40 MCH 31.9 pg (27.0-31.0) H 08/09/17 06:40 MCHC Differential 33.6 pg (28.0-36.0) 08/09/17 06:40 RDW 14.0 % (11.5-20.0) 08/09/17 06:40 Plt Count 280 Th/cmm (150-400) 08/09/17 06:40 MPV 8.0 fl 08/09/17 06:40 Neutrophils % 58.1 % (40.0-80.0) 08/09/17 06:40 Lymphocytes % 25.4 % (20.0-50.0) 08/09/17 06:40 Monocytes % 10.8 % (2.0-10.0) H 08/09/17 06:40 Eosinophils % 5.1 % (0.0-5.0) H 08/09/17 06:40 Basophils % 0.6 % (0.0-2.0) 08/09/17 06:40 PT 11.3 SECONDS (9.5-11.5) 08/04/17 06:10 INR 1.09 (0.5-1.4) 08/04/17 06:10 PTT (Actin FS) 30.0 SECONDS (26.0-38.0) 08/04/17 06:10 Sodium 135 mEq/L (136-145) L 08/09/17 06:40 Potassium 3.9 mEq/L (3.5-5.1) 08/09/17 06:40 Chloride 101 mEq/L (98-107) 08/09/17 06:40 Carbon Dioxide 23.6 mEq/L (21.0-31.0) 08/09/17 06:40 Anion Gap 14.3 (7.0-16.0) 08/09/17 06:40 BUN 24 mg/dL (7-25) 08/09/17 06:40 Creatinine 3.8 mg/dL (0.7-1.3) H 08/09/17 06:40 Est GFR ( Amer) 20.5 ml/min (>90) 08/09/17 06:40 Est GFR (Non-Af Amer) 16.9 ml/min 08/09/17 06:40 BUN/Creatinine Ratio 6.3 08/09/17 06:40 Glucose 151 mg/dL (70-105) H 08/09/17 06:40 POC Glucose 271 MG/DL (70 - 105) H 08/09/17 16:27 Hemoglobin A1c % 5.2 % (4.0-6.0) 08/03/17 01:15 Calcium 8.5 mg/dL (8.6-10.3) L 08/09/17 06:40 Magnesium 1.8 mg/dL (1.9-2.7) L 08/03/17 01:15 Total Bilirubin 0.6 mg/dL (0.3-1.0) 08/03/17 01:15 AST 22 U/L (13-39) 08/03/17 01:15 ALT 13 U/L (7-52) 08/03/17 01:15 Alkaline Phosphatase 189 U/L (34-104) H 08/03/17 01:15 Total Protein 6.4 gm/dL (6.0-8.3) 08/03/17 01:15 Albumin 2.8 gm/dL (4.2-5.5) L 08/03/17 01:15 Globulin 3.6 gm/dL 08/03/17 01:15 Albumin/Globulin Ratio 0.8 (1.0-1.8) L 08/03/17 01:15 TSH 5.22 uIU/ml (0.34-5.60) 08/03/17 01:15 Urine Source RANDOM 08/02/17 17:50 Urine Color YELLOW 08/02/17 17:50 Urine Clarity HAZY (CLEAR) 08/02/17 17:50 Urine pH 7.0 (4.6 - 8.0) 08/02/17 17:50 Ur Specific [place] 1.020 (1.005-1.030) 08/02/17 17:50 Urine Protein 100 mg/dL (NEGATIVE) H 08/02/17 17:50 Urine Glucose (UA) NEGATIVE mg/dL (NEGATIVE) 08/02/17 17:50 Urine Ketones NEGATIVE mg/dL (NEGATIVE) 08/02/17 17:50 Urine Blood LARGE (NEGATIVE) H 08/02/17 17:50 Urine Nitrate NEGATIVE (NEGATIVE) 08/02/17 17:50 Urine Bilirubin NEGATIVE (NEGATIVE) 08/02/17 17:50 Urine Urobilinogen 0.2 E.U./dL (0.2 - 1.0) 08/02/17 17:50 Ur Leukocyte Esterase TRACE (NEGATIVE) H 08/02/17 17:50 Urine RBC 25-50 /hpf (0-5) H 08/02/17 17:50 Urine WBC 0-2 /hpf (0-5) 08/02/17 17:50 Ur Epithelial Cells FEW /lpf (FEW) 08/02/17 17:50 Urine Bacteria NONE SEEN /hpf (NONE SEEN) 08/02/17 17:50 Fluid Source THROACENTHESIS 08/04/17 11:00 Fluid Color RED 08/04/17 11:00 Fluid Appearance BLOODY 08/04/17 11:00 Fluid WBC 239 /cumm 08/04/17 11:00 Fluid RBC 90985 /cumm 08/04/17 11:00 Fluid Neutrophils 5 % 08/04/17 11:00 Fluid Lymphocytes 89 % 08/04/17 11:00 Fluid Monocytes 4 % 08/04/17 11:00 Fluid Eosinophils 1 % 08/04/17 11:00 Fluid Basophils 1 % 08/04/17 11:00 Fluid Glucose 118.0 mg/dL 08/04/17 11:00 Fluid Total Protein 4.1 g/dL 08/04/17 11:00 Fluid LDH 190 U/L 08/04/17 11:00 - Physical Exam Vitals and I&O: Vital Signs Temp 97.2 F 08/09/17 12:00 Pulse 93 08/09/17 16:18 Resp 19 08/09/17 12:00 BP 114/59 08/09/17 16:18 Pulse Ox 100 08/09/17 12:00 Intake & Output 08/08/17 08/09/17 08/09/17 18:59 06:59 18:59 Intake Total 450 200 220 Output Total 1500 Balance -1050 200 220 Weight (lbs) 79.605 kg 79.379 kg 79.379 kg Intake: Intake, IV Amount 50 100 Piperacillin Sodium/ 50 100 Tazobact 2.25 gm In Sodium Chloride 0.9% 50 ml @ 100 mls/hr IV Q8HR [facility] Rx#:[id number] Oral 400 100 220 Output: Hemodialysis 1500 Other: # Voids 0 0 # Bowel Movements 0 Weight Source Bedscale Bedscale Bedscale Active Medications: Current Medications Acetaminophen (Tylenol) 650 mg PO Q6H PRN PRN Reason: HEADACHE/TEMP ABOVE 100F Stop: 10/02/17 07:22 Last Admin: 08/07/17 11:48 Dose: 650 mg Albuterol Sulfate (Albuterol 2.5mg/3ml Neb Ud) 2.5 mg HHN Q4HRT PRN PRN Reason: Shortness of Breath or Wheeze Stop: 10/02/17 06:59 Aspirin (Aspirin Chewable) 81 mg PO DAILY [facility] Stop: 10/02/17 08:59 Last Admin: 08/09/17 08:14 Dose: 81 mg Atorvastatin Calcium (Lipitor) 40 mg PO HS [facility] Stop: 10/02/17 20:59 Last Admin: 08/08/17 21:37 Dose: 40 mg Carvedilol (Coreg) 3.125 mg PO BID [facility] Stop: 10/02/17 08:59 Last Admin: 08/09/17 08:13 Dose: 3.125 mg Dextrose (D50w) 50 ml IVP PRN PRN PRN Reason: BLOOD SUGAR BELOW 60 Stop: 10/02/17 07:22 Docusate Sodium (Colace) 100 mg PO BID [facility] Stop: 10/02/17 08:59 Last Admin: 08/09/17 08:14 Dose: 100 mg Famotidine (Pepcid) 20 mg PO HS [facility] Stop: 10/02/17 20:59 Last Admin: 08/08/17 21:38 Dose: 20 mg Ferrous Sulfate (Iron) 325 mg PO TID [facility] Stop: 10/02/17 08:59 Last Admin: 08/09/17 16:17 Dose: Not Given Gabapentin (Neurontin) 300 mg PO HS [facility] Stop: 10/02/17 20:59 Last Admin: 08/08/17 21:38 Dose: 300 mg Hydralazine HCl (Apresoline) 25 mg PO TID [facility] Stop: 10/02/17 08:59 Last Admin: 08/09/17 16:18 Dose: Not Given Potassium Chloride 40 meq/Lidocaine HCl 25 mg/ Sodium Chloride 272.5 mls @ 68 mls/hr IV DAILY PRN PRN Reason: k level less than 3.2 Stop: 10/02/17 07:22 Magnesium Sulfate (Magnesium Sulfate Premix) 2 gm in 50 mls @ 25 mls/hr IV DAILY PRN PRN Reason: Magnesium level less than 1.6 Stop: 10/02/17 07:22 Piperacillin Sod/Tazobactam (Sod 2.25 gm/ Sodium Chloride) 50 mls @ 100 mls/hr IV Q8HR [facility] Stop: 10/03/17 12:59 Last Admin: 08/09/17 12:26 Dose: 100 mls/hr Insulin Aspart (Novolog Insulin Sliding Scale) 0 units SUBQ ACHS [facility] PRN Reason: Protocol Stop: 10/02/17 07:29 Last Admin: 08/09/17 16:36 Dose: 6 units Ipratropium [place] (Atrovent Neb 0.5mg/2.5ml) 0.5 mg HHN Q4HRT PRN PRN Reason: Shortness of Breath or Wheeze Stop: 10/02/17 07:20 Isosorbide Dinitrate (Isordil) 10 mg PO TID [facility] Stop: 10/02/17 08:59 Last Admin: 08/09/17 16:18 Dose: Not Given Lactobacillus Rhamnosus (Culturelle 15b) 1 each PO DAILY [facility] Stop: 10/07/17 08:59 Last Admin: 08/09/17 08:30 Dose: 1 each Levothyroxine Sodium (Synthroid) 0.1 mg PO QDAC [facility] Stop: 10/02/17 08:59 Last Admin: 08/09/17 08:30 Dose: 0.1 mg Lorazepam (Ativan) 1 mg IVP Q4HR PRN; Protocol PRN Reason: Anxiety Stop: 10/02/17 07:22 Last Admin: 08/09/17 14:09 Dose: 1 mg Magnesium Oxide (Mag-Oxide) 400 mg PO BID PRN PRN Reason: Mg less than 1.9 Stop: 10/02/17 07:22 Last Admin: 08/04/17 08:42 Dose: 400 mg Miscellaneous (Clinical Monitoring) 1 ea MC DAILY PRN PRN Reason: RENAL Stop: 10/02/17 10:23 Miscellaneous (Zosyn Iv Per Pharmacy) 1 ea MC PRN PRN PRN Reason: PROTOCOL Stop: 10/03/17 08:27 Miscellaneous (Pharmacy To Dose) 1 ea MC PRN [facility] Stop: 10/05/17 15:59 Miscellaneous (Probiotic Screen) 1 ea MC PRN PRN PRN Reason: PROTOCOL Stop: 10/07/17 08:59 Morphine Sulfate (Morphine) 1 mg IVP Q4HR PRN PRN Reason: Severe Pain Stop: 10/02/17 07:22 Last Admin: 08/06/17 03:24 Dose: 1 mg Nitroglycerin (Nitrostat) 0.4 mg SL TID PRN PRN Reason: Chest Pain Stop: 10/02/17 07:20 Ondansetron HCl (Zofran) 4 mg IVP Q6H PRN PRN Reason: Nausea / Vomiting Stop: 10/02/17 07:22 Potassium Chloride (Klor-Con) 40 meq PO DAILY PRN PRN Reason: k level less than 3.5 Stop: 10/02/17 07:22 Quetiapine Fumarate (Seroquel) 100 mg PO DAILY [facility] Stop: 10/05/17 08:59 Last Admin: 08/09/17 08:14 Dose: 100 mg Quetiapine Fumarate 100 mg/ (Quetiapine Fumarate 25 mg) 125 mg PO [facility] Stop: 10/04/17 20:59 Last Admin: 08/08/17 21:43 Dose: 125 mg Rivaroxaban (Xarelto) 10 mg PO DAILY [facility] Stop: 10/04/17 08:59 Last Admin: 08/09/17 08:13 Dose: 10 mg Tamsulosin HCl (Flomax) 0.4 mg PO DAILY [facility] Stop: 10/02/17 08:59 Last Admin: 08/09/17 08:15 Dose: 0.4 mg Vitamin B Complex/Vit C/Folic Acid (Vitamin B Complex W/Vitamin C) 1 tab PO DAILY [facility] Stop: 10/02/17 08:59 Last Admin: 08/09/17 08:13 Dose: 1 tab Zinc Sulfate (Zinc Sulfate) 220 mg PO DAILY [facility] Stop: 10/02/17 08:59 Last Admin: 08/09/17 08:12 Dose: 220 mg Zolpidem Tartrate (Ambien) 5 mg PO HS PRN PRN Reason: Insomnia Stop: 10/02/17 07:20 General: Cooperative, No acute distress HEENT: Atraumatic, PERRLA Neck: Supple, no JVD Cardiovascular: Regular rate, Normal S1, Normal S2 Lungs: Other (has bl rales and congestion) Abdomen: Bowel sounds, Soft Extremities: Other (has bl bka) - Procedures Procedures: Procedures Procedure Code Date ASPIRATE PLEURA W/ IMAGING 50410 08/03/17 DRAINAGE OF LEFT PLEURAL CAVITY, PERCUTANEOUS APPROACH [id number] 08/03/17 Assessment/Plan - Assessment Assessment: ESRD PLEURAL EFFUSION PNEUMONIA DM TYPE 2 PVD B/L BKA s/p thorocentesis with PTX - Plan Plan: CONTINUE HD SUPPORT HD Q Tuesday, , Tuesday Nutritional Asmnt/Malnutr-PDOC - Dietary Evaluation Malnutrition Findings (Please click <Entered> for more info): Nutritional Asmnt/Malnutrition Start: 08/03/17 17: 24 Text: Status: Complete Freq: Document 08/03/17 17:24 HEN (Rec: 08/03/17 17:41 [email or web address] [id number]) Nutritional Asmnt/Malnutrition Patient General Information Nutritional Screening High Risk Consult Diagnosis PNA Pertinent Medical Hx/Surgical Hx HTN, DM, dyslipidemia, PUD/ GERD, ESRD, thyroid disorder, anemia of CKD, BPH, CABG, bilateral BKA, amputations of right 3rd, 4th and 5th digits Subjective Information Consult received for BS 214 at admission and low luis eduardo score, chronic surgical site. Pt seen sleeping at time of visit. RN reported pt ate well , consumed 100% of breakfast this morning. Current Diet [facility]/ [facility] Pertinent Medications colace, iron, novolog, synthroid, vit B complex w/vit C, zinc Pertinent Labs 08/03 Na 134, K 3.5, Cl 101, BUN 15, Cr 2.6, glucose 214, POC 183-196, A1c 5.2, Ca 8.4 Nutritional Hx/Data Height 1.65 m Height (Calculated Centimeters) 165.1 Current Weight (lbs) 65.317 kg Weight (Calculated Kilograms) 65.3 Weight (Calculated Grams) 56526.3 [place] Body Weight 136 % [place] Body Weight 105 Body Mass Index (BMI) 23.9 GI Symptoms GI Symptoms None Last BM 08/03 x 2 Difficult in: None Skin Integrity/Comment: Luis Eduardo 12 scab to left wrist and left arm, reddened scar to sacrum Current %PO Good (75-100%) Estimated Nutritional Goals BEE in Kcals: Using Current wt Calories/Kcals/Kg 25-30 Kcals Calculated 2196-5905 Protein: Using Current wt Protein g/k-1.2 Protein Calculated 64-77 Fluid: ml 1600-1920ml (1ml/kcal) Nutritional Problem 1. Problem Problem altered nutrition related labs Etiology hx of DM Signs/Symptoms: glucose 214, POC 183-196 Malnutrition Alert Protein-Calorie Malnutrition N/A Is there a minimum of two criteria No selected? Query Text:Check all the applicable criteria. A minimum of two criteria are recommended for diagnosis of either severe or non-severe malnutrition. Intervention/Recommendation Comments 1. Continue with CCHO-60gm diet as ordered. 2. Monitor PO intake, wt, labs and skin integrity 3. F/U as moderate risk in 3-5 days, 08/07-/3 Expected Outcomes/Goals Expected Outcomes/Goals 1. PO intake to meet at least 75% of nutritional needs. 2. Wt stability, skin to remain intact, labs to approach WNL.
[2017-08-10] MEDS: Piperacillin/Tazobact 2.25 gm in 0.9% NS 50 ML IV SCH ×3 (05:22→22:07)
[2017-08-10 06:13] LABS: % BASOPHILS 0.9 % (0.0-2.0); % EOSINOPHILS 4.4 % (0.0-5.0); % LYMPHOCYTES 23.5 % (20.0-50.0); % MONOCYTES 10.9 % (2.0-10.0); % NEUTROPHILS 60.3 % (40.0-80.0); BASOPHILE ABSOLUTE 0.1 Th/cumm (0-0.2); EOSINOPHILE ABSOLUTE 0.4 Th/cmm (0.1-0.4); HEMATOCRIT 25.2 % (41.0-60); HEMOGLOBIN 8.6 gm/dL (12-16); MEAN CELL VOLUME 94.1 fl (80-99); MEAN CORPUSCULAR HEMOGLOBIN 32.2 pg (27.0-31.0); MEAN CORPUSCULAR HGB CONC 34.2 pg (28.0-36.0); MEAN PLATELET VOLUME 7.9 fl; MONOCYTE ABSOLUTE 0.9 Th/cmm (0.3-1.0); PLATELET COUNT 283 Th/cmm (150-400); RED BLOOD COUNT 2.68 Mil/cmm (3.80-5.80); WHITE BLOOD COUNT 8.4 Th/cmm (4.8-10.8)
[2017-08-10 06:26] LABS: ANION GAP 16.6 (7.0-16.0); CALCIUM SERUM 8.4 mg/dL (8.6-10.3); CARBON DIOXIDE 20.6 mEq/L (21.0-31.0); GFR NON AFRICAN-AMERICAN 13.2 ml/min; POTASSIUM SERUM 4.2 mEq/L (3.5-5.1)
[2017-08-10 06:27] LABS: CREATININE - SERUM 4.7 mg/dL (0.7-1.3)
[2017-08-10] MEDS: Levothyroxine 0.1 Mg Tab PO SCH (06:45)
--- NOTE | 2017-08-10 08:38 | General Progress Note ---
Subjective - Review of Systems Service Date: 08/10/17 Subjective: patient seen and examined. Objective - Results Result Diagrams: 08/10/17 05:51 08/10/17 05:51 Recent Labs: Laboratory Last Values WBC 8.4 Th/cmm (4.8-10.8) 08/10/17 05:51 RBC 2.68 Mil/cmm (3.80-5.80) L 08/10/17 05:51 Hgb 8.6 gm/dL (12-16) L 08/10/17 05:51 Hct 25.2 % (41.0-60) L 08/10/17 05:51 MCV 94.1 fl (80-99) 08/10/17 05:51 MCH 32.2 pg (27.0-31.0) H 08/10/17 05:51 MCHC Differential 34.2 pg (28.0-36.0) 08/10/17 05:51 RDW 14.0 % (11.5-20.0) 08/10/17 05:51 Plt Count 283 Th/cmm (150-400) 08/10/17 05:51 MPV 7.9 fl 08/10/17 05:51 Neutrophils % 60.3 % (40.0-80.0) 08/10/17 05:51 Lymphocytes % 23.5 % (20.0-50.0) 08/10/17 05:51 Monocytes % 10.9 % (2.0-10.0) H 08/10/17 05:51 Eosinophils % 4.4 % (0.0-5.0) 08/10/17 05:51 Basophils % 0.9 % (0.0-2.0) 08/10/17 05:51 PT 11.3 SECONDS (9.5-11.5) 08/04/17 06:10 INR 1.09 (0.5-1.4) 08/04/17 06:10 PTT (Actin FS) 30.0 SECONDS (26.0-38.0) 08/04/17 06:10 Sodium 133 mEq/L (136-145) L 08/10/17 05:51 Potassium 4.2 mEq/L (3.5-5.1) 08/10/17 05:51 Chloride 100 mEq/L (98-107) 08/10/17 05:51 Carbon Dioxide 20.6 mEq/L (21.0-31.0) L 08/10/17 05:51 Anion Gap 16.6 (7.0-16.0) H 08/10/17 05:51 BUN 39 mg/dL (7-25) H 08/10/17 05:51 Creatinine 4.7 mg/dL (0.7-1.3) H* 08/10/17 05:51 Est GFR ( Amer) 16.0 ml/min (>90) 08/10/17 05:51 Est GFR (Non-Af Amer) 13.2 ml/min 08/10/17 05:51 BUN/Creatinine Ratio 8.3 08/10/17 05:51 Glucose 167 mg/dL (70-105) H 08/10/17 05:51 POC Glucose 166 MG/DL (70 - 105) H 08/10/17 06:00 Hemoglobin A1c % 5.2 % (4.0-6.0) 08/03/17 01:15 Calcium 8.4 mg/dL (8.6-10.3) L 08/10/17 05:51 Magnesium 1.8 mg/dL (1.9-2.7) L 08/03/17 01:15 Total Bilirubin 0.6 mg/dL (0.3-1.0) 08/03/17 01:15 AST 22 U/L (13-39) 08/03/17 01:15 ALT 13 U/L (7-52) 08/03/17 01:15 Alkaline Phosphatase 189 U/L (34-104) H 08/03/17 01:15 Total Protein 6.4 gm/dL (6.0-8.3) 08/03/17 01:15 Albumin 2.8 gm/dL (4.2-5.5) L 08/03/17 01:15 Globulin 3.6 gm/dL 08/03/17 01:15 Albumin/Globulin Ratio 0.8 (1.0-1.8) L 08/03/17 01:15 TSH 5.22 uIU/ml (0.34-5.60) 08/03/17 01:15 Urine Source RANDOM 08/02/17 17:50 Urine Color YELLOW 08/02/17 17:50 Urine Clarity HAZY (CLEAR) 08/02/17 17:50 Urine pH 7.0 (4.6 - 8.0) 08/02/17 17:50 Ur Specific [place] 1.020 (1.005-1.030) 08/02/17 17:50 Urine Protein 100 mg/dL (NEGATIVE) H 08/02/17 17:50 Urine Glucose (UA) NEGATIVE mg/dL (NEGATIVE) 08/02/17 17:50 Urine Ketones NEGATIVE mg/dL (NEGATIVE) 08/02/17 17:50 Urine Blood LARGE (NEGATIVE) H 08/02/17 17:50 Urine Nitrate NEGATIVE (NEGATIVE) 08/02/17 17:50 Urine Bilirubin NEGATIVE (NEGATIVE) 08/02/17 17:50 Urine Urobilinogen 0.2 E.U./dL (0.2 - 1.0) 08/02/17 17:50 Ur Leukocyte Esterase TRACE (NEGATIVE) H 08/02/17 17:50 Urine RBC 25-50 /hpf (0-5) H 08/02/17 17:50 Urine WBC 0-2 /hpf (0-5) 08/02/17 17:50 Ur Epithelial Cells FEW /lpf (FEW) 08/02/17 17:50 Urine Bacteria NONE SEEN /hpf (NONE SEEN) 08/02/17 17:50 Fluid Source THROACENTHESIS 08/04/17 11:00 Fluid Color RED 08/04/17 11:00 Fluid Appearance BLOODY 08/04/17 11:00 Fluid WBC 239 /cumm 08/04/17 11:00 Fluid RBC 02106 /cumm 08/04/17 11:00 Fluid Neutrophils 5 % 08/04/17 11:00 Fluid Lymphocytes 89 % 08/04/17 11:00 Fluid Monocytes 4 % 08/04/17 11:00 Fluid Eosinophils 1 % 08/04/17 11:00 Fluid Basophils 1 % 08/04/17 11:00 Fluid Glucose 118.0 mg/dL 08/04/17 11:00 Fluid Total Protein 4.1 g/dL 08/04/17 11:00 Fluid LDH 190 U/L 08/04/17 11:00 - Physical Exam Vitals and I&O: Vital Signs Temp 97.2 F 08/10/17 04:00 Pulse 81 08/10/17 07:39 Resp 20 08/10/17 07:39 BP 128/79 08/10/17 04:00 Pulse Ox 99 08/10/17 07:39 Intake & Output 08/09/17 08/10/17 08/10/17 18:59 06:59 18:59 Intake Total 750 340 Output Total 0 Balance 750 340 Weight (lbs) 79.379 kg 67.132 kg Intake: Intake, IV Amount 50 100 Piperacillin Sodium/ 50 100 Tazobact 2.25 gm In Sodium Chloride 0.9% 50 ml @ 100 mls/hr IV Q8HR [facility] Rx#:[id number] Oral 700 240 Output: Urine 0 Stool 0 Other: # Voids 0 # Bowel Movements 1 Weight Source Bedscale Bedscale Active Medications: Current Medications Acetaminophen (Tylenol) 650 mg PO Q6H PRN PRN Reason: HEADACHE/TEMP ABOVE 100F Stop: 10/02/17 07:22 Last Admin: 08/07/17 11:48 Dose: 650 mg Albuterol Sulfate (Albuterol 2.5mg/3ml Neb Ud) 2.5 mg HHN Q4HRT PRN PRN Reason: Shortness of Breath or Wheeze Stop: 10/02/17 06:59 Aspirin (Aspirin Chewable) 81 mg PO DAILY [facility] Stop: 10/02/17 08:59 Last Admin: 08/09/17 08:14 Dose: 81 mg Atorvastatin Calcium (Lipitor) 40 mg PO HS [facility] Stop: 10/02/17 20:59 Last Admin: 08/09/17 20:34 Dose: 40 mg Carvedilol (Coreg) 3.125 mg PO BID [facility] Stop: 10/02/17 08:59 Last Admin: 08/09/17 17:01 Dose: Not Given Dextrose (D50w) 50 ml IVP PRN PRN PRN Reason: BLOOD SUGAR BELOW 60 Stop: 10/02/17 07:22 Docusate Sodium (Colace) 100 mg PO BID [facility] Stop: 10/02/17 08:59 Last Admin: 08/09/17 16:58 Dose: Not Given Famotidine (Pepcid) 20 mg PO HS [facility] Stop: 10/02/17 20:59 Last Admin: 08/09/17 20:34 Dose: 20 mg Ferrous Sulfate (Iron) 325 mg PO TID [facility] Stop: 10/02/17 08:59 Last Admin: 08/09/17 20:34 Dose: 325 mg Gabapentin (Neurontin) 300 mg PO HS [facility] Stop: 10/02/17 20:59 Last Admin: 08/09/17 20:34 Dose: 300 mg Hydralazine HCl (Apresoline) 25 mg PO TID [facility] Stop: 10/02/17 08:59 Last Admin: 08/09/17 20:34 Dose: 25 mg Potassium Chloride 40 meq/Lidocaine HCl 25 mg/ Sodium Chloride 272.5 mls @ 68 mls/hr IV DAILY PRN PRN Reason: k level less than 3.2 Stop: 10/02/17 07:22 Magnesium Sulfate (Magnesium Sulfate Premix) 2 gm in 50 mls @ 25 mls/hr IV DAILY PRN PRN Reason: Magnesium level less than 1.6 Stop: 10/02/17 07:22 Piperacillin Sod/Tazobactam (Sod 2.25 gm/ Sodium Chloride) 50 mls @ 100 mls/hr IV Q8HR [facility] Stop: 10/03/17 12:59 Last Infusion: 08/10/17 05:52 Dose: Infused Insulin Aspart (Novolog Insulin Sliding Scale) 0 units SUBQ ACHS [facility] PRN Reason: Protocol Stop: 10/02/17 07:29 Last Admin: 08/09/17 20:36 Dose: 2 units Ipratropium [place] (Atrovent Neb 0.5mg/2.5ml) 0.5 mg HHN Q4HRT PRN PRN Reason: Shortness of Breath or Wheeze Stop: 10/02/17 07:20 Isosorbide Dinitrate (Isordil) 10 mg PO TID [facility] Stop: 10/02/17 08:59 Last Admin: 08/09/17 20:33 Dose: 10 mg Lactobacillus Rhamnosus (Culturelle 15b) 1 each PO DAILY [facility] Stop: 10/07/17 08:59 Last Admin: 08/09/17 08:30 Dose: 1 each Levothyroxine Sodium (Synthroid) 0.1 mg PO QDAC [facility] Stop: 10/02/17 08:59 Last Admin: 08/10/17 06:45 Dose: 0.1 mg Lorazepam (Ativan) 1 mg IVP Q4HR PRN; Protocol PRN Reason: Anxiety Stop: 10/02/17 07:22 Last Admin: 08/09/17 21:06 Dose: 1 mg Magnesium Oxide (Mag-Oxide) 400 mg PO BID PRN PRN Reason: Mg less than 1.9 Stop: 10/02/17 07:22 Last Admin: 08/04/17 08:42 Dose: 400 mg Miscellaneous (Clinical Monitoring) 1 ea MC DAILY PRN PRN Reason: RENAL Stop: 10/02/17 10:23 Miscellaneous (Zosyn Iv Per Pharmacy) 1 ea PRN PRN PRN Reason: PROTOCOL Stop: 10/03/17 08:27 Miscellaneous (Pharmacy To Dose) 1 ea MC PRN [facility] Stop: 10/05/17 15:59 Miscellaneous (Probiotic Screen) 1 ea PRN PRN PRN Reason: PROTOCOL Stop: 10/07/17 08:59 Morphine Sulfate (Morphine) 1 mg IVP Q4HR PRN PRN Reason: Severe Pain Stop: 10/02/17 07:22 Last Admin: 08/06/17 03:24 Dose: 1 mg Nitroglycerin (Nitrostat) 0.4 mg SL TID PRN PRN Reason: Chest Pain Stop: 10/02/17 07:20 Ondansetron HCl (Zofran) 4 mg IVP Q6H PRN PRN Reason: Nausea / Vomiting Stop: 10/02/17 07:22 Potassium Chloride (Klor-Con) 40 meq PO DAILY PRN PRN Reason: k level less than 3.5 Stop: 10/02/17 07:22 Quetiapine Fumarate (Seroquel) 100 mg PO DAILY [facility] Stop: 10/05/17 08:59 Last Admin: 08/09/17 08:14 Dose: 100 mg Quetiapine Fumarate 100 mg/ (Quetiapine Fumarate 25 mg) [address] [facility] Stop: 10/04/17 20:59 Last Admin: 08/09/17 21:57 Dose: 125 mg Rivaroxaban (Xarelto) 10 mg PO DAILY [facility] Stop: 10/04/17 08:59 Last Admin: 08/09/17 08:13 Dose: 10 mg Tamsulosin HCl (Flomax) 0.4 mg PO DAILY [facility] Stop: 10/02/17 08:59 Last Admin: 08/09/17 08:15 Dose: 0.4 mg Vitamin B Complex/Vit C/Folic Acid (Vitamin B Complex W/Vitamin C) 1 tab PO DAILY [facility] Stop: 10/02/17 08:59 Last Admin: 08/09/17 08:13 Dose: 1 tab Zinc Sulfate (Zinc Sulfate) 220 mg PO DAILY [facility] Stop: 10/02/17 08:59 Last Admin: 08/09/17 08:12 Dose: 220 mg Zolpidem Tartrate (Ambien) 5 mg PO HS PRN PRN Reason: Insomnia Stop: 10/02/17 07:20 General: Cooperative, No acute distress HEENT: Atraumatic, PERRLA Neck: Supple, no JVD Cardiovascular: Regular rate, Normal S1, Normal S2 Lungs: Other (has bl rales and congestion) Abdomen: Bowel sounds, Soft Extremities: Other (has bl bka) - Procedures Procedures: Procedures Procedure Code Date ASPIRATE PLEURA W/ IMAGING 26730 08/03/17 DRAINAGE OF LEFT PLEURAL CAVITY, PERCUTANEOUS APPROACH [id number] 08/03/17 Assessment/Plan - Assessment Assessment: ESRD PLEURAL EFFUSION PNEUMONIA DM TYPE 2 PVD B/L BKA s/p thorocentesis with PTX - Plan Plan: CONTINUE HD SUPPORT HD Q Tuesday, , Tuesday Nutritional Asmnt/Malnutr-PDOC - Dietary Evaluation Malnutrition Findings (Please click <Entered> for more info): Nutritional Asmnt/Malnutrition Start: 08/03/17 17: 24 Text: Status: Complete Freq: Document 08/03/17 17:24 RAFA (Rec: 08/03/17 17:41 HEN [email or web address]) Nutritional Asmnt/Malnutrition Patient General Information Nutritional Screening High Risk Consult Diagnosis PNA Pertinent Medical Hx/Surgical Hx HTN, DM, dyslipidemia, PUD/ GERD, ESRD, thyroid disorder, anemia of CKD, BPH, CABG, bilateral BKA, amputations of right 3rd, 4th and 5th digits Subjective Information Consult received for BS 214 at admission and low moni score, chronic surgical site. Pt seen sleeping at time of visit. RN reported pt ate well , consumed 100% of breakfast this morning. Current Diet [facility]/ [facility] Pertinent Medications colace, iron, novolog, synthroid, vit B complex w/vit C, zinc Pertinent Labs 08/03 Na 134, K 3.5, Cl 101, BUN 15, Cr 2.6, glucose 214, POC 183-196, A1c 5.2, Ca 8.4 Nutritional Hx/Data Height 1.65 m Height (Calculated Centimeters) 165.1 Current Weight (lbs) 65.317 kg Weight (Calculated Kilograms) 65.3 Weight (Calculated Grams) 63707.3 [place] Body Weight 136 % [place] Body Weight 105 Body Mass Index (BMI) 23.9 GI Symptoms GI Symptoms None Last BM 08/03 x 2 Difficult in: None Skin Integrity/Comment: Moni 12 scab to left wrist and left arm, reddened scar to sacrum Current %PO Good (75-100%) Estimated Nutritional Goals BEE in Kcals: Using Current wt Calories/Kcals/Kg 25-30 Kcals Calculated 1215-9550 Protein: Using Current wt Protein g/k-1.2 Protein Calculated 64-77 Fluid: ml 1600-1920ml (1ml/kcal) Nutritional Problem 1. Problem Problem altered nutrition related labs Etiology hx of DM Signs/Symptoms: glucose 214, POC 183-196 Malnutrition Alert Protein-Calorie Malnutrition N/A Is there a minimum of two criteria No selected? Query Text:Check all the applicable criteria. A minimum of two criteria are recommended for diagnosis of either severe or non-severe malnutrition. Intervention/Recommendation Comments 1. [facility] as ordered. 2. Monitor PO intake, wt, labs and skin integrity 3. F/U as moderate risk in 3-5 days, 08/07-08/09 Expected Outcomes/Goals Expected Outcomes/Goals 1. PO intake to meet at least 75% of nutritional needs. 2. Wt stability, skin to remain intact, labs to approach WNL.
--- NOTE | 2017-08-10 09:35 | General Progress Note ---
Subjective - Review of Systems Service Date: 08/10/17 Subjective: Pt seen and eval. I've been discussing care with daughter in detail. She was able to answer many questions. 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 Pt is very non complaint with food. He still eats desserts in spite of dm-ooc. Pt more comfortable now. No fevers or chills. No cough. Has sob with exertion. Pt is status post L thoracentesis on 08/04/17, and 1.8 liters removed. Now has L 10% Pneumothorax, improved from 30%. ADDENDUM TO DC SUMMARY: Pt was to be DC'd to his SNF on 08/09/17. We are working to communicate with the SNF as pt was within 7 day bed hold. Objective - Results Result Diagrams: 08/10/17 05:51 08/10/17 05:51 Recent Labs: Laboratory Last Values WBC 8.4 Th/cmm (4.8-10.8) 08/10/17 05:51 RBC 2.68 Mil/cmm (3.80-5.80) L 08/10/17 05:51 Hgb 8.6 gm/dL (12-16) L 08/10/17 05:51 Hct 25.2 % (41.0-60) L 08/10/17 05:51 MCV 94.1 fl (80-99) 08/10/17 05:51 MCH 32.2 pg (27.0-31.0) H 08/10/17 05:51 MCHC Differential 34.2 pg (28.0-36.0) 08/10/17 05:51 RDW 14.0 % (11.5-20.0) 08/10/17 05:51 Plt Count 283 Th/cmm (150-400) 08/10/17 05:51 MPV 7.9 fl 08/10/17 05:51 Neutrophils % 60.3 % (40.0-80.0) 08/10/17 05:51 Lymphocytes % 23.5 % (20.0-50.0) 08/10/17 05:51 Monocytes % 10.9 % (2.0-10.0) H 08/10/17 05:51 Eosinophils % 4.4 % (0.0-5.0) 08/10/17 05:51 Basophils % 0.9 % (0.0-2.0) 08/10/17 05:51 PT 11.3 SECONDS (9.5-11.5) 08/04/17 06:10 INR 1.09 (0.5-1.4) 08/04/17 06:10 PTT (Actin FS) 30.0 SECONDS (26.0-38.0) 08/04/17 06:10 Sodium 133 mEq/L (136-145) L 08/10/17 05:51 Potassium 4.2 mEq/L (3.5-5.1) 08/10/17 05:51 Chloride 100 mEq/L (98-107) 08/10/17 05:51 Carbon Dioxide 20.6 mEq/L (21.0-31.0) L 08/10/17 05:51 Anion Gap 16.6 (7.0-16.0) H 08/10/17 05:51 BUN 39 mg/dL (7-25) H 08/10/17 05:51 Creatinine 4.7 mg/dL (0.7-1.3) H* 08/10/17 05:51 Est GFR ( Amer) 16.0 ml/min (>90) 08/10/17 05:51 Est GFR (Non-Af Amer) 13.2 ml/min 08/10/17 05:51 BUN/Creatinine Ratio 8.3 08/10/17 05:51 Glucose 167 mg/dL (70-105) H 08/10/17 05:51 POC Glucose 166 MG/DL (70 - 105) H 08/10/17 06:00 Hemoglobin A1c % 5.2 % (4.0-6.0) 08/03/17 01:15 Calcium 8.4 mg/dL (8.6-10.3) L 08/10/17 05:51 Magnesium 1.8 mg/dL (1.9-2.7) L 08/03/17 01:15 Total Bilirubin 0.6 mg/dL (0.3-1.0) 08/03/17 01:15 AST 22 U/L (13-39) 08/03/17 01:15 ALT 13 U/L (7-52) 08/03/17 01:15 Alkaline Phosphatase 189 U/L (34-104) H 08/03/17 01:15 Total Protein 6.4 gm/dL (6.0-8.3) 08/03/17 01:15 Albumin 2.8 gm/dL (4.2-5.5) L 08/03/17 01:15 Globulin 3.6 gm/dL 08/03/17 01:15 Albumin/Globulin Ratio 0.8 (1.0-1.8) L 08/03/17 01:15 TSH 5.22 uIU/ml (0.34-5.60) 08/03/17 01:15 Urine Source RANDOM 08/02/17 17:50 Urine Color YELLOW 08/02/17 17:50 Urine Clarity HAZY (CLEAR) 08/02/17 17:50 Urine pH 7.0 (4.6 - 8.0) 08/02/17 17:50 Ur Specific [place] 1.020 (1.005-1.030) 08/02/17 17:50 Urine Protein 100 mg/dL (NEGATIVE) H 08/02/17 17:50 Urine Glucose (UA) NEGATIVE mg/dL (NEGATIVE) 08/02/17 17:50 Urine Ketones NEGATIVE mg/dL (NEGATIVE) 08/02/17 17:50 Urine Blood LARGE (NEGATIVE) H 08/02/17 17:50 Urine Nitrate NEGATIVE (NEGATIVE) 08/02/17 17:50 Urine Bilirubin NEGATIVE (NEGATIVE) 08/02/17 17:50 Urine Urobilinogen 0.2 E.U./dL (0.2 - 1.0) 08/02/17 17:50 Ur Leukocyte Esterase TRACE (NEGATIVE) H 08/02/17 17:50 Urine RBC 25-50 /hpf (0-5) H 08/02/17 17:50 Urine WBC 0-2 /hpf (0-5) 08/02/17 17:50 Ur Epithelial Cells FEW /lpf (FEW) 08/02/17 17:50 Urine Bacteria NONE SEEN /hpf (NONE SEEN) 08/02/17 17:50 Fluid Source THROACENTHESIS 08/04/17 11:00 Fluid Color RED 08/04/17 11:00 Fluid Appearance BLOODY 08/04/17 11:00 Fluid WBC 239 /cumm 08/04/17 11:00 Fluid RBC 83801 /cumm 08/04/17 11:00 Fluid Neutrophils 5 % 08/04/17 11:00 Fluid Lymphocytes 89 % 08/04/17 11:00 Fluid Monocytes 4 % 08/04/17 11:00 Fluid Eosinophils 1 % 08/04/17 11:00 Fluid Basophils 1 % 08/04/17 11:00 Fluid Glucose 118.0 mg/dL 08/04/17 11:00 Fluid Total Protein 4.1 g/dL 08/04/17 11:00 Fluid LDH 190 U/L 08/04/17 11:00 - Physical Exam Vitals and I&O: Vital Signs Temp 97.2 F 08/10/17 04:00 Pulse 81 08/10/17 07:39 Resp 20 08/10/17 07:39 BP 128/79 08/10/17 04:00 Pulse Ox 99 08/10/17 07:39 Intake & Output 08/09/17 08/10/17 08/10/17 18:59 06:59 18:59 Intake Total 750 340 Output Total 0 Balance 750 340 Weight (lbs) 79.379 kg 67.132 kg Intake: Intake, IV Amount 50 100 Piperacillin Sodium/ 50 100 Tazobact 2.25 gm In Sodium Chloride 0.9% 50 ml @ 100 mls/hr IV Q8HR [facility] Rx#:[id number] Oral 700 240 Output: Urine 0 Stool 0 Other: # Voids 0 # Bowel Movements 1 Weight Source Bedscale Bedscale Active Medications: Current Medications Acetaminophen (Tylenol) 650 mg PO Q6H PRN PRN Reason: HEADACHE/TEMP ABOVE 100F Stop: 10/02/17 07:22 Last Admin: 08/07/17 11:48 Dose: 650 mg Albuterol Sulfate (Albuterol 2.5mg/3ml Neb Ud) 2.5 mg HHN Q4HRT PRN PRN Reason: Shortness of Breath or Wheeze Stop: 10/02/17 06:59 Aspirin (Aspirin Chewable) 81 mg PO DAILY [facility] Stop: 10/02/17 08:59 Last Admin: 08/09/17 08:14 Dose: 81 mg Atorvastatin Calcium (Lipitor) 40 mg PO HS [facility] Stop: 10/02/17 20:59 Last Admin: 08/09/17 20:34 Dose: 40 mg Carvedilol (Coreg) 3.125 mg PO BID [facility] Stop: 10/02/17 08:59 Last Admin: 08/09/17 17:01 Dose: Not Given Dextrose (D50w) 50 ml IVP PRN PRN PRN Reason: BLOOD SUGAR BELOW 60 Stop: 10/02/17 07:22 Docusate Sodium (Colace) 100 mg PO BID [facility] Stop: 10/02/17 08:59 Last Admin: 08/09/17 16:58 Dose: Not Given Famotidine (Pepcid) 20 mg PO HS [facility] Stop: 10/02/17 20:59 Last Admin: 08/09/17 20:34 Dose: 20 mg Ferrous Sulfate (Iron) 325 mg PO TID [facility] Stop: 10/02/17 08:59 Last Admin: 08/09/17 20:34 Dose: 325 mg Gabapentin (Neurontin) 300 mg PO [facility] Stop: 10/02/17 20:59 Last Admin: 08/09/17 20:34 Dose: 300 mg Hydralazine HCl (Apresoline) 25 mg PO TID [facility] Stop: 10/02/17 08:59 Last Admin: 08/09/17 20:34 Dose: 25 mg Potassium Chloride 40 meq/Lidocaine HCl 25 mg/ Sodium Chloride 272.5 mls @ 68 mls/hr IV DAILY PRN PRN Reason: k level less than 3.2 Stop: 10/02/17 07:22 Magnesium Sulfate (Magnesium Sulfate Premix) 2 gm in 50 mls @ 25 mls/hr IV DAILY PRN PRN Reason: Magnesium level less than 1.6 Stop: 10/02/17 07:22 Piperacillin Sod/Tazobactam (Sod 2.25 gm/ Sodium Chloride) 50 mls @ 100 mls/hr IV Q8HR [facility] Stop: 10/03/17 12:59 Last Infusion: 08/10/17 05:52 Dose: Infused Insulin Aspart (Novolog Insulin Sliding Scale) 0 units SUBQ ACHS [facility] PRN Reason: Protocol Stop: 10/02/17 07:29 Last Admin: 08/09/17 20:36 Dose: 2 units Ipratropium [place] (Atrovent Neb 0.5mg/2.5ml) 0.5 mg HHN Q4HRT PRN PRN Reason: Shortness of Breath or Wheeze Stop: 10/02/17 07:20 Isosorbide Dinitrate (Isordil) 10 mg PO TID [facility] Stop: 10/02/17 08:59 Last Admin: 08/09/17 20:33 Dose: 10 mg Lactobacillus Rhamnosus (Culturelle 15b) 1 each PO DAILY [facility] Stop: 10/07/17 08:59 Last Admin: 08/09/17 08:30 Dose: 1 each Levothyroxine Sodium (Synthroid) 0.1 mg PO QDAC [facility] Stop: 10/02/17 08:59 Last Admin: 08/10/17 06:45 Dose: 0.1 mg Lorazepam (Ativan) 1 mg IVP Q4HR PRN; Protocol PRN Reason: Anxiety Stop: 10/02/17 07:22 Last Admin: 08/09/17 21:06 Dose: 1 mg Magnesium Oxide (Mag-Oxide) 400 mg PO BID PRN PRN Reason: Mg less than 1.9 Stop: 10/02/17 07:22 Last Admin: 08/04/17 08:42 Dose: 400 mg Miscellaneous (Clinical Monitoring) 1 ea [facility] DAILY PRN PRN Reason: RENAL Stop: 10/02/17 10:23 Miscellaneous (Zosyn Iv Per Pharmacy) 1 ea PRN PRN PRN Reason: PROTOCOL Stop: 10/03/17 08:27 Miscellaneous (Pharmacy To Dose) 1 ea MC PRN [facility] Stop: 10/05/17 15:59 Miscellaneous (Probiotic Screen) 1 ea PRN PRN PRN Reason: PROTOCOL Stop: 10/07/17 08:59 Morphine Sulfate (Morphine) 1 mg IVP Q4HR PRN PRN Reason: Severe Pain Stop: 10/02/17 07:22 Last Admin: 08/06/17 03:24 Dose: 1 mg Nitroglycerin (Nitrostat) 0.4 mg SL TID PRN PRN Reason: Chest Pain Stop: 10/02/17 07:20 Ondansetron HCl (Zofran) 4 mg IVP Q6H PRN PRN Reason: Nausea / Vomiting Stop: 10/02/17 07:22 Potassium Chloride (Klor-Con) 40 meq PO DAILY PRN PRN Reason: k level less than 3.5 Stop: 10/02/17 07:22 Quetiapine Fumarate (Seroquel) 100 mg PO DAILY [facility] Stop: 10/05/17 08:59 Last Admin: 08/09/17 08:14 Dose: 100 mg Quetiapine Fumarate 100 mg/ (Quetiapine Fumarate 25 mg) 125 mg PO HS [facility] Stop: 10/04/17 20:59 Last Admin: 08/09/17 21:57 Dose: 125 mg Rivaroxaban (Xarelto) 10 mg PO DAILY [facility] Stop: 10/04/17 08:59 Last Admin: 08/09/17 08:13 Dose: 10 mg Tamsulosin HCl (Flomax) 0.4 mg PO DAILY [facility] Stop: 10/02/17 08:59 Last Admin: 08/09/17 08:15 Dose: 0.4 mg Vitamin B Complex/Vit C/Folic Acid (Vitamin B Complex W/Vitamin C) 1 tab PO DAILY [facility] Stop: 10/02/17 08:59 Last Admin: 08/09/17 08:13 Dose: 1 tab Zinc Sulfate (Zinc Sulfate) 220 mg PO DAILY [facility] Stop: 10/02/17 08:59 Last Admin: 08/09/17 08:12 Dose: 220 mg Zolpidem Tartrate (Ambien) 5 mg PO HS PRN PRN Reason: Insomnia Stop: 10/02/17 07:20 General: Cooperative, No acute distress HEENT: Atraumatic, PERRLA Neck: Supple, no JVD Cardiovascular: Regular rate, Normal S1, Normal S2 Lungs: Other (has bl rales and congestion) Abdomen: Bowel sounds, Soft Extremities: Other (has bl bka) - Procedures Procedures: Procedures Procedure Code Date ASPIRATE PLEURA W/ IMAGING 36211 08/03/17 DRAINAGE OF LEFT PLEURAL CAVITY, PERCUTANEOUS APPROACH [id number] 08/03/17 Assessment/Plan - Assessment Assessment: Asp PNA ME VMN Anemia of Ch ill Psychosis Mod malnut CAD with hx of quad bypass sx in 2013 Dm-OOC BL BKA PAD Hyponatremia Diabetic Nephropathy and Neuropathy HTN-OOC L pleural effusion 10% L Pneumothorax - Plan Plan: Dr. Hernandez and Dr. Zimmerman have seen the pt. Has been receiving dialysis. On IV zosyn. Met with daughter. Discussed diabetic control. Status post L thoracentesis with 1.8 liters removed. Has L pneumothorax. It's decreased to 10% on repeat cxr as of 08/08/17. Dr. Saez and Dr. Hernandez following. ADDENDUM TO DC SUMMARY: Pt was to be DC'd to his SNF on 08/09/17. We are working to communicate with the SNF as pt was within 7 day bed hold. Nutritional Asmnt/Malnutr-PDOC - Dietary Evaluation Malnutrition Findings (Please click <Entered> for more info): Nutritional Asmnt/Malnutrition Start: 08/03/17 17: 24 Text: Status: Complete Freq: Document 08/03/17 17:24 LCHEN (Rec: 08/03/17 17:41 LCHENG [id number]) Nutritional Asmnt/Malnutrition Patient General Information Nutritional Screening High Risk Consult Diagnosis PNA Pertinent Medical Hx/Surgical Hx HTN, DM, dyslipidemia, PUD/ GERD, ESRD, thyroid disorder, anemia of CKD, BPH, CABG, bilateral BKA, amputations of right 3rd, 4th and 5th digits Subjective Information Consult received for BS 214 at admission and low moni score, chronic surgical site. Pt seen sleeping at time of visit. RN reported pt ate well , consumed 100% of breakfast this morning. Current Diet [facility]/ [facility] Pertinent Medications colace, iron, novolog, synthroid, vit B complex w/vit C, zinc Pertinent Labs 08/03 Na 134, K 3.5, Cl 101, BUN 15, Cr 2.6, glucose 214, POC 183-196, A1c 5.2, Ca 8.4 Nutritional Hx/Data Height 1.65 m Height (Calculated Centimeters) 165.1 Current Weight (lbs) 65.317 kg Weight (Calculated Kilograms) 65.3 Weight (Calculated Grams) 39505.3 [place] Body Weight 136 % [place] Body Weight 105 Body Mass Index (BMI) 23.9 GI Symptoms GI Symptoms None Last BM 08/03 x 2 Difficult in: None Skin Integrity/Comment: Moni 12 scab to left wrist and left arm, reddened scar to sacrum Current %PO Good (75-100%) Estimated Nutritional Goals BEE in Kcals: Using Current wt Calories/Kcals/Kg 25-30 Kcals Calculated 3749-6357 Protein: Using Current wt Protein g/k-1.2 Protein Calculated 64-77 Fluid: ml 1600-1920ml (1ml/kcal) Nutritional Problem 1. Problem Problem altered nutrition related labs Etiology hx of DM Signs/Symptoms: glucose 214, POC 183-196 Malnutrition Alert Protein-Calorie Malnutrition N/A Is there a minimum of two criteria No selected? Query Text:Check all the applicable criteria. A minimum of two criteria are recommended for diagnosis of either severe or non-severe malnutrition. Intervention/Recommendation Comments 1. Continue with CCHO-60gm diet as ordered. 2. Monitor PO intake, wt, labs and skin integrity 3. F/U as moderate risk in 3-5 days, 08/07-08/09 Expected Outcomes/Goals Expected Outcomes/Goals 1. PO intake to meet at least 75% of nutritional needs. 2. Wt stability, skin to remain intact, labs to approach WNL.
[2017-08-10] MEDS: INSULIN ASPART SLIDING SCALE 100 UNITS/ML UNIT SUBQ SCH ×4 (09:57→21:59)
[2017-08-10] MEDS: Aspirin 81mg Chewable Tab PO SCH (09:58)
[2017-08-10] MEDS: Lactobacillus Rhamnosus GG 15 Billion CFU CAP.SPRINK PO SCH (09:59)
[2017-08-10] MEDS: Ferrous Sulfate 325 MG TAB PO SCH ×3 (09:59→21:48)
[2017-08-10] MEDS: Vitamin B Complex w/Vitamin C Tab PO SCH (10:00)
[2017-08-10] MEDS ORDERED: Heparin Sodium 1,000 Units/mL Vial IVP ONE (11:04)
--- NOTE | 2017-08-10 22:31 | Progress Notes ---
DATE: 08/10/2017 Case was discussed with staff of the patient, reviewed records. This is a 66-year-old male who was admitted to the hospital on 08/03/2017. He came from a convalescent hospital from [place]. The patient has been agitated, irritable and aggressive with the staff, was transferred to the hospital. He is confused, agitated. He was unable to answer questions with history of dementia and psychosis. The patient continues to be easily agitated when the staff tries to help with his ADLs and seems to be restless. Continues to be unpredictable and impulsive. He is compliant with the medication with no side effects and he is on Ativan 1 mg every 4 hours as needed and Seroquel 100 mg daily and 125 mg at bedtime that was increased. He was seen by Dr. Lozano, with no side effects, no sedation, no nausea, no extrapyramidal symptoms. Thank you very much for allowing me to participate in the care of this most interesting gentleman. JOB# [id number]
[2017-08-11] MEDS: Piperacillin/Tazobact 2.25 gm in 0.9% NS 50 ML IV SCH ×2 (06:07→12:07)
[2017-08-11 06:20] LABS: % BASOPHILS 1.1 % (0.0-2.0); % EOSINOPHILS 4.3 % (0.0-5.0); % LYMPHOCYTES 27.5 % (20.0-50.0); % MONOCYTES 11.6 % (2.0-10.0); % NEUTROPHILS 55.5 % (40.0-80.0); BASOPHILE ABSOLUTE 0.1 Th/cumm (0-0.2); EOSINOPHILE ABSOLUTE 0.4 Th/cmm (0.1-0.4); HEMATOCRIT 24.4 % (41.0-60); HEMOGLOBIN 8.4 gm/dL (12-16); LYMPHOCYTE ABSOLUTE 2.4 Th/cmm (1.5-3.0); MEAN CELL VOLUME 93.9 fl (80-99); MEAN CORPUSCULAR HEMOGLOBIN 32.5 pg (27.0-31.0); MEAN CORPUSCULAR HGB CONC 34.6 pg (28.0-36.0); MEAN PLATELET VOLUME 7.8 fl; NEUTROPHILE ABSOLUTE 4.9 Th/cmm (1.8-8.0); PLATELET COUNT 281 Th/cmm (150-400); RED BLOOD COUNT 2.59 Mil/cmm (3.80-5.80); RED CELL DISTRIBUTION WIDTH 14.2 % (11.5-20.0); WHITE BLOOD COUNT 8.8 Th/cmm (4.8-10.8)
[2017-08-11 06:48] LABS: ANION GAP 13.7 (7.0-16.0); CALCIUM SERUM 8.4 mg/dL (8.6-10.3); CARBON DIOXIDE 25.3 mEq/L (21.0-31.0); CREATININE - SERUM 3.5 mg/dL (0.7-1.3); GFR AFRICAN-AMERICAN 22.5 ml/min (>90); GFR NON AFRICAN-AMERICAN 18.6 ml/min
[2017-08-11] MEDS: Levothyroxine 0.1 Mg Tab PO SCH (07:04)
[2017-08-11] MEDS: INSULIN ASPART SLIDING SCALE 100 UNITS/ML UNIT SUBQ SCH ×2 (07:08→12:52)
--- NOTE | 2017-08-11 08:33 | General Progress Note ---
Subjective - Review of Systems Service Date: 08/11/17 Subjective: Pt seen and eval. I've been discussing care with daughter in detail. She was able to answer many questions. 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 Pt is very non complaint with food. He still eats desserts in spite of dm-ooc. Pt more comfortable now. No fevers or chills. No cough. Has sob with exertion. Pt is status post L thoracentesis on 08/04/17, and 1.8 liters removed. Now has L 10% Pneumothorax, improved from 30%. ADDENDUM TO DC SUMMARY: Pt was to be DC'd to his SNF on 08/09/17. We are working to communicate with the SNF as pt was within 7 day bed hold. We've been sending inquires to several SNF's daily. Objective - Results Result Diagrams: 08/11/17 05:49 08/11/17 05:49 Recent Labs: Laboratory Last Values WBC 8.8 Th/cmm (4.8-10.8) 08/11/17 05:49 RBC 2.59 Mil/cmm (3.80-5.80) L 08/11/17 05:49 Hgb 8.4 gm/dL (12-16) L 08/11/17 05:49 Hct 24.4 % (41.0-60) L 08/11/17 05:49 MCV 93.9 fl (80-99) 08/11/17 05:49 MCH 32.5 pg (27.0-31.0) H 08/11/17 05:49 MCHC Differential 34.6 pg (28.0-36.0) 08/11/17 05:49 RDW 14.2 % (11.5-20.0) 08/11/17 05:49 Plt Count 281 Th/cmm (150-400) 08/11/17 05:49 MPV 7.8 fl 08/11/17 05:49 Neutrophils % 55.5 % (40.0-80.0) 08/11/17 05:49 Lymphocytes % 27.5 % (20.0-50.0) 08/11/17 05:49 Monocytes % 11.6 % (2.0-10.0) H 08/11/17 05:49 Eosinophils % 4.3 % (0.0-5.0) 08/11/17 05:49 Basophils % 1.1 % (0.0-2.0) 08/11/17 05:49 PT 11.3 SECONDS (9.5-11.5) 08/04/17 06:10 INR 1.09 (0.5-1.4) 08/04/17 06:10 PTT (Actin FS) 30.0 SECONDS (26.0-38.0) 08/04/17 06:10 Sodium 135 mEq/L (136-145) L 08/11/17 05:49 Potassium 4.0 mEq/L (3.5-5.1) 08/11/17 05:49 Chloride 100 mEq/L (98-107) 08/11/17 05:49 Carbon Dioxide 25.3 mEq/L (21.0-31.0) 08/11/17 05:49 Anion Gap 13.7 (7.0-16.0) 08/11/17 05:49 BUN 26 mg/dL (7-25) H 08/11/17 05:49 Creatinine 3.5 mg/dL (0.7-1.3) H 08/11/17 05:49 Est GFR ( Amer) 22.5 ml/min (>90) 08/11/17 05:49 Est GFR (Non-Af Amer) 18.6 ml/min 08/11/17 05:49 BUN/Creatinine Ratio 7.4 08/11/17 05:49 Glucose 140 mg/dL (70-105) H 08/11/17 05:49 POC Glucose 167 MG/DL (70 - 105) H 08/10/17 17:49 Hemoglobin A1c % 5.2 % (4.0-6.0) 08/03/17 01:15 Calcium 8.4 mg/dL (8.6-10.3) L 08/11/17 05:49 Magnesium 1.8 mg/dL (1.9-2.7) L 08/03/17 01:15 Total Bilirubin 0.6 mg/dL (0.3-1.0) 08/03/17 01:15 AST 22 U/L (13-39) 08/03/17 01:15 ALT 13 U/L (7-52) 08/03/17 01:15 Alkaline Phosphatase 189 U/L (34-104) H 08/03/17 01:15 Total Protein 6.4 gm/dL (6.0-8.3) 08/03/17 01:15 Albumin 2.8 gm/dL (4.2-5.5) L 08/03/17 01:15 Globulin 3.6 gm/dL 08/03/17 01:15 Albumin/Globulin Ratio 0.8 (1.0-1.8) L 08/03/17 01:15 TSH 5.22 uIU/ml (0.34-5.60) 08/03/17 01:15 Urine Source RANDOM 08/02/17 17:50 Urine Color YELLOW 08/02/17 17:50 Urine Clarity HAZY (CLEAR) 08/02/17 17:50 Urine pH 7.0 (4.6 - 8.0) 08/02/17 17:50 Ur Specific [place] 1.020 (1.005-1.030) 08/02/17 17:50 Urine Protein 100 mg/dL (NEGATIVE) H 08/02/17 17:50 Urine Glucose (UA) NEGATIVE mg/dL (NEGATIVE) 08/02/17 17:50 Urine Ketones NEGATIVE mg/dL (NEGATIVE) 08/02/17 17:50 Urine Blood LARGE (NEGATIVE) H 08/02/17 17:50 Urine Nitrate NEGATIVE (NEGATIVE) 08/02/17 17:50 Urine Bilirubin NEGATIVE (NEGATIVE) 08/02/17 17:50 Urine Urobilinogen 0.2 E.U./dL (0.2 - 1.0) 08/02/17 17:50 Ur Leukocyte Esterase TRACE (NEGATIVE) H 08/02/17 17:50 Urine RBC 25-50 /hpf (0-5) H 08/02/17 17:50 Urine WBC 0-2 /hpf (0-5) 08/02/17 17:50 Ur Epithelial Cells FEW /lpf (FEW) 08/02/17 17:50 Urine Bacteria NONE SEEN /hpf (NONE SEEN) 08/02/17 17:50 Fluid Source THROACENTHESIS 08/04/17 11:00 Fluid Color RED 08/04/17 11:00 Fluid Appearance BLOODY 08/04/17 11:00 Fluid WBC 239 /cumm 08/04/17 11:00 Fluid RBC 10741 /cumm 08/04/17 11:00 Fluid Neutrophils 5 % 08/04/17 11:00 Fluid Lymphocytes 89 % 08/04/17 11:00 Fluid Monocytes 4 % 08/04/17 11:00 Fluid Eosinophils 1 % 08/04/17 11:00 Fluid Basophils 1 % 08/04/17 11:00 Fluid Glucose 118.0 mg/dL 08/04/17 11:00 Fluid Total Protein 4.1 g/dL 08/04/17 11:00 Fluid LDH 190 U/L 08/04/17 11:00 - Physical Exam Vitals and I&O: Vital Signs Temp 97.8 F 08/11/17 04:00 Pulse 84 08/11/17 07:07 Resp 20 08/11/17 07:07 BP 110/68 08/11/17 06:18 Pulse Ox 97 08/11/17 07:07 Intake & Output 08/10/17 08/11/17 08/11/17 18:59 06:59 18:59 Intake Total 50 890 Output Total 1600 Balance 50 -710 Weight (lbs) 67.631 kg Intake: Intake, IV Amount 50 50 Piperacillin Sodium/ 50 50 Tazobact 2.25 gm In Sodium Chloride 0.9% 50 ml @ 100 mls/hr IV Q8HR [facility] Rx#:[id number] Oral 840 Output: Hemodialysis 1600 Other: # Voids 3 # Bowel Movements 1 Stool Characteristics Soft Soft Formed Formed Weight Source Bedscale Active Medications: Current Medications Acetaminophen (Tylenol) 650 mg PO Q6H PRN PRN Reason: HEADACHE/TEMP ABOVE 100F Stop: 10/02/17 07:22 Last Admin: 08/07/17 11:48 Dose: 650 mg Albuterol Sulfate (Albuterol 2.5mg/3ml Neb Ud) 2.5 mg HHN Q4HRT PRN PRN Reason: Shortness of Breath or Wheeze Stop: 10/02/17 06:59 Aspirin (Aspirin Chewable) 81 mg PO DAILY [facility] Stop: 10/02/17 08:59 Last Admin: 08/10/17 09:58 Dose: Not Given Atorvastatin Calcium (Lipitor) 40 mg PO HS [facility] Stop: 10/02/17 20:59 Last Admin: 08/10/17 21:51 Dose: 40 mg Carvedilol (Coreg) 3.125 mg PO BID [facility] Stop: 10/02/17 08:59 Last Admin: 08/10/17 17:29 Dose: 3.125 mg Dextrose (D50w) 50 ml IVP PRN PRN PRN Reason: BLOOD SUGAR BELOW 60 Stop: 10/02/17 07:22 Docusate Sodium (Colace) 100 mg PO BID [facility] Stop: 10/02/17 08:59 Last Admin: 08/10/17 17:30 Dose: 100 mg Famotidine (Pepcid) 20 mg PO [facility] Stop: 10/02/17 20:59 Last Admin: 08/10/17 21:48 Dose: 20 mg Ferrous Sulfate (Iron) 325 mg PO TID [facility] Stop: 10/02/17 08:59 Last Admin: 08/10/17 21:48 Dose: 325 mg Gabapentin (Neurontin) 300 mg PO [facility] Stop: 10/02/17 20:59 Last Admin: 08/10/17 21:48 Dose: 300 mg Hydralazine HCl (Apresoline) 25 mg PO TID [facility] Stop: 10/02/17 08:59 Last Admin: 08/11/17 06:18 Dose: Not Given Potassium Chloride 40 meq/Lidocaine HCl 25 mg/ Sodium Chloride 272.5 mls @ 68 mls/hr IV DAILY PRN PRN Reason: k level less than 3.2 Stop: 10/02/17 07:22 Magnesium Sulfate (Magnesium Sulfate Premix) 2 gm in 50 mls @ 25 mls/hr IV DAILY PRN PRN Reason: Magnesium level less than 1.6 Stop: 10/02/17 07:22 Piperacillin Sod/Tazobactam (Sod 2.25 gm/ Sodium Chloride) 50 mls @ 100 mls/hr IV Q8HR [facility] Stop: 10/03/17 12:59 Last Admin: 08/11/17 06:07 Dose: 100 mls/hr Insulin Aspart (Novolog Insulin Sliding Scale) 0 units SUBQ ACHS [facility] PRN Reason: Protocol Stop: 10/02/17 07:29 Last Admin: 08/11/17 07:08 Dose: Not Given Ipratropium [place] (Atrovent Neb 0.5mg/2.5ml) 0.5 mg HHN Q4HRT PRN PRN Reason: Shortness of Breath or Wheeze Stop: 10/02/17 07:20 Isosorbide Dinitrate (Isordil) 10 mg PO TID [facility] Stop: 10/02/17 08:59 Last Admin: 08/10/17 21:47 Dose: 10 mg Lactobacillus Rhamnosus (Culturelle 15b) 1 each PO DAILY [facility] Stop: 10/07/17 08:59 Last Admin: 08/10/17 09:59 Dose: Not Given Levothyroxine Sodium (Synthroid) 0.1 mg PO QDAC [facility] Stop: 10/02/17 08:59 Last Admin: 08/11/17 07:04 Dose: 0.1 mg Lorazepam (Ativan) 1 mg IVP Q4HR PRN; Protocol PRN Reason: Anxiety Stop: 10/02/17 07:22 Last Admin: 08/09/17 21:06 Dose: 1 mg Magnesium Oxide (Mag-Oxide) 400 mg PO BID PRN PRN Reason: Mg less than 1.9 Stop: 10/02/17 07:22 Last Admin: 08/04/17 08:42 Dose: 400 mg Miscellaneous (Clinical Monitoring) 1 ea DAILY PRN PRN Reason: RENAL Stop: 10/02/17 10:23 Miscellaneous (Zosyn Iv Per Pharmacy) 1 ea PRN PRN PRN Reason: PROTOCOL Stop: 10/03/17 08:27 Miscellaneous (Pharmacy To Dose) 1 ea MC PRN [facility] Stop: 10/05/17 15:59 Miscellaneous (Probiotic Screen) 1 [facility] PRN PRN PRN Reason: PROTOCOL Stop: 10/07/17 08:59 Morphine Sulfate (Morphine) 1 mg IVP Q4HR PRN PRN Reason: Severe Pain Stop: 10/02/17 07:22 Last Admin: 08/06/17 03:24 Dose: 1 mg Nitroglycerin (Nitrostat) 0.4 mg SL TID PRN PRN Reason: Chest Pain Stop: 10/02/17 07:20 Ondansetron HCl (Zofran) 4 mg IVP Q6H PRN PRN Reason: Nausea / Vomiting Stop: 10/02/17 07:22 Potassium Chloride (Klor-Con) 40 meq PO DAILY PRN PRN Reason: k level less than 3.5 Stop: 10/02/17 07:22 Quetiapine Fumarate (Seroquel) 100 mg PO DAILY [facility] Stop: 10/05/17 08:59 Last Admin: 08/10/17 09:59 Dose: Not Given Quetiapine Fumarate 100 mg/ (Quetiapine Fumarate 25 mg) 125 mg PO HS [facility] Stop: 10/04/17 20:59 Last Admin: 08/10/17 22:00 Dose: 125 mg Rivaroxaban (Xarelto) 10 mg PO DAILY [facility] Stop: 10/04/17 08:59 Last Admin: 08/10/17 09:59 Dose: Not Given Tamsulosin HCl (Flomax) 0.4 mg PO DAILY [facility] Stop: 10/02/17 08:59 Last Admin: 08/10/17 10:00 Dose: Not Given Vitamin B Complex/Vit C/Folic Acid (Vitamin B Complex W/Vitamin C) 1 tab PO DAILY [facility] Stop: 10/02/17 08:59 Last Admin: 08/10/17 10:00 Dose: Not Given Zinc Sulfate (Zinc Sulfate) 220 mg PO DAILY [facility] Stop: 10/02/17 08:59 Last Admin: 08/10/17 10:00 Dose: Not Given Zolpidem Tartrate (Ambien) 5 mg PO HS PRN PRN Reason: Insomnia Stop: 10/02/17 07:20 General: Cooperative, No acute distress HEENT: Atraumatic, PERRLA Neck: Supple, no JVD Cardiovascular: Regular rate, Normal S1, Normal S2 Lungs: Other (has bl rales and congestion) Abdomen: Bowel sounds, Soft Extremities: Other (has bl bka) - Procedures Procedures: Procedures Procedure Code Date ASPIRATE PLEURA W/ IMAGING 24858 08/03/17 DRAINAGE OF LEFT PLEURAL CAVITY, PERCUTANEOUS APPROACH [id number] 08/03/17 Assessment/Plan - Assessment Assessment: Asp PNA ME VMN Anemia of Ch ill Psychosis Mod malnut CAD with hx of quad bypass sx in 2013 Dm-OOC BL BKA PAD Hyponatremia Diabetic Nephropathy and Neuropathy HTN-OOC L pleural effusion 10% L Pneumothorax - Plan Plan: Dr. Hernandez and Dr. Zimmerman have seen the pt. Has been receiving dialysis. On IV zosyn. Met with daughter. Discussed diabetic control. Status post L thoracentesis with 1.8 liters removed. Has L pneumothorax. It's decreased to 10% on repeat cxr as of 08/08/17. Dr. Saez and Dr. Hernandez following. ADDENDUM TO DC SUMMARY: Pt was to be DC'd to his SNF on 08/09/17. We are working to communicate with the SNF as pt was within 7 day bed hold. Sending inquiries to other facilities. Nutritional Asmnt/Malnutr-PDOC - Dietary Evaluation Malnutrition Findings (Please click <Entered> for more info): Nutritional Asmnt/Malnutrition Start: 08/03/17 17: 24 Text: Status: Complete Freq: Document 08/03/17 17:24 LCHENG (Rec: 08/03/17 17:41 LCHENG [id number]) Nutritional Asmnt/Malnutrition Patient General Information Nutritional Screening High Risk Consult Diagnosis PNA Pertinent Medical Hx/Surgical Hx HTN, DM, dyslipidemia, PUD/ GERD, ESRD, thyroid disorder, anemia of CKD, BPH, CABG, bilateral BKA, amputations of right 3rd, 4th and 5th digits Subjective Information Consult received for BS 214 at admission and low moni score, chronic surgical site. Pt seen sleeping at time of visit. RN reported pt ate well , consumed 100% of breakfast this morning. Current Diet [facility]/ [facility] Pertinent Medications colace, iron, novolog, synthroid, vit B complex w/vit C, zinc Pertinent Labs 08/03 Na 134, K 3.5, Cl 101, BUN 15, Cr 2.6, glucose 214, POC 183-196, A1c 5.2, Ca 8.4 Nutritional Hx/Data Height 1.65 m Height (Calculated Centimeters) 165.1 Current Weight (lbs) 65.317 kg Weight (Calculated Kilograms) 65.3 Weight (Calculated Grams) 37204.3 Freedom Body Weight 136 % Freedom Body Weight 105 Body Mass Index (BMI) 23.9 GI Symptoms GI Symptoms None Last BM 08/03 x 2 Difficult in: None Skin Integrity/Comment: Moni 12 scab to left wrist and left arm, reddened scar to sacrum Current %PO Good (75-100%) Estimated Nutritional Goals BEE in Kcals: Using Current wt Calories/Kcals/Kg 25-30 Kcals Calculated 4611-8784 Protein: Using Current wt Protein g/k-1.2 Protein Calculated 64-77 Fluid: ml 1600-1920ml (1ml/kcal) Nutritional Problem 1. Problem Problem altered nutrition related labs Etiology hx of DM Signs/Symptoms: glucose 214, POC 183-196 Malnutrition Alert Protein-Calorie Malnutrition N/A Is there a minimum of two criteria No selected? Query Text:Check all the applicable criteria. A minimum of two criteria are recommended for diagnosis of either severe or non-severe malnutrition. Intervention/Recommendation Comments 1. Continue with CCHO-60gm diet as ordered. 2. Monitor PO intake, wt, labs and skin integrity 3. F/U as moderate risk in 3-5 days, 08/07-08/09 Expected Outcomes/Goals Expected Outcomes/Goals 1. PO intake to meet at least 75% of nutritional needs. 2. Wt stability, skin to remain intact, labs to approach WNL.
--- NOTE | 2017-08-11 08:34 | Diagnostic Imaging Report ---
Portable chest x-ray HISTORY: Shortness of breath Compared with prior exam of August 08, 2017, the heart remains enlarged. Density noted in the left lower hemithorax. Question small effusion. Surgical changes noted. IMPRESSION: 1. No significant change in the cardiopulmonary status.
[2017-08-11] MEDS: Aspirin 81mg Chewable Tab PO SCH (08:52)
[2017-08-11] MEDS: Ferrous Sulfate 325 MG TAB PO SCH (08:52)
[2017-08-11] MEDS: Lactobacillus Rhamnosus GG 15 Billion CFU CAP.SPRINK PO SCH (08:53)
[2017-08-11] MEDS: Vitamin B Complex w/Vitamin C Tab PO SCH (08:54)
[2017-08-11 12:16] LABS: HEP A AB IGM Negative (Negative); HEP B CORE IGM Negative (Negative); HEP B SURFACE AG QL Negative (Negative); HEP C ANTIBODY <0.1 s/co ratio (0.0-0.9)
--- NOTE | 2017-08-11 20:56 | Progress Notes ---
DATE: 08/11/2017 SUBJECTIVE: Case was discussed with staff of the patient. The patient continues to be unpredictable, easily agitated, irritable, continues to be unable to make safe plan for self-care or answer questions appropriately. Continues to need redirection. He has been compliant with the medication with no side effects, no sedation, no nausea, no extrapyramidal symptoms. Thank you very much for allowing me to participate in the care of this most interesting gentleman. [facility]# [id number]
== END 2017-08-11 13:35 | DRG 177 ==
LOC: ER 00:51 → MSI 02:18 → TELE 08-04 15:57
PROVIDERS: ADMIT General Practice; ATTEND General Practice
PROC: 0W9B3ZZ Drainage of Left Pleural Cavity, Percutaneous Approach (ICD-10-PCS; principal; 2017-08-04)
PROC: 5A1D70Z Performance of Urinary Filtration, Intermittent, Less than 6 Hours Per Day (ICD-10-PCS; 2017-08-05)
PROC: 5A1D70Z Performance of Urinary Filtration, Intermittent, Less than 6 Hours Per Day (ICD-10-PCS; 2017-08-06)
PROC: 5A1D70Z Performance of Urinary Filtration, Intermittent, Less than 6 Hours Per Day (ICD-10-PCS; 2017-08-08)
PROC: 5A1D70Z Performance of Urinary Filtration, Intermittent, Less than 6 Hours Per Day (ICD-10-PCS; 2017-08-10)
DX: J69.0 Pneumonitis due to inhalation of food and vomit (principal); G93.41 Metabolic encephalopathy; N17.0 Acute kidney failure with tubular necrosis; N18.6 End stage renal disease; E44.0 Moderate protein-calorie malnutrition; E87.1 Hypo-osmolality and hyponatremia; F03.91 Unspecified dementia, unspecified severity, with behavioral disturbance; I12.0 Hypertensive chronic kidney disease with stage 5 chronic kidney disease or end stage renal disease; J90 Pleural effusion, not elsewhere classified; J93.9 Pneumothorax, unspecified; E11.65 Type 2 diabetes mellitus with hyperglycemia; F29 Unspecified psychosis not due to a substance or known physiological condition; E78.5 Hyperlipidemia, unspecified; E11.22 Type 2 diabetes mellitus with diabetic chronic kidney disease; E11.40 Type 2 diabetes mellitus with diabetic neuropathy, unspecified; D63.1 Anemia in chronic kidney disease; K21.9 Gastro-esophageal reflux disease without esophagitis; E11.51 Type 2 diabetes mellitus with diabetic peripheral angiopathy without gangrene; N40.0 Benign prostatic hyperplasia without lower urinary tract symptoms; E87.6 Hypokalemia; E11.21 Type 2 diabetes mellitus with diabetic nephropathy; Z89.421 Acquired absence of other right toe(s); Z89.512 Acquired absence of left leg below knee; Z89.511 Acquired absence of right leg below knee; Z99.2 Dependence on renal dialysis; Z68.24 Body mass index [BMI] 24.0-24.9, adult; Z86.718 Personal history of other venous thrombosis and embolism; Z95.1 Presence of aortocoronary bypass graft
CPT/HCPCS: 36415-UA; 71045-TC; 71250-TC; 76942-TC; 80048-TC; 80053-TC; 80074-90; 81001-TC; 82270-TC; 82945-TC; 82948-90; 83036-90; 83615-TC; 83735-TC; 84157-TC; 84443-TC; 85025-TC; 85610-TC; 87070-90; 87075-90; 87205-90; 89051-TC; 90937; 93005; 94760; J1644; J1815; J2001; J2060; J2543; J3480; J7030; Z7610